=== PATIENT | female | born 1950 | race Caucasian/White ===

== ENCOUNTER 2020-06-07 13:37 | Outpatient (REF) | payer MEDICARE, MEDICAID, SELFPAY ==
--- NOTE | 2020-06-07 | MM_ITS ---
EXAMINATION: MM SCREENING DIGITAL BREAST TOMOSYNTHESIS, BILATERAL CLINICAL INFORMATION: Screening. Asymptomatic. The lifetime risk of breast cancer based on the Tyrer-Cuzick Model is 4.3%. COMPARISON: Mammography: January 28, 2019 and studies dating back to January 05, 2017 TECHNIQUE: Digital breast tomosynthesis is performed in both the craniocaudal and mediolateral oblique views along with computer-aided detection (CAD). Synthesized 2D images are generated from the tomosynthesis. FINDINGS: The breasts are almost entirely fatty (ACR BI-RADS breast composition Category a). There are no significant masses, abnormal calcifications, or other abnormalities. MM/MM tomosynthesis screening BI IMPRESSION: There are no significant changes from prior study. ASSESSMENT: BI-RADS 1: Negative RECOMMENDATION: Routine annual mammography screening. This patient's information was entered into a reminder system with a target due date for their next mammogram.
== END 2020-06-07 13:38 | disposition home or self-care (01) ==
LOC: HO.MAMMO 13:37
PROVIDERS: PCP Family Medicine; Visit Provider Family Medicine
DX: Z12.31 Encounter for screening mammogram for malignant neoplasm of breast (principal)
CPT/HCPCS: 77063; 77067

== ENCOUNTER 2020-06-28 17:42 | Outpatient (REF) | payer MEDICARE, MEDICAID, SELFPAY ==
[2020-06-28 18:28] LABS: Anion Gap 14 (12-20); Blood Urea Nitrogen 26 mg/dL (9-16); Carbon Dioxide 29 mmol/L (22-29); Chloride 104 mmol/L (96-108); Estimated Glomerular Filt Rate > 60; Glucose Random 95 mg/dL (60-115); Potassium 3.9 mmol/l (3.3-5.1); Sodium 143 mmol/L (135-145)
[2020-06-28 18:34] LABS: B Type Natriuretic Peptide 40 pg/mL (<100)
== END 2020-06-28 17:43 | disposition home or self-care (01) ==
LOC: HO.LAB 17:42
PROVIDERS: PCP Family Medicine; Visit Provider Family Medicine
DX: I50.9 Heart failure, unspecified (principal); R60.9 Edema, unspecified; Z00.00 Encounter for general adult medical examination without abnormal findings; E03.9 Hypothyroidism, unspecified
CPT/HCPCS: 80048; 83880; 84439; 84443

== ENCOUNTER 2020-07-17 15:34 | Outpatient (REF) | payer MEDICARE, MEDICAID, SELFPAY ==
[2020-07-17 15:57] LABS: MANUAL DIFF FLAG NO
[2020-07-17 15:59] LABS: Basophils Absolute Auto 0.1 X10*3/uL (0.0-0.2); Basophils Percent Auto 0.6 % (0-2); Eosinophils Absolute Auto 0.2 X10*3/uL (0.0-0.4); Eosinophils Percent Auto 2.1 % (0-4); Hematocrit 40.3 % (37-47); Hemoglobin 13.2 g/dl (12.0-16.0); Imm Gran Abs Auto 0.02 X10*3/uL (0.00-0.03); Imm Gran Pct Auto 0.2 % (0.0-0.4); Lymphocytes Absolute Auto 1.4 X10*3/uL (1.2-4.9); Lymphocytes Percent Auto 16.5 % (20-40); Mean Corpuscular HGB Conc 32.8 g/dl (31.0-35.0); Mean Corpuscular Hemoglobin 30.1 pg (27.0-33.0); Mean Platelet Volume 9.9 fL (9.4-12.3); Monocytes Absolute Auto 0.7 X10*3/uL (0.1-1.2); Monocytes Percent Auto 7.9 % (2-11); Neutrophils Absolute Auto 6.1 X10*3/uL (2.0-8.3); Neutrophils Percent Auto 72.7 % (45-73); Platelet Count 250 X10*3/uL (160-400); Red Blood Count 4.38 X10*6/uL (4.20-5.50); Red Cell Distribution Width 11.9 % (11.0-16.0); White Blood Count 8.5 X10*3/uL (4.8-10.8)
[2020-07-17 16:28] LABS: Iron 62 mcg/dL (30-160); Percent Iron Saturation 18 % (15-50); Total Iron Binding Capacity 339 mcg/dL (228-428); Unsaturated Iron Binding 277 ug/dL
== END 2020-07-17 15:35 | disposition home or self-care (01) ==
LOC: HO.LAB 15:34
PROVIDERS: PCP Family Medicine; Visit Provider Family Medicine
DX: R53.83 Other fatigue (principal)
CPT/HCPCS: 36415; 83540; 85025

== ENCOUNTER 2020-10-19 14:06 | Outpatient (REF) | payer MEDICARE, MEDICAID, SELFPAY ==
[2020-10-19 14:22] LABS: Glucose Urine UA NEG (NEG); Leukocyte Esterase Urine NEG (NEG); Nitrite Urine NEG (NEG); Specific Gravity - Urine 1.015 (1.005-1.025); Urine Blood TRACE (NEG); Urine Ketones NEG (NEG); Urine Protein NEG (NEG-TRACE)
[2020-10-19 14:23] LABS: Appearance Urine CLEAR; Color Urine YELLOW
[2020-10-19 14:36] LABS: Mucus Urine 1+ /LPF; Squamous Epithelial Cell Urine TRACE /LPF; WBC Urine 0-2 /HPF (0-4)
== END 2020-10-19 14:07 | disposition home or self-care (01) ==
LOC: HO.LNP 14:06
PROVIDERS: Visit Provider Family Medicine
DX: R82.998 Other abnormal findings in urine (principal)
CPT/HCPCS: 81001

== ENCOUNTER 2020-12-26 12:48 | Outpatient (REF) | payer MEDICARE, MEDICAID, SELFPAY ==
[2020-12-26 14:37] LABS: B Type Natriuretic Peptide 23 pg/mL (<100)
[2020-12-26 14:44] LABS: Anion Gap 12 (12-20); Blood Urea Nitrogen 34 mg/dL (9-16); Calcium 9.1 mg/dL (8.4-10.2); Carbon Dioxide 25 mmol/L (22-29); Chloride 105 mmol/L (96-108); Estimated Glomerular Filt Rate > 60; Glucose Random 119 mg/dL (60-115); Potassium 4.3 mmol/L (3.3-5.1); Sodium 138 mmol/L (135-145)
== END 2020-12-26 12:49 | disposition home or self-care (01) ==
LOC: HO.WFDLDS 12:48
PROVIDERS: Visit Provider Family Medicine
DX: Z00.00 Encounter for general adult medical examination without abnormal findings (principal); I50.9 Heart failure, unspecified
CPT/HCPCS: 36415; 80048; 83880

== ENCOUNTER 2021-01-01 13:44 | Outpatient (REF) | payer MEDICARE, MEDICAID, SELFPAY ==
--- NOTE | ~2021-01-01 | CT_ITS ---
EXAMINATION: CT CHEST WITHOUT CONTRAST CLINICAL INFORMATION: Pulmonary nodule COMPARISON: Previous chest x-ray December 2018 TECHNIQUE: Multidetector volumetric CT imaging of the chest was done. Axial MIP volume rendering provided. Sagittal and coronal reformatted images were obtained. This CT examination was performed using dose optimization techniques as appropriate, variously including the following: *Automated exposure control *Adjustment of mA and/or kV according to patient size (this includes techniques or standardized protocols for targeted exams where dose is matched to indication/reason for exam; i.e. extremities or head) *Use of iterative reconstruction technique DLP: 114 mGy-cm FINDINGS: LUNGS: There is right apical pleural thickening. There is a 6 mm right apical nodule axial image 86 series 7. This may be related to right apical pleural thickening. There is subsegmental atelectasis or scarring seen in the lingula. The lungs are otherwise clear. MEDIASTINUM: The mediastinum is normal. PLEURA: There is no pleural effusion. No pleural mass or thickening. AXILLA: No lymphadenopathy. UPPER ABDOMEN: There is a 5 mm low-attenuation lesion high in the right lobe of the liver axial image 50 series 3 probably representing a cyst. Images through the upper abdomen are otherwise unremarkable. OSSEOUS STRUCTURES: There is mild thoracolumbar scoliosis and degenerative change of the spine. CT/CT chest wo con IMPRESSION: Right apical pleural thickening. 6 mm peripheral or subpleural right apical pulmonary nodule. This may be related to pleural thickening.
== END 2021-01-01 13:45 | disposition home or self-care (01) ==
LOC: HO.CT 13:44
PROVIDERS: Visit Provider Family Medicine
DX: R91.1 Solitary pulmonary nodule (principal)
CPT/HCPCS: 71250

== ENCOUNTER 2021-01-25 12:35 | Outpatient (REF) | payer MEDICARE, MEDICAID, SELFPAY ==
--- NOTE | ~2021-01-25 | XR_ITS ---
EXAMINATION: XR BILATERAL HAND SERIES XR BILATERAL FOOT SERIES CLINICAL INFORMATION: Pain in hands and feet. COMPARISON: None. TECHNIQUE: 3 views of each hand. 3 views of each foot. FINDINGS: Right Hand: The bones, joints and soft tissues are normal. Left Hand: The bones, joints and soft tissues are normal. Right Foot: There is mild hallux valgus. Mild joint space narrowing of the 1st metatarsophalangeal joint. The bones, joints and soft tissues are otherwise normal. Left Foot: There is moderate hallux valgus. There is mild joint space narrowing of the 1st metatarsophalangeal joint. Remaining bones, joints and soft tissues are normal. XR/XR hand RT min 3V IMPRESSION: RIGHT AND LEFT HANDS: Normal. RIGHT FOOT: Hallux valgus with mild arthrosis of the 1st metatarsophalangeal joint. LEFT FOOT: Hallux valgus with mild arthrosis of the 1st metatarsophalangeal joint.
--- NOTE | ~2021-01-25 | XR_ITS ---
EXAMINATION: XR BILATERAL HAND SERIES XR BILATERAL FOOT SERIES CLINICAL INFORMATION: Pain in hands and feet. COMPARISON: None. TECHNIQUE: 3 views of each hand. 3 views of each foot. FINDINGS: Right Hand: The bones, joints and soft tissues are normal. Left Hand: The bones, joints and soft tissues are normal. Right Foot: There is mild hallux valgus. Mild joint space narrowing of the 1st metatarsophalangeal joint. The bones, joints and soft tissues are otherwise normal. Left Foot: There is moderate hallux valgus. There is mild joint space narrowing of the 1st metatarsophalangeal joint. Remaining bones, joints and soft tissues are normal. XR/XR foot LT 2V IMPRESSION: RIGHT AND LEFT HANDS: Normal. RIGHT FOOT: Hallux valgus with mild arthrosis of the 1st metatarsophalangeal joint. LEFT FOOT: Hallux valgus with mild arthrosis of the 1st metatarsophalangeal joint.
--- NOTE | ~2021-01-25 | XR_ITS ---
EXAMINATION: XR BILATERAL HAND SERIES XR BILATERAL FOOT SERIES CLINICAL INFORMATION: Pain in hands and feet. COMPARISON: None. TECHNIQUE: 3 views of each hand. 3 views of each foot. FINDINGS: Right Hand: The bones, joints and soft tissues are normal. Left Hand: The bones, joints and soft tissues are normal. Right Foot: There is mild hallux valgus. Mild joint space narrowing of the 1st metatarsophalangeal joint. The bones, joints and soft tissues are otherwise normal. Left Foot: There is moderate hallux valgus. There is mild joint space narrowing of the 1st metatarsophalangeal joint. Remaining bones, joints and soft tissues are normal. XR/XR hand LT min 3V IMPRESSION: RIGHT AND LEFT HANDS: Normal. RIGHT FOOT: Hallux valgus with mild arthrosis of the 1st metatarsophalangeal joint. LEFT FOOT: Hallux valgus with mild arthrosis of the 1st metatarsophalangeal joint.
--- NOTE | ~2021-01-25 | XR_ITS ---
EXAMINATION: XR BILATERAL HAND SERIES XR BILATERAL FOOT SERIES CLINICAL INFORMATION: Pain in hands and feet. COMPARISON: None. TECHNIQUE: 3 views of each hand. 3 views of each foot. FINDINGS: Right Hand: The bones, joints and soft tissues are normal. Left Hand: The bones, joints and soft tissues are normal. Right Foot: There is mild hallux valgus. Mild joint space narrowing of the 1st metatarsophalangeal joint. The bones, joints and soft tissues are otherwise normal. Left Foot: There is moderate hallux valgus. There is mild joint space narrowing of the 1st metatarsophalangeal joint. Remaining bones, joints and soft tissues are normal. XR/XR foot RT 2V IMPRESSION: RIGHT AND LEFT HANDS: Normal. RIGHT FOOT: Hallux valgus with mild arthrosis of the 1st metatarsophalangeal joint. LEFT FOOT: Hallux valgus with mild arthrosis of the 1st metatarsophalangeal joint.
[2021-01-25 14:02] LABS: MANUAL DIFF FLAG NO
[2021-01-25 14:09] LABS: Basophils Percent Auto 0.8 % (0-2); Eosinophils Absolute Auto 0.2 X10*3/uL (0.0-0.4); Eosinophils Percent Auto 4.4 % (0-4); Hematocrit 41.1 % (37-47); Hemoglobin 13.3 g/dl (12.0-16.0); Imm Gran Abs Auto 0.01 X10*3/uL (0.00-0.03); Imm Gran Pct Auto 0.2 % (0.0-0.4); Lymphocytes Absolute Auto 1.1 X10*3/uL (1.2-4.9); Lymphocytes Percent Auto 22.2 % (20-40); Mean Corpuscular HGB Conc 32.4 g/dl (31.0-35.0); Mean Corpuscular Hemoglobin 29.7 pg (27.0-33.0); Mean Corpuscular Volume 91.7 fL (80-98); Monocytes Absolute Auto 0.4 X10*3/uL (0.1-1.2); Monocytes Percent Auto 7.9 % (2-11); Neutrophils Absolute Auto 3.2 X10*3/uL (2.0-8.3); Neutrophils Percent Auto 64.5 % (45-73); Platelet Count 273 X10*3/uL (160-400); Red Blood Count 4.48 X10*6/uL (4.20-5.50); Red Cell Distribution Width 12.1 % (11.0-16.0)
[2021-01-25 14:41] LABS: Alanine Aminotransferase 16 U/L (0-31); Albumin Level 4.1 g/dL (3.5-5.0); Alkaline Phosphatase 89 U/L (39-117); Anion Gap 14 (12-20); Aspartate Amino Transferase 19 U/L (5-31); Bilirubin Total 0.4 mg/dL (0.0-1.0); Blood Urea Nitrogen 24 mg/dL (9-16); C Reactive Protein 0.12 mg/dL (< or = 0.50); Calcium 9.8 mg/dL (8.4-10.2); Carbon Dioxide 27 mmol/L (22-29); Chloride 104 mmol/L (96-108); Estimated Glomerular Filt Rate > 60; Glucose Random 78 mg/dL (60-115); Potassium 4.6 mmol/L (3.3-5.1); Sodium 140 mmol/L (135-145); Total Protein 7.3 g/dL (6.5-8.0)
[2021-01-25 14:51] LABS: Rheumatoid Factor < 15.0 IU/mL (<15.0)
[2021-01-25 14:52] LABS: Thyroid Stimulating Hormone 2.71 uIU/mL (0.32-4.0)
[2021-01-25 15:08] LABS: Erythrocyte Sedimentation Rate 12 MM/HR (0-20)
[2021-01-30 09:42] LABS: Cyclic Citrullinated Peptide <16 UNITS
[2021-01-31 20:12] LABS: Vitamin D 25-OH, D2 <4 ng/mL; Vitamin D 25-OH, D3 22 ng/mL; Vitamin D 25-OH, Total 22 ng/mL (30-100)
== END 2021-01-25 12:36 | disposition home or self-care (01) ==
LOC: HO.LAB 12:35
PROVIDERS: PCP Family Medicine; Visit Provider Student in an Organized Health Care Education/Training Program
DX: M25.50 Pain in unspecified joint (principal); M79.641 Pain in right hand; M79.642 Pain in left hand; M25.551 Pain in right hip; M79.672 Pain in left foot; M79.671 Pain in right foot; Z79.899 Other long term (current) drug therapy; Z87.891 Personal history of nicotine dependence
CPT/HCPCS: 36415; 73130; 73620; 80053; 82306; 84443; 85025; 85652; 86140; 86200; 86431; 99202

== ENCOUNTER 2021-06-27 11:34 | Outpatient (REF) | payer MEDICARE, MEDICAID, SELFPAY ==
[2021-06-27 13:53] LABS: MANUAL DIFF FLAG NO
[2021-06-27 14:01] LABS: Basophils Percent Auto 0.6 % (0-2); Eosinophils Absolute Auto 0.1 X10*3/uL (0.0-0.4); Eosinophils Percent Auto 1.5 % (0-4); Hematocrit 39.1 % (37.0-47.0); Hemoglobin 12.8 g/dl (12.0-16.0); Imm Gran Abs Auto 0.02 X10*3/uL (0.00-0.03); Imm Gran Pct Auto 0.3 % (0.0-0.4); Lymphocytes Absolute Auto 1.1 X10*3/uL (1.2-4.9); Mean Corpuscular HGB Conc 32.7 g/dl (31.0-35.0); Mean Corpuscular Volume 91.6 fL (80.0-98.0); Monocytes Absolute Auto 0.6 X10*3/uL (0.1-1.2); Neutrophils Absolute Auto 4.7 x10*3/uL (2.0-8.3); Neutrophils Percent Auto 71.6 % (45-73); Platelet Count 267 X10*3/uL (160-400); Red Blood Count 4.27 X10*6/uL (4.20-5.50); Red Cell Distribution Width 12.4 % (11.0-16.0); White Blood Count 6.6 X10*3/uL (4.8-10.8)
[2021-06-27 14:11] LABS: Appearance Urine HAZY; Color Urine YELLOW; Glucose Urine UA NEG (NEG); Leukocyte Esterase Urine TRACE (NEG); Nitrite Urine NEG (NEG); Specific Gravity - Urine >= 1.030 (1.005-1.025); Urine Blood NEG (NEG); Urine Ketones 5 MG/DL (NEG); Urine Protein TRACE MG/DL (NEG-TRACE)
[2021-06-27 14:28] LABS: Alanine Aminotransferase 15 U/L (0-31); Albumin Level 4.2 g/dL (3.5-5.0); Alkaline Phosphatase 89 U/L (39-117); Anion Gap 12 (12-20); Aspartate Amino Transferase 18 U/L (5-31); Bilirubin Total 0.4 mg/dL (0.0-1.0); Blood Urea Nitrogen 20 mg/dL (9-16); Calcium 9.4 mg/dL (8.4-10.2); Carbon Dioxide 28 mmol/L (22-29); Chloride 105 mmol/L (96-108); Estimated Glomerular Filt Rate > 60; Glucose Random 115 mg/dL (60-115); Potassium 3.9 mmol/L (3.3-5.1); Sodium 141 mmol/L (135-145); Total Protein 7.2 g/dL (6.5-8.0)
[2021-06-27 14:37] LABS: Amorphous Sediment Urine 3+ /LPF; RBC Urine 0 /HPF (0); WBC Urine 0-2 /HPF (0-4)
== END 2021-06-27 11:35 | disposition home or self-care (01) ==
LOC: HO.WFDLDS 11:34
PROVIDERS: Visit Provider Family Medicine
DX: Z00.00 Encounter for general adult medical examination without abnormal findings (principal)
CPT/HCPCS: 36415; 80053; 81001; 81003; 85025

== ENCOUNTER 2021-06-28 09:36 | Emergency (ER) | payer MEDICARE, MEDICAID, SELFPAY ==
--- NOTE | ~2021-06-28 | XR_ITS ---
EXAMINATION: XR CHEST CLINICAL INFORMATION: SOB. COMPARISON: CT chest 01/01/2021. Chest x-ray 01/13/2019 TECHNIQUE: 2 views of the chest were obtained. FINDINGS: The lungs are expanded and clear of acute process. Heart size is enlarged. Pulmonary vascularity is normal. No gross bony abnormality seen. XR/XR chest 2V IMPRESSION: Mild cardiomegaly. No acute process seen.
[2021-06-28 09:46] VITALS: BP 125/74; PULSE 80; RESP 20; TEMP 36.9; O2SAT 95; BMI 20.3
--- NOTE | 2021-06-28 09:54 | ED.SOB ---
HPI - SOB/Dyspnea General Chief Complaint: Dyspnea Stated Complaint: shortness of breath Time Seen by Provider: 06/28/21 09:53 Source: patient Mode of arrival: EMS Limitations: no limitations History of Present Illness HPI Narrative: 70-year-old female presents via EMS for shortness of breath today. Patient states that her house is being foreclosed on. The person who bought her house gave her extra time for her to move her stuff out. However, today when she went to the house, most of her stuff was in the dumpster, and she could not catch her breath trying to get the stuff out of the dumpster. States she was not supposed to be at the house, and when the police were called, and she could not catch her breath. Patient is tangential in her speech, however, states that she has been more short of breath for the last 6 months especially when climbing stairs. States she has no chest pain, and is mildly short of breath now. Patient is in no respiratory distress, and satting 95% on room air. States she has had a mild cough for the last few days. No vomiting, diarrhea, fevers, or foot swelling. Patient former smoker. RN tells me that EMS states that the house had appearance hoarding. Related Data Home Medications Medication Instructions Recorded Confirmed cyproheptadine 4 mg tablet mg PO 06/19/20 06/27/21 dextroamphetamine-amphetamine 20 PO 06/19/20 06/27/21 mg tablet lorazepam 1 mg tablet mg PO 06/19/20 06/27/21 Previous Rx's Medication Instructions Recorded verapamil 360 mg 24 hr 360 mg PO DAILY #90 cap 06/26/20 capsule,extended release clonidine HCl 0.3 mg tablet 0.3 mg PO TID 90 Days #270 tab 09/28/20 hydrocortisone 1 % lotion 1 appl TOPICAL BID PRN 30 Days 10/19/20 #120 ml clotrimazole-betamethasone 1 1 appl TOPICAL BID 14 Days #60 g 01/24/21 %-0.05 % topical cream Allergies Allergy/AdvReac Type Severity Reaction Status Date / Time acetaminophen [ACETAMINOPHEN] Allergy Unknown BAD EFFECTS Verified 06/27/21 11:01 Penicillins [PENICILLINS] Allergy Unknown UNKNOWN-SICK Verified 06/27/21 11:01 DAYS LATER Sulfa (Sulfonamide Allergy Unknown UNKNOWN- Verified 06/27/21 11:01 Antibiotics) SICK DAYS [SULFA (SULFONAMIDE LATER, ANTIBIOTICS)] hives Review of Systems Constitutional: Constitutional: Denies body ache(s), Denies chills, Denies fatigue, Denies fever(s), Denies headache(s), Denies malaise and Denies weakness Eyes: Eyes: Denies diplopia ENT: Denies vertigo, Denies dizziness, Denies otalgia, Denies headache(s), Denies mouth pain, Denies post nasal drip, Denies sinus pain, Denies sinus pressure, Denies sore throat and Denies throat swelling Cardiovascular: Cardiovascular: Denies chest pain, Denies syncope, Denies leg edema, Denies lightheadedness, Denies Loss of Consciousness, Denies palpitations and Reports dyspnea Respiratory: Respiratory: Denies chest congestion, Denies cough and Reports dyspnea Gastrointestinal: Gastrointestinal: Denies abdominal pain, Denies hematochezia, Denies constipation, Denies diarrhea and Denies vomiting Musculoskeletal: Musculoskeletal: Reports no additional musculoskeletal complaints Neurologic: Denies confusion, Denies vertigo, Denies dizziness, Denies syncope, Denies headache(s) and Denies weakness Psychiatric: Psychiatric: Denies anxiety, Denies confusion and Denies depression Endocrine: Endocrine: Denies fatigue and Denies palpitations Allergic/Immunologic: Allergic/Immunologic: Denies throat swelling PMFSH Past Medical History Medical History Hypothyroid PFO (patent foramen ovale) Pulmonary nodule 1 cm or greater in diameter Surgical History History of wisdom tooth extraction Social History Social History Housing: House Alcohol intake: current Alcohol intake frequency: holidays/special occasions only Patient Tobacco Use Status: Former Tobacco user Quit Date: 33 years ago Tobacco use type: Cigarette Cigarettes Per Day: 20 Years Smoked: 13 Use of substances other than those prescribed or required for medical reasons: No Advance Directives: No Advance Directives Information Provided: No service: No Current occupational status: retired Physical Exam Vital Signs: Vital Signs: Last Vital Signs Temp 98.5 F 06/28/21 09:46 Pulse 96 06/28/21 12:24 Resp 18 06/28/21 12:24 BP 131/67 06/28/21 12:24 Pulse Ox 95 06/28/21 12:24 BMI result Body Mass Index 20.3 Const: General: no acute distress and ill appearing chronically; No confusion or well groomed Nutritional Appearance: cachectic Orientation/consciousness: patient oriented x3 and No confusion Limitations: no limitations HENMT: Head: Yes normal to inspection, Yes normocephalic and Yes atraumatic Ears: hearing grossly normal bilaterally, external ears normal, TM's normal bilaterally and EAC's normal General nose exam: Normal external nose present Face and sinus: Yes normal facial exam and Yes sinuses nontender Mouth: Normal oral and palatal mucosa present Throat: Yes posterior oropharynx normal Eyes: Conjunctivae: conjunctivae normal Pupils: Equal, round and reactive pupils present EOM: EOMs intact bilaterally Neck: Neck: Yes full ROM, Yes no lymphadenopathy and Yes supple Resp: Effort & Inspection: normal respiratory effort and able to speak in complete sentences Auscultation: clear to auscultation bilaterally, no crackles, no rales, no rhonchi and no wheezes Cardio: Rate: regular rate Rhythm: regular rhythm Heart sounds: S1 normal heart sound present and S2 normal heart sound present GI: Inspection: Yes normal to inspection Palpation (GI): Soft to palpation, nontender, no guarding and not rigid Percussion: Yes normal to percussion Auscultation: normal bowel sounds Skin: General skin exam: no rashes or lesions noted Neuro: General: patient oriented x3 and No confusion Cranial nerves: Yes Equal, round and reactive pupils present Extrem: General: Yes normal to inspection and Yes full ROM Psych: Appearance: grossly normal Affect: normal affect Attitude: cooperative Thought process: Normal thought process present Course Course Course Narrative: 70-year-old female who became short of breath wall trying to clean her stuff out of a dumpster in the yard of her house which is being foreclosed on today. On exam, patient is satting 95% on room air, is in no respiratory distress. Lungs clear to auscultation bilaterally. Patient is mildly cachectic, with tangential speech. Patient lives with her son and does not live in foreclosed house. Plan is to get EKG, troponin, chest x-ray, urine, labs, BNP. FINDINGS: The lungs are expanded and clear of acute process. Heart size is enlarged. Pulmonary vascularity is normal. No gross bony abnormality seen. XR/XR chest 2V IMPRESSION: Mild cardiomegaly. No acute process seen. Reevaluation(s) Reevaluation #1: Patient's vitals have remained stable, she is not hypoxic, she is satting 95% on room air, not tachypneic. EKG head no ischemic changes, troponin was negative, chest x-ray showed mild cardiomegaly, however BNP was within normal limits. CBC and CMP were unremarkable. Discussed with patient that she must call her PCP today, make a follow-up appointment and see her within the next 3-5 days. Discussed with patient that she must return to the emergency room for any chest pain or shortness of breath. Patient verbalized agreement and understanding of the plan. All patient's questions were answered to her satisfaction. MDM - SOB/Dyspnea Lab Data Result diagrams: 06/28/21 11:22 06/28/21 11:22 Labs: Lab Results 06/28/21 06/28/21 06/28/21 Range/Units 11:22 11:22 11:22 WBC 7.2 (4.8-10.8) X10*3/uL RBC 4.33 (4.20-5.50) X10*6/uL Hgb 13.1 (12.0-16.0) g/dl Hct 39.4 (37.0-47.0) % MCV 91.0 (80.0-98.0) fL MCH 30.3 (27.0-33.0) pg MCHC 33.2 (31.0-35.0) g/dl RDW 12.2 (11.0-16.0) % Plt Count 250 (160-400) X10*3/uL MPV 10.1 (9.4-12.3) fL Immature Gran % (Auto) 0.1 (0.0-0.4) % Neut % (Auto) 80.3 H (45-73) % Lymph % (Auto) 11.1 L (20-40) % [place] % (Auto) 6.6 (2-11) % Eos % (Auto) 1.5 (0-4) % Baso % (Auto) 0.4 (0-2) % Lymph # (Auto) 0.8 L (1.2-4.9) X10*3/uL [place] # (Auto) 0.5 (0.1-1.2) X10*3/uL Eos # (Auto) 0.1 (0.0-0.4) X10*3/uL Baso # (Auto) 0.0 (0.0-0.2) X10*3/uL Abs Immat Gran (auto) 0.01 (0.00-0.03) X10*3/uL Absolute Neuts (auto) 5.8 (2.0-8.3) x10*3/uL Absolute Nucleated RBC 0.000 (0.0-0.012) X10*3/uL Nucleated RBC % (auto) 0.0 (0.0-0.2) /100WBC Sodium 141 (135-145) mmol/L Potassium 3.9 (3.3-5.1) mmol/L Chloride 106 (96-108) mmol/L Carbon Dioxide 24 (22-29) mmol/L Anion Gap 15 (12-20) BUN 21 H (9-16) mg/dL Creatinine 0.83 (0.5-1.4) mg/dL Estim Creat Clear Calc 52.6 Estimated GFR > 60 Random Glucose 91 (60-115) mg/dL Calcium 9.4 (8.4-10.2) mg/dL Total Bilirubin 0.7 (0.0-1.0) mg/dL AST 20 (5-31) U/L ALT 16 (0-31) U/L Alkaline Phosphatase 91 (39-117) U/L Troponin I High Sens 3.7 (<3.5-17.0) ng/L B-Natriuretic Peptide 66 (<100) pg/mL Total Protein 6.9 (6.5-8.0) g/dL Albumin 4.0 (3.5-5.0) g/dL ECG Data Interpretation: EKG shows normal sinus at a rate of 68, W[place] 198, QRS 70, QTC 457, left-sided axis. No ST depressions or elevations. Discharge Plan Discharge Clinical Impression: Exertional shortness of breath Patient Disposition: Home, Self-Care Instructions: Shortness of Breath (ED) Additional Instructions: Please return to the emergency room if you have chest pain or shortness of breath. Please call your primary care provider today for follow-up appointment early next week. Prescriptions: No Action verapamil 360 mg capsule,ext rel. pellets 24 hr 360 mg PO DAILY Qty: 90 RF: 2 clonidine HCl 0.3 mg tablet 0.3 mg PO TID 90 Days Qty: 270 RF: 2 clotrimazole-betamethasone 1-0.05 % cream 1 appl topical BID 14 Days Qty: 60 RF: 1 lorazepam 1 mg tablet PO RF: 0 dextroamphetamine-amphetamine 20 mg tablet PO RF: 0 cyproheptadine 4 mg tablet PO RF: 0 hydrocortisone 1 % lotion 1 appl topical BID PRN (Reason: skin irritation) 30 Days Qty: 120 RF: 3
--- NOTE | 2021-06-28 10:07 | ECG_ITS ---
Test Reason : DYSPNEA Blood Pressure : / mmHG Vent. Rate : 068 BPM Atrial Rate : 068 BPM P-R Int : 198 ms QRS Dur : 078 ms QT Int : 430 ms P-R-T Axes : 043 -26 025 degrees QTc Int : 457 ms Artifact in tracing Normal sinus rhythm Minimal voltage criteria for LVH, may be normal variant ( R in aVL ) Inferior infarct (cited on or before 13-JAN-2019) Anterior infarct , age undetermined Abnormal ECG When compared with ECG of 13-JAN-2019 13:42, No significant change was found Referred By: Yoselin Nicole Electronically Signed By:CAIN SAVAGE
[2021-06-28 11:27] LABS: MANUAL DIFF FLAG NO
[2021-06-28 11:29] LABS: Basophils Percent Auto 0.4 % (0-2); Eosinophils Absolute Auto 0.1 X10*3/uL (0.0-0.4); Eosinophils Percent Auto 1.5 % (0-4); Hematocrit 39.4 % (37.0-47.0); Hemoglobin 13.1 g/dl (12.0-16.0); Imm Gran Abs Auto 0.01 X10*3/uL (0.00-0.03); Imm Gran Pct Auto 0.1 % (0.0-0.4); Lymphocytes Absolute Auto 0.8 X10*3/uL (1.2-4.9); Lymphocytes Percent Auto 11.1 % (20-40); Mean Corpuscular HGB Conc 33.2 g/dl (31.0-35.0); Mean Corpuscular Hemoglobin 30.3 pg (27.0-33.0); Mean Platelet Volume 10.1 fL (9.4-12.3); Monocytes Absolute Auto 0.5 X10*3/uL (0.1-1.2); Monocytes Percent Auto 6.6 % (2-11); Neutrophils Absolute Auto 5.8 x10*3/uL (2.0-8.3); Neutrophils Percent Auto 80.3 % (45-73); Platelet Count 250 X10*3/uL (160-400); Red Blood Count 4.33 X10*6/uL (4.20-5.50); Red Cell Distribution Width 12.2 % (11.0-16.0); White Blood Count 7.2 X10*3/uL (4.8-10.8)
[2021-06-28 11:47] LABS: Alanine Aminotransferase 16 U/L (0-31); Alkaline Phosphatase 91 U/L (39-117); Anion Gap 15 (12-20); Aspartate Amino Transferase 20 U/L (5-31); Bilirubin Total 0.7 mg/dL (0.0-1.0); Blood Urea Nitrogen 21 mg/dL (9-16); Calcium 9.4 mg/dL (8.4-10.2); Carbon Dioxide 24 mmol/L (22-29); Chloride 106 mmol/L (96-108); Creatinine Clr Calc Pharmacy 52.6; Estimated Glomerular Filt Rate > 60; Glucose Random 91 mg/dL (60-115); Potassium 3.9 mmol/L (3.3-5.1); Sodium 141 mmol/L (135-145); Total Protein 6.9 g/dL (6.5-8.0)
[2021-06-28 11:51] LABS: B Type Natriuretic Peptide 66 pg/mL (<100); Troponin-I High Sensitivity 3.7 ng/L (<3.5-17.0)
[2021-06-28 12:24] VITALS: BP 131/67; PULSE 96; RESP 18; O2SAT 95
== END 2021-06-28 13:46 | disposition home or self-care (01) ==
PROVIDERS: Physician Assistant; Emergency Provider Emergency Medicine; PCP Family Medicine
DX: R06.02 Shortness of breath (principal); I51.7 Cardiomegaly
CPT/HCPCS: 36415; 71046; 80053; 83880; 84484; 85025; 93005; 99284

== ENCOUNTER → 2021-10-29 14:06 | Outpatient (BNVA) | payer MEDICARE, MEDICAID, SELFPAY | PROVIDERS: PCP Family Medicine; Referring Provider Hospitalist; Visit Provider Internal Medicine | DX: Q21.1 Atrial septal defect (principal); I10 Essential (primary) hypertension; R06.02 Shortness of breath | CPT/HCPCS: 99202 ==

== ENCOUNTER 2022-05-16 15:29 | Outpatient (REF) | payer MEDICARE, MEDICAID, SELFPAY ==
[2022-05-16 15:45] LABS: MANUAL DIFF FLAG NO
[2022-05-16 16:01] LABS: Basophils Percent Auto 0.9 % (0-2); Eosinophils Absolute Auto 0.3 X10*3/uL (0.0-0.4); Eosinophils Percent Auto 5.6 % (0-4); Hematocrit 37.6 % (37.0-47.0); Hemoglobin 12.6 g/dl (12.0-16.0); Lymphocytes Absolute Auto 1.7 X10*3/uL (1.2-4.9); Lymphocytes Percent Auto 37.2 % (20-40); Mean Corpuscular HGB Conc 33.5 g/dl (31.0-35.0); Mean Corpuscular Hemoglobin 30.6 pg (27.0-33.0); Mean Corpuscular Volume 91.3 fL (80.0-98.0); Mean Platelet Volume 10.3 fL (9.4-12.3); Monocytes Absolute Auto 0.4 X10*3/uL (0.1-1.2); Monocytes Percent Auto 8.9 % (2-11); Neutrophils Absolute Auto 2.1 x10*3/uL (2.0-8.3); Neutrophils Percent Auto 47.4 % (45-73); Platelet Count 240 X10*3/uL (160-400); Red Blood Count 4.12 X10*6/uL (4.20-5.50); Red Cell Distribution Width 12.3 % (11.0-16.0); White Blood Count 4.5 X10*3/uL (4.8-10.8)
[2022-05-16 16:26] LABS: Alanine Aminotransferase 14 U/L (0-31); Albumin Level 4.1 g/dL (3.5-5.0); Alkaline Phosphatase 62 U/L (39-117); Anion Gap 15 (12-20); Aspartate Amino Transferase 23 U/L (5-31); Bilirubin Total 0.4 mg/dL (0.0-1.0); Blood Urea Nitrogen 27 mg/dL (9-16); Calcium 9.9 mg/dL (8.4-10.2); Carbon Dioxide 26 mmol/L (22-29); Chloride 102 mmol/L (96-108); Estimated Glomerular Filt Rate 59; Glucose Fasting 90 mg/dL (60-99); Magnesium 2.1 mg/dL (1.6-2.6); Phosphorus 4.1 mg/dL (2.7-4.5); Potassium 4.2 mmol/L (3.3-5.1); Sodium 139 mmol/L (135-145)
[2022-05-16 16:47] LABS: Free T4 (Free Thyroxine) 1.05 ng/dL (0.71-1.85); Thyroid Stimulating Hormone 4.33 uIU/mL (0.32-4.0)
[2022-05-16 17:29] LABS: Appearance Urine Clear; Color Urine Dark Yellow; Glucose Urine UA Negative (Negative); Leukocyte Esterase Urine Small (1+) (Negative); Nitrite Urine Negative (Negative); Specific Gravity - Urine >= 1.030 (1.005-1.025); UMIC TRIGGER UA YES; Urine Blood Negative (Negative); Urine Ketones Trace mg/dL (Negative); Urine Protein Trace mg/dL (Neg-Trace)
[2022-05-16 17:34] LABS: Bacteria Urine Trace (None Seen); RBC Urine 0-2 /HPF (0-2)
[2022-05-16 18:03] LABS: Erythrocyte Sedimentation Rate 7 MM/HR (0-20)
[2022-05-18 15:37] LABS: Triiodothyronine T3 Total 125 ng/dL (76-181)
[2022-05-19 12:27] LABS: CRP High Sensitivity 0.9 mg/L
== END 2022-05-16 15:30 | disposition home or self-care (01) ==
LOC: HO.LAB 15:29
PROVIDERS: PCP Family Medicine; Visit Provider Family Medicine
DX: Z00.00 Encounter for general adult medical examination without abnormal findings (principal); E03.9 Hypothyroidism, unspecified; R06.02 Shortness of breath; R21 Rash and other nonspecific skin eruption
CPT/HCPCS: 36415; 80053; 81001; 83735; 84100; 84439; 84443; 84480; 85025; 85652; 86141

== ENCOUNTER 2022-07-04 10:52 | Outpatient (REF) | payer MEDICARE, MEDICAID, SELFPAY ==
--- NOTE | ~2022-07-04 | US_ITS ---
EXAMINATION: US ABDOMEN LIMITED CLINICAL INFORMATION: Liver disease, unspecified. COMPARISON: CT chest 01/01/2021. TECHNIQUE: Real-time imaging of the right upper quadrant abdominal viscera. FINDINGS: PANCREAS: Pancreatic duct measures 3 mm which is within upper limits of normal. Pancreas is otherwise unremarkable. LIVER: The liver is normal in size. The liver contour is normal. Coarse hepatic echotexture which can be seen in the setting of underlying liver disease. No focal hepatic lesion. There is no intrahepatic biliary duct dilatation seen. GALLBLADDER: Normal. The gallbladder is physiologically distended without evidence of stones, sludge, polyps, wall thickening or pericholecystic fluid. COMMON BILE DUCT: Normal in caliber measuring 0.5 cm in diameter. RIGHT KIDNEY: Right renal pelviectasis and mild hydroureter without aleksander hydronephrosis. Bilateral ureteral jets were seen in the bladder. No renal calculi or focal parenchymal lesions.The kidney measures 10.4 cm in maximum dimension. FREE FLUID: None. US/US abdomen limited IMPRESSION: Coarse hepatic echotexture which can be seen in the setting of underlying liver disease. No focal hepatic lesion. Right renal pelviectasis and mild hydroureter without aleksander hydronephrosis. Bilateral ureteral jets were seen in the bladder. Pancreatic duct measures 3 mm which is within upper limits of normal.
== END 2022-07-04 10:53 | disposition home or self-care (01) ==
LOC: HO.US 10:52
PROVIDERS: Visit Provider Family Medicine
DX: K76.9 Liver disease, unspecified (principal)
CPT/HCPCS: 76705

== ENCOUNTER 2022-08-12 10:11 | Outpatient (REF) | payer MEDICARE, MEDICAID, SELFPAY ==
[2022-08-12 14:01] LABS: MANUAL DIFF FLAG NO
[2022-08-12 14:14] LABS: Basophils Percent Auto 0.9 % (0-2); Eosinophils Absolute Auto 0.1 X10*3/uL (0.0-0.4); Hematocrit 39.2 % (37.0-47.0); Hemoglobin 12.9 g/dl (12.0-16.0); Imm Gran Abs Auto 0.02 X10*3/uL (0.00-0.03); Imm Gran Pct Auto 0.4 % (0.0-0.4); Lymphocytes Absolute Auto 1.2 X10*3/uL (1.2-4.9); Lymphocytes Percent Auto 26.2 % (20-40); Mean Corpuscular HGB Conc 32.9 g/dl (31.0-35.0); Mean Corpuscular Volume 91.2 fL (80.0-98.0); Mean Platelet Volume 10.4 fL (9.4-12.3); Monocytes Absolute Auto 0.4 X10*3/uL (0.1-1.2); Monocytes Percent Auto 9.5 % (2-11); Neutrophils Absolute Auto 2.8 x10*3/uL (2.0-8.3); Platelet Count 260 X10*3/uL (160-400); Red Cell Distribution Width 11.7 % (11.0-16.0); White Blood Count 4.6 X10*3/uL (4.8-10.8)
[2022-08-12 15:02] LABS: Erythrocyte Sedimentation Rate 8 MM/HR (0-20)
[2022-08-12 15:16] LABS: Alanine Aminotransferase 13 U/L (0-31); Albumin Level 4.2 g/dL (3.5-5.0); Alkaline Phosphatase 65 U/L (39-117); Anion Gap 12 (12-20); Aspartate Amino Transferase 17 U/L (5-31); Bilirubin Total 0.4 mg/dL (0.0-1.0); Blood Urea Nitrogen 23 mg/dL (9-16); Calcium 9.6 mg/dL (8.4-10.2); Carbon Dioxide 27 mmol/L (22-29); Chloride 103 mmol/L (96-108); Estimated Glomerular Filt Rate > 60; Glucose Random 92 mg/dL (60-115); Potassium 4.4 mmol/L (3.3-5.1); Sodium 138 mmol/L (135-145); Total Protein 7.2 g/dL (6.5-8.0)
[2022-08-12 15:32] LABS: Free T4 (Free Thyroxine) 0.98 ng/dL (0.71-1.85)
[2022-08-13 08:48] LABS: Triiodothyronine T3 Total 133 ng/dL (76-181)
[2022-08-13 13:14] LABS: CRP High Sensitivity 0.8 mg/L
== END 2022-08-12 10:12 | disposition home or self-care (01) ==
LOC: HO.WFDLDS 10:11
PROVIDERS: Visit Provider Family Medicine
DX: Z00.00 Encounter for general adult medical examination without abnormal findings (principal); R22.0 Localized swelling, mass and lump, head; E03.9 Hypothyroidism, unspecified
CPT/HCPCS: 36415; 80053; 84439; 84443; 84480; 85025; 85652; 86141

== ENCOUNTER 2023-02-03 16:04 | Outpatient (AMB) | payer MEDICARE, MEDICAID, SELFPAY ==
[2023-02-03 16:10] VITALS: BP 120/76; PULSE 73; O2SAT 99; BMI 21.1
--- NOTE | 2023-02-03 16:10 | MHC.PC.OV ---
Vital Signs 02/03/23 16:10 Height 5 ft 3 in Weight 119 lb BMI 21.1 BP 120/76 Blood Pressure Location Lt brachial Position Sitting Pulse 73 Pulse Source Pulse Oximeter Pulse Oximetry (%) 99 Oxygen Delivery Method Room Air Intake Visit Reasons: Follow up chronic conditions Intake Note: Patient is here to follow up on chronic conditions Allergies Penicillins [PENICILLINS] Allergy (Unknown, Verified 02/03/23 16:11) UNKNOWN-SICK DAYS LATER Sulfa (Sulfonamide Antibiotics) [SULFA (SULFONAMIDE ANTIBIOTICS)] Allergy (Unknown, Verified 02/03/23 16:11) UNKNOWN- SICK DAYS LATER, hives acetaminophen [ACETAMINOPHEN] Adverse Reaction (Severe, Verified 02/03/23 16:11) BAD EFFECTS Tobacco use date assessed: 08/12/22 Fall risk assessment: No Falls in past year Last assessed Fall Risk: 02/03/23 Dental Screening Dental Screen Date: 02/03/23 Did you have a dental visit in the last 12 months?: Yes Did you have a dental problem in the last 6 months where you did not have access to dental care?: No Was dental information given to patient?: No HPI HPI Comments History of Present Illness Details 72 y/o female presents to f/u chronic conditions. Pt has had MRSA which she had followed up with infectious disease for and finished antibiotic course. This appears resolved Patient has other numerous complaints such as dermatitis on face which has been longstanding and also on her feet. She has a history of hypothyroidism and does not take her thyroid medication. [facility] Medical History PFO (patent foramen ovale) Pulmonary nodule 1 cm or greater in diameter Surgical History History of wisdom tooth extraction Family History Father No problems noted. Mother No problems noted. Social History Housing: House (With Son) Alcohol intake: current Alcohol intake frequency: holidays/special occasions only Patient Tobacco Use Status: Former Tobacco user Quit Date: 33 years ago Tobacco use type: Cigarette Cigarettes Per Day: 20 Years Smoked: 13 e-Cigarette/Vaping Use: Never Used service: No Current occupational status: retired Cognitive needs: No Hearing needs: No Vision needs: No Questionnaire PHQ-9 Over the last 2 weeks, how often have you been bothered by any of the following problems? 1. Little interest or pleasure in doing things: not at all 2. Feeling down, depressed, or hopeless: not at all 3. Trouble falling or staying asleep, or sleeping too much: not at all 4. Feeling tired or having little energy: not at all 5. Poor appetite or overeating: several days 6. Feeling bad about yourself - or that you are a failure or have let yourself or your family down: several days 7. Trouble concentrating on things, such as reading the newspaper or watching television: several days 8. Moving or speaking so slowly that other people could have noticed. Or the opposite - being so fidgety or restless that you have been moving around a lot more than usual: not at all 9. Thoughts that you would be better off or of hurting yourself in some way: not at all Total score: 3 Source: Developed by Drs. Castro Healy, Crys Luna, Salas Pressley and colleagues, with an educational cleo from [employer]. Thrive Questionnaire Date Thrive assessed: 04/19/21 JASMINE-7 AMB Questionnaire JASMINE-7 Date JASMINE - 7 assessed: 08/12/22 Source: Developed by Drs. Castro Healy, Crys Luna, Salas Pressley and colleagues, with an educational cleo from [employer]. Review of Systems Const Denies chills, Denies fatigue, Denies fever(s), Denies headache(s) and Denies weakness ENT Denies dizziness and Denies headache(s) Card Denies chest pain, Denies lightheadedness, Denies dyspnea and Denies other (Palpitations) Resp Denies cough, Denies dyspnea, Denies wheezing and Denies other ( shortness of breath) Musc Denies numbness and Denies tingling Neuro Denies dizziness, Denies headache(s), Denies numbness, Denies tingling, Denies paresthesias and Denies weakness Psych Denies anxiety and Denies depression Endo Denies fatigue Aller/Immun Denies wheezing Physical exam (Primary Care) Vital Signs: Last Vital Signs Pulse 73 02/03/23 16:10 BP 120/76 02/03/23 16:10 Pulse Ox 99 02/03/23 16:10 Oxygen Delivery Method Room Air 02/03/23 16:10 BMI result Body Mass Index 21.1 Tobacco/Smoking Status: Tobacco use Status Tobacco use date assessed 08/12/22 02/03/23 16:18 Patient Tobacco Use Status Former Tobacco user 02/03/23 16:18 Tobacco use type Cigarette 02/03/23 16:18 e-Cigarette/Vaping Use Never Used 02/03/23 16:18 PHQ-9: PHQ-9 Score PHQ-9: Total score 3 02/03/23 16:47 Thrive Assessment: Date of Thrive Assessment Date Thrive assessed 04/19/21 02/03/23 16:18 Const Other: General Appearance: no apparent distress, pleasant. Heart: RRR, no murmurs, clicks or rubs, no gallops. Lungs: clear to auscultation. Extremities: no edema. Skin: dermatitis on face and feet Neurologic Exam: alert and oriented x3, gait normal, Psych: Normal affect, mildly disorganized thoughts Assessment and Plan Assessment & Plan (1) Skin infection: Code(s): L08.9 - Local infection of the skin and subcutaneous tissue, unspecified Plan: Resolved (2) Rash of both feet: Code(s): R21 - Rash and other nonspecific skin eruption Plan: Dermatitis Will give her a combo cream (3) Constipation: Code(s): K59.00 - Constipation, unspecified Plan: Trial MiraLax Hydrate well (4) Anxiety: Code(s): F41.9 - Anxiety disorder, unspecified Plan: Ongoing anxiety She has lorazepam and clonidine May be exacerbated by hypothyroidism - checking labs (5) Hypothyroidism: Code(s): E03.9 - Hypothyroidism, unspecified Plan: Checking labs Orders: Orders Comprehensive [place]. Panel Fast Today Z00.00 - Encounter for general adult medical examination without abnormal findings Lipid Panel Today Z00.00 - Encounter for general adult medical examination without abnormal findings Triiodothyronine T3 Total Today E03.9 - Hypothyroidism, unspecified Thyroid Stimulating Hormone Today E03.9 - Hypothyroidism, unspecified Free T4 (Free Thyroxine) Today E03.9 - Hypothyroidism, unspecified Vitamin B12 and Folate Today E53.8 - Deficiency of other specified B group vitamins Erythrocyte Sedimentation Rate Today R21 - Rash and other nonspecific skin eruption CRP High Sensitivity Today R21 - Rash and other nonspecific skin eruption Medications: New clotrimazole-betamethasone 1-0.05 % 1 appl topical BID 2 weeks 60 mL 1RF polyethylene glycol 3350 (Miralax) 17 grams PO DAILY 14 days 14 ea 1RF Coding Level of Care Code Est Pt Level 4 (30342) Diagnoses Skin infection L08.9 Rash of both feet R21 Constipation K59.00 Anxiety F41.9 Hypothyroidism E03.9
== END 2023-02-03 17:12 | disposition home or self-care (01) ==
PROVIDERS: PCP Family Medicine; Visit Provider Family Medicine
DX: E03.9 Hypothyroidism, unspecified (principal); F41.9 Anxiety disorder, unspecified; L08.9 Local infection of the skin and subcutaneous tissue, unspecified; R21 Rash and other nonspecific skin eruption; K59.00 Constipation, unspecified
CPT/HCPCS: 99214

== ENCOUNTER 2023-03-16 11:37 | Outpatient (AMB) | payer MEDICARE, MEDICAID, SELFPAY ==
[2023-03-16 11:49] VITALS: BP 128/74; PULSE 94; O2SAT 98; BMI 20.7
--- NOTE | 2023-03-16 11:49 | MHC.PC.OV ---
Vital Signs 03/16/23 11:49 Height 5 ft 3 in Weight 117 lb 2 oz BMI 20.7 BP 128/74 Blood Pressure Location Lt brachial Position Sitting Pulse 94 Pulse Source Pulse Oximeter Pulse Oximetry (%) 98 Oxygen Delivery Method Room Air Intake Visit Reasons: f/u labs and constipation Intake Note: Patient is here to follow up on labs and constipation. Allergies Penicillins [PENICILLINS] Allergy (Unknown, Verified 03/16/23 11:55) UNKNOWN-SICK DAYS LATER Sulfa (Sulfonamide Antibiotics) [SULFA (SULFONAMIDE ANTIBIOTICS)] Allergy (Unknown, Verified 03/16/23 11:55) UNKNOWN- SICK DAYS LATER, hives acetaminophen [ACETAMINOPHEN] Adverse Reaction (Severe, Verified 03/16/23 11:55) BAD EFFECTS Medication List - Last Reconciled 03/16/23 by Manjit Louise MD clonidine HCl 0.3 mg PO TID clotrimazole-betamethasone 1-0.05 % 1 appl topical BID 2 weeks dextroamphetamine-amphetamine 20 mg PO hydrocortisone 1% 1 appl topical BID PRN 30 days lorazepam mg PO polyethylene glycol 3350 (Miralax) 17 grams PO DAILY 14 days verapamil ER 360 mg PO DAILY Tobacco use date assessed: 03/16/23 Fall risk assessment: No Falls in past year Last assessed Fall Risk: 03/16/23 Dental Screening Dental Screen Date: 03/16/23 Did you have a dental visit in the last 12 months?: No Did you have a dental problem in the last 6 months where you did not have access to dental care?: No Was dental information given to patient?: Patient declined HPI f/u labs and constipation HPI Details 72 y/o female presents to f/u labs and constipation. No recent labs to review. Pt reports significant anxiety. She is not able to sleep well. She reports she has been on Adderall for a number of years. Pt reports ever since her COVID infection she had lost her sense of smell. She notes she had been unable to smell mold which may be contributing to her allergies. [facility] Medical History PFO (patent foramen ovale) Pulmonary nodule 1 cm or greater in diameter Surgical History History of wisdom tooth extraction Family History Father No problems noted. Mother No problems noted. Social History Housing: House (With Son) Alcohol intake: current Alcohol intake frequency: holidays/special occasions only Patient Tobacco Use Status: Former Tobacco user Quit Date: 33 years ago Tobacco use type: Cigarette Cigarettes Per Day: 20 Years Smoked: 13 Packs per year/per ci.00 e-Cigarette/Vaping Use: Never Used service: No Current occupational status: retired Cognitive needs: No Hearing needs: No Vision needs: No Questionnaire Thrive Questionnaire Date Thrive assessed: 04/19/21 JASMINE-7 AMB Questionnaire JASMINE-7 Date JASMINE - 7 assessed: 08/12/22 Source: Developed by Drs. Castro Healy, Crys Luna, Salas Pressley and colleagues, with an educational cleo from [employer]. Review of Systems Const Denies chills, Denies fatigue, Denies fever(s), Denies headache(s) and Denies weakness ENT Denies dizziness and Denies headache(s) Card Denies chest pain, Denies lightheadedness, Denies dyspnea and Denies other (Palpitations) Resp Denies cough, Denies dyspnea, Denies wheezing and Denies other ( shortness of breath) Musc Denies numbness and Denies tingling Neuro Denies dizziness, Denies headache(s), Denies numbness, Denies tingling, Denies paresthesias and Denies weakness Psych Reports anxiety and Denies depression Endo Denies fatigue Aller/Immun Denies wheezing Physical exam (Primary Care) Vital Signs: Last Vital Signs Pulse 94 03/16/23 11:49 BP 128/74 03/16/23 11:49 Pulse Ox 98 03/16/23 11:49 Oxygen Delivery Method Room Air 03/16/23 11:49 BMI result Body Mass Index 20.7 Tobacco/Smoking Status: Tobacco use Status Tobacco use date assessed 03/16/23 03/16/23 12:00 Patient Tobacco Use Status Former Tobacco user 03/16/23 12:00 Tobacco use type Cigarette 03/16/23 12:00 e-Cigarette/Vaping Use Never Used 03/16/23 12:00 Thrive Assessment: Date of Thrive Assessment Date Thrive assessed 04/19/21 03/16/23 12:00 Const General: no acute distress and well developed Nutritional Appearance: well nourished Orientation/consciousness: patient oriented x3 HENMT Head: Yes normocephalic and Yes atraumatic Eyes General: appearance normal, both eyes and all related structures Pupils: Equal, round and reactive pupils present EOM: EOMs intact bilaterally Resp Effort & Inspection: normal respiratory effort Auscultation: clear to auscultation bilaterally Cardio Rate: regular rate Rhythm: regular rhythm Heart sounds: S1 normal heart sound present, S2 normal heart sound present, no gallops, no murmurs and no rubs Neuro General: patient oriented x3 and gait normal Cranial nerves: Yes Equal, round and reactive pupils present Psych Affect: Anxious affect present Assessment and Plan Assessment & Plan (1) Anxiety: Code(s): F41.9 - Anxiety disorder, unspecified Plan: Ongoing significant anxiety and is followed by her therapist and psychiatric medication provider Encouraged her to follow-up with them again (2) Allergies: Code(s): T78.40XA - Allergy, unspecified, initial encounter Plan: Possible allergic dermatitis Patient is concerned regarding allergies and immune disorders Check labs (3) Constipation: Code(s): K59.00 - Constipation, unspecified Plan: Recent antibiotic use This should resolve spontaneously (4) Loss 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 Panel Today T78.40XA - Allergy, unspecified, initial encounter Triiodothyronine T3 Total Today E03.9 - Hypothyroidism, unspecified Free T4 (Free Thyroxine) Today E03.9 - Hypothyroidism, unspecified Complete Blood Count Auto Diff Today T78.40XA - Allergy, unspecified, initial encounter, Z00.00 - Encounter for general adult medical examination without abnormal findings Coding Level of Care Code Est Pt Level 4 (18948) Diagnoses Anxiety F41.9 Allergies T78.40XA Constipation K59.00 Loss of smell R43.0 Hypothyroidism E03.9
== END 2023-03-16 12:47 | disposition home or self-care (01) ==
PROVIDERS: PCP Family Medicine; Visit Provider Family Medicine
DX: E03.9 Hypothyroidism, unspecified (principal); F41.9 Anxiety disorder, unspecified; T78.40XA Allergy, unspecified, initial encounter; K59.00 Constipation, unspecified; R43.0 Anosmia
CPT/HCPCS: 99214

== ENCOUNTER 2023-08-27 13:39 | Outpatient (AMB) | payer MEDICARE, SELFPAY ==
[2023-08-27 13:44] VITALS: BP 140/100; PULSE 84; TEMP 36.9; O2SAT 97
--- NOTE | 2023-08-27 13:44 | AM.OFFWIN_ITS ---
Intake Vital Signs 08/27/23 13:44 Height 5 ft 3 in BP 140/100 H Blood Pressure Location Lt brachial Position Sitting Pulse 84 Pulse Source Pulse Oximeter Temp 98.4 F Temp Source Temporal Artery Scan Pulse Oximetry (%) 97 Oxygen Delivery Method Room Air Intake Visit Reasons: EP RT black eye Intake Note: pt is here today for black eye started 3 days ago Patient Tobacco Use Status: Former Tobacco user Quit Date: 33 years ago Allergies Penicillins [PENICILLINS] Allergy (Unknown, Verified 08/27/23 13:44) UNKNOWN-SICK DAYS LATER Sulfa (Sulfonamide Antibiotics) [SULFA (SULFONAMIDE ANTIBIOTICS)] Allergy (Unknown, Verified 08/27/23 13:44) UNKNOWN- SICK DAYS LATER, hives acetaminophen [ACETAMINOPHEN] Adverse Reaction (Severe, Verified 08/27/23 13:44) BAD EFFECTS Do you need a note to return to daycare/school/sports/work: No HPI HPI Comments History of Present Illness Details 73 y/o female patient who presents to [facility] in clinic with c/o right eye black bruising. Reports noticing 3 days ago. Denies injury or trauma to the head/face. Denies taking any blood thinners. Denies vision changes. [facility] Medical History PFO (patent foramen ovale) Pulmonary nodule 1 cm or greater in diameter Surgical History History of wisdom tooth extraction Family History Father No problems noted. Mother No problems noted. Social History Housing: House (With Son) Alcohol intake: current Alcohol intake frequency: holidays/special occasions only Patient Tobacco Use Status: Former Tobacco user Quit Date: 33 years ago Tobacco use type: Cigarette Cigarettes Per Day: 20 Years Smoked: 13 e-Cigarette/Vaping Use: Never Used service: No Current occupational status: retired Cognitive needs: No Hearing needs: No Vision needs: No Physical Exam Vital Signs: Last Vital Signs Temp 98.4 F 08/27/23 13:44 Pulse 84 08/27/23 13:44 BP 140/100 H 08/27/23 13:44 Pulse Ox 97 08/27/23 13:44 Oxygen Delivery Method Room Air 08/27/23 13:44 Const Orientation/consciousness: patient oriented x3 HEENT Head: Yes No palpable skull fracture present, Yes hematoma (Right orbital sinus cavity/right eye socket), Yes raccoon eyes (right eye socket ), No Temporal artery tenderness present and Yes periorbital ecchymosis Ears: external ears normal and TM's normal bilaterally General nose exam: Normal external nose present, Normal nares present and Abnormal mucous membranes and turbinates present erythematous Face and sinus: Yes abrasion (right orbital socket), Yes ecchymosis and Yes sinus tenderness (Orbital sinus tenderness) Mouth: moist mucous membranes Throat: Yes posterior oropharynx normal Skin General skin exam: ecchymosis (right orbital socket) and jaundice (mild jaundice right orbital socket) Neuro General: patient oriented x3, gait normal, moves all extremities and CN's II-XI intact bilaterally Cranial nerves: Yes Facial sensation intact/muscles of mastication intact and Yes Bilaterally intact EOM present Assessment & Plan Assessment & Plan (1) Periorbital ecchymosis: Code(s): S00.10XA - Contusion of unspecified eyelid and periocular area, initial encounter Qualifiers: Encounter type: initial encounter Laterality: right Qualified Code(s): S00.11XA - Contusion of right eyelid and periocular area, initial encounter Plan: - ?? Orbital fx vs hematoma. - Advised to go to Emergency room for further Tx and testing. - Etiology unclear to me. I suspect Trauma/injury Coding Level of Care Code Est Pt Level 3 (23798) Diagnoses Periorbital ecchymosis of right eye, initial encounter S00.11XA Encounter type: initial encounter Laterality: right Time Spent (min) 15
== END 2023-08-27 15:55 | disposition home or self-care (01) ==
PROVIDERS: PCP Family Medicine; Visit Provider Nurse Practitioner Family
DX: S00.11XA Contusion of right eyelid and periocular area, initial encounter (principal)
CPT/HCPCS: 99213

== ENCOUNTER 2023-08-27 14:26 | Outpatient (REF) | payer MEDICARE, SELFPAY ==
[2023-08-27 16:34] LABS: MANUAL DIFF FLAG NO
[2023-08-27 16:39] LABS: Basophils Percent Auto 0.5 % (0-2); Eosinophils Absolute Auto 0.1 X10*3/uL (0.0-0.4); Eosinophils Percent Auto 1.9 % (0-4); Hematocrit 37.5 % (37.0-47.0); Hemoglobin 12.8 g/dl (12.0-16.0); Imm Gran Abs Auto 0.01 X10*3/uL (0.00-0.03); Imm Gran Pct Auto 0.2 % (0.0-0.4); Lymphocytes Absolute Auto 1.6 X10*3/uL (1.2-4.9); Lymphocytes Percent Auto 27.6 % (20-40); Mean Corpuscular HGB Conc 34.1 g/dl (31.0-35.0); Mean Corpuscular Hemoglobin 30.5 pg (27.0-33.0); Mean Corpuscular Volume 89.5 fL (80.0-98.0); Mean Platelet Volume 10.8 fL (9.4-12.3); Monocytes Absolute Auto 0.5 X10*3/uL (0.1-1.2); Neutrophils Absolute Auto 3.6 x10*3/uL (2.0-8.3); Neutrophils Percent Auto 61.8 % (45-73); Platelet Count 233 X10*3/uL (160-400); Red Blood Count 4.19 X10*6/uL (4.20-5.50); Red Cell Distribution Width 12.2 % (11.0-16.0); White Blood Count 5.9 X10*3/uL (4.8-10.8)
[2023-08-27 17:07] LABS: Alanine Aminotransferase 10 U/L (0-31); Albumin Level 4.2 g/dL (3.5-5.0); Alkaline Phosphatase 90 U/L (39-117); Anion Gap 12 (12-20); Aspartate Amino Transferase 18 U/L (5-31); Bilirubin Total 0.3 mg/dL (0.0-1.0); Blood Urea Nitrogen 23 mg/dL (9-16); Calcium 9.4 mg/dL (8.4-10.2); Carbon Dioxide 26 mmol/L (22-29); Chloride 104 mmol/L (96-108); Cholesterol 175 mg/dL (<200); Estimated Glomerular Filt Rate > 60; Glucose Fasting 91 mg/dL (60-99); HDL Cholesterol 62 mg/dL (>40); LDL Cholesterol Calculated 98 mg/dL (<100); Potassium 3.1 mmol/L (3.3-5.1); Sodium 139 mmol/L (135-145); Total Protein 7.7 g/dL (6.5-8.0); Triglycerides 77 mg/dL (<150)
[2023-08-27 17:13] LABS: Erythrocyte Sedimentation Rate 8 MM/HR (0-20)
[2023-08-27 17:22] LABS: Free T4 (Free Thyroxine) 0.84 ng/dL (0.71-1.85); Thyroid Stimulating Hormone 4.59 uIU/mL (0.32-4.0)
[2023-08-27 17:31] LABS: Folate 6.3 ng/mL (> or = 4.0); Vitamin B12 297 pg/mL (200-900)
[2023-08-28 15:34] LABS: CRP High Sensitivity 1.3 mg/L
[2023-08-28 15:59] LABS: Triiodothyronine T3 Total 149 ng/dL (76-181)
== END 2023-08-27 14:27 | disposition home or self-care (01) ==
LOC: HO.HMGCLDS 14:26
PROVIDERS: PCP Family Medicine; Visit Provider Family Medicine
DX: Z00.00 Encounter for general adult medical examination without abnormal findings (principal); E03.9 Hypothyroidism, unspecified; E53.8 Deficiency of other specified B group vitamins; T78.40XA Allergy, unspecified, initial encounter; R21 Rash and other nonspecific skin eruption
CPT/HCPCS: 36415; 80053; 80061; 82607; 82746; 84439; 84443; 84480; 85025; 85652; 86141

== ENCOUNTER 2023-10-12 14:25 | Outpatient (AMB) | payer MEDICARE, SELFPAY ==
[2023-10-12 14:32] VITALS: BP 140/80; PULSE 96; RESP 12; O2SAT 99; BMI 20.6
--- NOTE | 2023-10-12 14:32 | A.OFFPC_ITS ---
Vital Signs 10/12/23 14:32 Height 5 ft 3 in Weight 116 lb 4 oz BMI 20.6 BP 140/80 H Blood Pressure Location Rt brachial Position Sitting Respiration 12 Pulse 96 Pulse Source Pulse Oximeter Pulse Oximetry (%) 99 Oxygen Delivery Method Room Air Intake Visit Reasons: ? MRSA/ Medication follow up Intake Note: Patient is here for a medication concern and a rash/boil concern. Patient reports she has been taking Adderall 20mg 3 times per day. Patient reports she is also taking lorazepam 1mg 3 times per day. Patient reports she missed an appointment with prescribing provider and she is now on a waiting list. Biological Chemist Required: No Accompanied by: Daughter Allergies Penicillins [PENICILLINS] Allergy (Unknown, Verified 10/12/23 14:39) UNKNOWN-SICK DAYS LATER Sulfa (Sulfonamide Antibiotics) [SULFA (SULFONAMIDE ANTIBIOTICS)] Allergy (Unknown, Verified 10/12/23 14:39) UNKNOWN- SICK DAYS LATER, hives acetaminophen [ACETAMINOPHEN] Adverse Reaction (Severe, Verified 10/12/23 14:39) BAD EFFECTS Medication List - Last Reconciled 10/12/23 by Manjit Louise MD clonidine HCl 0.3 mg PO TID dextroamphetamine-amphetamine 20 mg 20 mg PO TID doxycycline hyclate 100 mg PO BID 10 days hydrocortisone 1% 1 appl topical BID PRN 30 days lorazepam 1 mg PO TID verapamil ER 360 mg PO DAILY Tobacco use date assessed: 10/12/23 HPI ? MRSA/ Medication follow up HPI Details 73 y/o female presents today to f/u meds . Also has concerns about a rash/? boils. Pt has concerns about constipation. [facility] Medical History PFO (patent foramen ovale) Pulmonary nodule 1 cm or greater in diameter Surgical History History of wisdom tooth extraction Family History Father No problems noted. Mother No problems noted. Social History Housing: House (With Son) Alcohol intake: current Alcohol intake frequency: holidays/special occasions only Patient Tobacco Use Status: Former Tobacco user Quit Date: 33 years ago Tobacco use type: Cigarette Cigarettes Per Day: 20 Years Smoked: 13 e-Cigarette/Vaping Use: Never Used service: No Current occupational status: retired Cognitive needs: No Hearing needs: No Vision needs: No Questionnaire Thrive Questionnaire Date Thrive assessed: 04/19/21 JASMINE-7 AMB Questionnaire JASMINE-7 Date JASMINE - 7 assessed: 08/12/22 Source: Developed by Drs. Castro Healy, Crys Luna, Salas Pressley and colleagues, with an educational cleo from [employer]. Review of Systems Const Denies chills, Denies fatigue, Denies fever(s), Denies headache(s) and Denies weakness ENT Denies dizziness and Denies headache(s) Card Denies dyspnea Resp Denies cough, Denies dyspnea, Denies wheezing and Denies other (shortness of breath) GI Reports constipation Musc Denies numbness and Denies tingling Skin/Breast Reports furuncle and Reports rash Neuro Denies dizziness, Denies headache(s), Denies numbness, Denies tingling and Denies weakness Psych Denies anxiety and Denies depression Endo Denies fatigue Aller/Immun Denies wheezing Physical exam (Primary Care) Vital Signs: Last Vital Signs Pulse 96 10/12/23 14:32 Resp 12 10/12/23 14:32 BP 140/80 H 10/12/23 14:32 Pulse Ox 99 10/12/23 14:32 Oxygen Delivery Method Room Air 10/12/23 14:32 BMI result Body Mass Index 20.6 Tobacco/Smoking Status: Tobacco use Status Tobacco use date assessed 10/12/23 10/12/23 14:45 Patient Tobacco Use Status Former Tobacco user 10/12/23 14:40 Tobacco use type Cigarette 10/12/23 14:40 e-Cigarette/Vaping Use Never Used 10/12/23 14:40 Thrive Assessment: Date of Thrive Assessment Date Thrive assessed 04/19/21 10/12/23 14:40 Const General: well developed; No acute distress Nutritional Appearance: well nourished Orientation/consciousness: patient oriented x3 HENMT Head: Yes normocephalic and Yes atraumatic Eyes General: appearance normal, both eyes and all related structures Pupils: Equal, round and reactive pupils present EOM: EOMs intact bilaterally Resp Effort & Inspection: normal respiratory effort Neuro General: patient oriented x3 and gait normal Cranial nerves: Yes Equal, round and reactive pupils present Psych Affect: normal affect Assessment and Plan Assessment & Plan (1) Boils: Code(s): L02.92 - Furuncle, unspecified Plan: Boil?at?right?cheek?and?folliculitis. Possible?MRSA.??Patient?is?allergic?to?sulfa Will?use?doxycycline Warm?compresses Call?or?return?to?office?if?not?improving?or?worsening?at?any?time.??Or?call?fo r?any?new,?concerning?symptoms. (2) Hypothyroidism: Code(s): E03.9 - Hypothyroidism, unspecified Plan: Long?history?of?hypothyroidism,?untreated Check?labs (3) ADHD (attention deficit hyperactivity disorder), inattentive type: Code(s): F90.0 - Attention-deficit hyperactivity disorder, predominantly inattentive type Plan: Patient?had?provider?and?has?lost?access?to?provider?and?is?on?a?waiting?list. Will?provide?Adderall?20?mg?daily Patient?requests?more?but?I?declined?that. (4) Anxiety: Code(s): F41.9 - Anxiety disorder, unspecified Plan: Patient?is?on?lorazepam?1?mg?t.i.d.?which?I?continued. Advised?caution Will?continue?to?follow Orders: Orders Thyroid Stimulating Hormone Today E03.9 - Hypothyroidism, unspecified Triiodothyronine T3 Total Today E03.9 - Hypothyroidism, unspecified CRP High Sensitivity Today E03.9 - Hypothyroidism, unspecified Thyroid Peroxidase Antibodies Today E03.9 - Hypothyroidism, unspecified Comprehensive [place]. Panel Fast Today Z00.00 - Encounter for general adult medical examination without abnormal findings Complete Blood Count Auto Diff Today Z00.00 - Encounter for general adult medical examination without abnormal findings Lipid Panel Today Z00.00 - Encounter for general adult medical examination without abnormal findings Free T4 (Free Thyroxine) Today E03.9 - Hypothyroidism, unspecified Erythrocyte Sedimentation Rate Today E03.9 - Hypothyroidism, unspecified Medications: New doxycycline hyclate 100 mg PO BID 20 tabs 0RF 10 days dextroamphetamine-amphetamine 20 mg (Adderall) Partial Fill upon patient request. 20 mg PO DAILY 30 tabs 0RF 30 days doxycycline hyclate 100 mg PO BID 20 tabs 0RF 10 days Changed From lorazepam 1 mg PO TID To lorazepam [employer] Verified 1 mg PO TID 90 tabs 0RF 30 days Discontinued dextroamphetamine-amphetamine 20 mg [employer] verified Discontinued Reason: Doctor's Order 20 mg PO TID Coding Level of Care Code Est Pt Level 4 (12313) Diagnoses Boils L02.92 Hypothyroidism E03.9 ADHD (attention deficit hyperactivity disorder), inattentive type F90.0 Anxiety F41.9
== END 2023-10-12 15:54 | disposition home or self-care (01) ==
PROVIDERS: PCP Family Medicine; Visit Provider Family Medicine
DX: E03.9 Hypothyroidism, unspecified (principal); L02.92 Furuncle, unspecified; F90.0 Attention-deficit hyperactivity disorder, predominantly inattentive type; F41.9 Anxiety disorder, unspecified
CPT/HCPCS: 99214

== ENCOUNTER 2023-11-02 14:55 | Outpatient (AMB) | payer MEDICARE, SELFPAY ==
[2023-11-02 14:57] VITALS: BP 140/76; PULSE 85; O2SAT 97; BMI 20.4
--- NOTE | 2023-11-02 14:57 | A.OFFPC_ITS ---
Vital Signs 11/02/23 14:57 Height 5 ft 3 in Weight 115 lb 4 oz BMI 20.4 BP 140/76 H Blood Pressure Location Lt brachial Position Sitting Pulse 85 Pulse Source Pulse Oximeter Pulse Oximetry (%) 97 Oxygen Delivery Method Room Air Intake Visit Reasons: f/u chronic conditions, labs Intake Note: Patient is here to follow up on chronic conditions. Allergies Penicillins [PENICILLINS] Allergy (Unknown, Verified 11/02/23 15:01) UNKNOWN-SICK DAYS LATER Sulfa (Sulfonamide Antibiotics) [SULFA (SULFONAMIDE ANTIBIOTICS)] Allergy (Unknown, Verified 11/02/23 15:01) UNKNOWN- SICK DAYS LATER, hives acetaminophen [ACETAMINOPHEN] Adverse Reaction (Severe, Verified 11/02/23 15:01) BAD EFFECTS Tobacco use date assessed: 11/02/23 Dental Screening Dental Screen Date: 11/02/23 Did you have a dental visit in the last 12 months?: No Did you have a dental problem in the last 6 months where you did not have access to dental care?: No Was dental information given to patient?: Patient declined HPI f/u chronic conditions, labs HPI Details 73 y/o female presents to f/u chronic co nditions. Had started her on doxycycline last office visit for a skin infection which may be MRSA. No recent labs to review. Infection improving. Pt has complaints of dry skin - particularly her scalp and inside her ears. COUNT INCLUDES THE [facility] Medical History Pulmonary nodule 1 cm or greater in diameter PFO (patent foramen ovale) Surgical History History of wisdom tooth extraction Family History Father No problems noted. Mother No problems noted. Social History Housing: House (With Son) Alcohol intake: current Alcohol intake frequency: holidays/special occasions only Patient Tobacco Use Status: Former Tobacco user Quit Date: 33 years ago Tobacco use type: Cigarette Cigarettes Per Day: 20 Years Smoked: 13 Packs per year/per ci.00 e-Cigarette/Vaping Use: Never Used service: No Current occupational status: retired Cognitive needs: No Hearing needs: No Vision needs: No Questionnaire Thrive Questionnaire Date Thrive assessed: 04/19/21 JASMINE-7 AMB Questionnaire JASMINE-7 Date JASMINE - 7 assessed: 08/12/22 Source: Developed by Drs. Castro Healy, Crys Luna, Salas Pressley and colleagues, with an educational cleo from [employer]. Review of Systems Const Denies chills, Denies fatigue, Denies fever(s), Denies headache(s) and Denies weakness ENT Denies dizziness and Denies headache(s) Card Denies dyspnea Resp Denies cough, Denies dyspnea, Denies wheezing and Denies other (shortness of breath) Musc Denies numbness and Denies tingling Neuro Denies dizziness, Denies headache(s), Denies numbness, Denies tingling and Denies weakness Psych Denies anxiety and Denies depression Endo Denies fatigue Aller/Immun Denies wheezing Physical exam (Primary Care) Vital Signs: Last Vital Signs Pulse 85 11/02/23 14:57 BP 140/76 H 11/02/23 14:57 Pulse Ox 97 11/02/23 14:57 Oxygen Delivery Method Room Air 11/02/23 14:57 BMI result Body Mass Index 20.4 Tobacco/Smoking Status: Tobacco use Status Tobacco use date assessed 11/02/23 11/02/23 15:02 Patient Tobacco Use Status Former Tobacco user 11/02/23 14:59 Tobacco use type Cigarette 11/02/23 14:59 e-Cigarette/Vaping Use Never Used 11/02/23 14:59 Thrive Assessment: Date of Thrive Assessment Date Thrive assessed 04/19/21 11/02/23 14:59 Const General: well developed; No acute distress Nutritional Appearance: well nourished Orientation/consciousness: patient oriented x3 HENMT Head: Yes normocephalic and Yes atraumatic Eyes General: appearance normal, both eyes and all related structures Pupils: Equal, round and reactive pupils present EOM: EOMs intact bilaterally Resp Effort & Inspection: normal respiratory effort Neuro General: patient oriented x3 and gait normal Cranial nerves: Yes Equal, round and reactive pupils present Psych Affect: normal affect Assessment and Plan Assessment & Plan (1) Boils: Code(s): L02.92 - Furuncle, unspecified Plan: Much?improved?and?nearly?resolved Still?has?a?few?lesions?in?preauricular?region?bilaterally Swelling?is?nearly?resolved?as?well Will?continue?doxycycline?for?another?course?to?ensure?infection?is?resolved. (2) Dry skin: Code(s): L85.3 - Xerosis cutis Plan: Significant?dry?skin?and?I?still?suspect?that?this?is?la rgely?due?to?untreated?hypothyroidism She?subsequently?developed?boils?and?skin?infections?secondary?to?breaks?in?her? skin. Advised?she?follow-up?with?her?prospecting observer Plan Had?asked?patient?to?get?her?labs?drawn?but?she?has?not?done?this?yet.??She?will ?do?this?prior?to?her?next?visit Medications: Refilled doxycycline hyclate 100 mg PO BID 20 tabs 0RF 10 days Coding Level of Care Code Est Pt Level 3 (05416) Diagnoses Boils L02.92 Dry skin L85.3
== END 2023-11-02 15:24 | disposition home or self-care (01) ==
PROVIDERS: PCP Family Medicine; Visit Provider Family Medicine
DX: L02.92 Furuncle, unspecified (principal); L85.3 Xerosis cutis
CPT/HCPCS: 99213

== ENCOUNTER 2023-11-17 12:23 | Emergency (ER) | payer MEDICARE, SELFPAY ==
--- NOTE | ~2023-11-17 | XR_ITS ---
EXAMINATION: XR SHOULDER, LEFT XR HUMERUS LEFT CLINICAL INFORMATION: Pain status post fall COMPARISON: None available. TECHNIQUE: 4 views of the left shoulder 3 views of the left humerus FINDINGS: There is a comminuted mildly displaced fracture involving the neck of the left humerus with mild lateral displacement of the proximal fracture fragment. Rest of the left humerus appears intact. The imaged portions of the left elbow appear unremarkable. The acromioclavicular alignment is anatomic with mild degenerative changes. No acute soft tissue abnormality. No abnormal soft tissue calcifications. XR/XR shoulder LT min 2V IMPRESSION: Comminuted mildly displaced fracture involving the neck of the left humerus with mild lateral displacement of the proximal fracture fragment.
--- NOTE | ~2023-11-17 | XR_ITS ---
EXAMINATION: XR SHOULDER, LEFT XR HUMERUS LEFT CLINICAL INFORMATION: Pain status post fall COMPARISON: None available. TECHNIQUE: 4 views of the left shoulder 3 views of the left humerus FINDINGS: There is a comminuted mildly displaced fracture involving the neck of the left humerus with mild lateral displacement of the proximal fracture fragment. Rest of the left humerus appears intact. The imaged portions of the left elbow appear unremarkable. The acromioclavicular alignment is anatomic with mild degenerative changes. No acute soft tissue abnormality. No abnormal soft tissue calcifications. XR/XR humerus LT IMPRESSION: Comminuted mildly displaced fracture involving the neck of the left humerus with mild lateral displacement of the proximal fracture fragment.
--- NOTE | ~2023-11-17 | CT_ITS ---
STUDY: Unenhanced CT of the head and cervical INDICATION: Fall COMPARISON: None TECHNIQUE: Continuous helical imaging obtained through the head and cervical spine without IV contrast. Reconstructed images coronal and sagittal planes. This CT examination was performed using dose optimization techniques as appropriate, variously including the following: *Automated exposure control *Adjustment of mA and/or kV according to patient size (this includes techniques or standardized protocols for targeted exams where dose is matched to indication/reason for exam; i.e. extremities or head) *Use of iterative reconstruction technique TOTAL EXAM DLP: 656.8, 209.85 mGy-cm head and cervical spine respectively FINDINGS: HEAD: Mild atrophy, periventricular white matter changes, vascular and basal ganglia calcifications. No intracranial hemorrhage, extra-axial fluid collections, or cranial fractures seen. Small left posterior parietal hematoma. No evolving infarct, mass lesion, mass effect or midline shift seen. Intraorbital structures are unremarkable. Bilateral maxillary mucosal thickening identified, underlying polyps or retention cyst not excluded. Remaining sinuses and mastoids are clear. CERVICAL SPINE: Cervical lordotic straightening. Vertebral body height losses of C4, C5 and C6 likely degenerative. Degenerative spurring and disc space narrowing C4-C7. Hypertrophic facet changes. Bilateral neuroforaminal narrowings. No spinal canal narrowings. Minimal anterolisthesis C3 on C4 and C6-C7 on T1. Sclerotically bordered lucency at the base of the odontoid with posterior bony discontinuity, likely subchondral cyst. Posterior longitudinal ligament at this level is slightly thickened in appearance. Nonspecific cervical lymph nodes. Vascular calcifications. Soft tissues are unremarkable. Thyroid within normal limits. Bilateral pleural-parenchymal thickening, right greater than left. CT/CT cervical spine wo IV con IMPRESSION: No acute posttraumatic bony pathology cervical spine. C2/odontoid base lucency with cortical destruction posteriorly, question subchondral cyst. This may place the patient at increased risk for cervical injury after relatively minor trauma, and there is question of associated mild posterior longitudinal ligament thickening. MRI recommended for more definitive characterization. No acute intracranial pathology. Chronic small vessel ischemia and volume loss.
[2023-11-17 12:38] VITALS: BP 186/89; PULSE 86; RESP 16; TEMP 36.5; O2SAT 100; BMI 20.9
--- NOTE | 2023-11-17 12:39 | ED_ITS ---
HPI - Fall General Chief Complaint: Fall Stated Complaint: Fall in shower/Head inj L shoulder pain Time Seen by Provider: 11/17/23 13:21 Source: patient Mode of arrival: EMS History of Present Illness HPI Narrative: 73-year-old female with history of hypothyroidism, ADHD and anxiety presents after a fall at home. Patient was in the shower, she slipped and fell, landing on her left side. Patient primarily complains of left shoulder pain. She is unable to range the shoulder completely. Patient also sustained laceration of the left brow, her tetanus is not up-to-date. Patient does not use blood thinners, no LOC. Related Data Previous Rx's ?Medication ?Instructions ?Recorded hydrocortisone 1 % lotion 1 appl topical BID PRN skin 10/19/20 irritation 30 days #120 mL verapamil 360 mg 24 hr 360 mg PO DAILY #90 caps 08/24/23 capsule,extended release dextroamphetamine-amphetamine 20 20 mg PO DAILY 30 days #30 tabs 10/12/23 mg tablet (Adderall) lorazepam 1 mg tablet 1 mg PO TID 30 days #90 tabs 10/12/23 clonidine HCl 0.3 mg tablet 0.3 mg PO TID #270 tabs 10/19/23 doxycycline hyclate 100 mg tablet 100 mg PO BID 10 days #20 tabs 11/02/23 Allergies Allergy/AdvReac Type Severity Reaction Status Date / Time Penicillins [PENICILLINS] Allergy Unknown UNKNOWN-SICK Verified 11/17/23 12:41 DAYS LATER Sulfa (Sulfonamide Allergy Unknown UNKNOWN- Verified 11/17/23 12:41 Antibiotics) SICK DAYS [SULFA (SULFONAMIDE LATER, ANTIBIOTICS)] hives acetaminophen [ACETAMINOPHEN] AdvReac Severe BAD EFFECTS Verified 11/17/23 12:41 Review of Systems Review of Systems: Yes all other systems are reviewed and are negative [facility] Past Medical History Medical History Pulmonary nodule 1 cm or greater in diameter PFO (patent foramen ovale) Surgical History History of wisdom tooth extraction Family History Family History Father No problems noted. Mother No problems noted. Social History Social History Housing: House (With Son) Alcohol intake: current Alcohol intake frequency: holidays/special occasions only Patient Tobacco Use Status: Former Tobacco user Quit Date: 33 years ago Tobacco use type: Cigarette Cigarettes Per Day: 20 Years Smoked: 13 e-Cigarette/Vaping Use: Never Used Advance Directives: No Advance Directives Information Provided: Yes service: No Current occupational status: retired Cognitive needs: No Hearing needs: No Vision needs: No Physical Exam Vital Signs: Vital Signs: Last Vital Signs Temp 97.7 F 11/17/23 12:38 Pulse 86 11/17/23 12:38 Resp 16 11/17/23 12:38 BP 186/89 H 11/17/23 12:38 Pulse Ox 100 11/17/23 12:38 O2 Del Method Room Air 11/17/23 12:38 BMI result Body Mass Index 20.9 Const: Other: Alert, appears older than stated age, cachectic 3-1/2 cm superficial laceration inferior to the left brow, not actively bleeding, developing left periorbital ecchymosis Orientation/consciousness: patient oriented x3 Eyes: Pupils: Equal, round and reactive pupils present and Other pupil findings (No pain with extraocular eye movement) Neuro: General: patient oriented x3, no focal motor deficits and CN's II-XI intact bilaterally Cranial nerves: Yes Equal, round and reactive pupils present Extrem: Other: Strength 5/5 bilateral upper and lower extremities, with the exception of the left shoulder which she is unable to range, the shoulder is swollen, faint ecchymosis developing, patient is able to flex and extend from the left elbow. Course Course Course Narrative: This is an RME: Additional HPI, ROS, PE not included below will be deferred to primary provider. This is a 79-eeie-mhg-female, with a hx of HTN, who presents to the ER with complaints of fall. Pt states that she slipped while going into the shower. Pt states that she struck the left side of her head and left side of her body. Unsure if she lost consciousness, however daughter lives with her and immediately came into the bathroom to help her up. Laceration noted to the left side of her face. She is reporting left shoulder pain. Plan: CT head, neck, xr shoulder and humerus Consultations Consultation #1: Cordelia Pacheco PA-C from ortho service she is in agreement that the patient could follow up in the office place him in a sling. Time: 13:44 Medications Administered Discontinued Medications Generic Name Dose Route Start Last Admin Trade Name Jose A PRN Reason Stop Dose Admin Diphtheria/Tetanus/Acell Pertussis 0.5 ml 11/17/23 13:53 11/17/23 14:25 Diphth,Pertus(Acell),Tet Adult 0.5 Ml Syringe IM 11/17/23 13:54 0.5 ml .ONCE ONE Administration Procedures Laceration 3.5 cm laceration, superficial, no longer bleeding inferior to left brow: Site: face Side (If applicable): left Size (cm): 3.5 Description: linear Depth: simple, single layer Local Anesthetic: lidocaine 1% and with epi Amount of anesthesia used (mL): 2 Skin layer closed with: vicryl Size (cm): 5-0 Number of sutures: 8 Medical Decision Making Medical Decision Making [facility] Narrative: 73-year-old female with history of hypothyroidism, ADHD and anxiety presents after a fall at home. Patient was in the shower, she slipped and fell, landing on her left side. Patient primarily complains of left shoulder pain. She is unable to range the shoulder completely. Patient also sustained laceration of the left brow, her tetanus is not up-to-date. Patient does not use blood thinners, no LOC. Problem: Age, anxiety History: Per patient I have considered the following differential diagnoses: Acute intracranial hemorrhage, orbital fracture, laceration, shoulder fracture, dislocation Plan: The patient is assessment was initiated and [employer], scan of her head and x- ray of the shoulder were ordered. Looks as if she has an obvious proximal humeral fracture. We will place her in a sling she can follow up with ortho. To know I did reach out with [facility]. I am deferring labs at this time unless the patient has an injury that will require emergent surgical intervention. To know it is reassuring that the patient is not altered, she has no neuro deficits, does not complain of a headache, is not actually vomiting to suggest an intracranial hemorrhage. Patient says she has numerous adverse reactions from medications, she has an extensive allergy profile, she is declining pain medication at this time. I have independently reviewed the following tests: X-ray left shoulder:[facility] [address] [place] [address] XRay Report Signed Patient: Anahi Apodaca MR#: [id number] : 1950 Acct:[id number] Age/Sex: 73 / F ADM Date: 11/17/23 Loc: HO.ED Attending Dr: Ordering Physician: Ashley Rogers Date of Service: 11/17/23 Procedure(s): XR shoulder LT min 2V Accession Number(s): [id number] cc: Manjit Louise MD; Ashley Rogers~ EXAMINATION: XR SHOULDER, LEFT XR HUMERUS LEFT CLINICAL INFORMATION: Pain status post fall COMPARISON: None available. TECHNIQUE: 4 views of the left shoulder 3 views of the left humerus FINDINGS: There is a comminuted mildly displaced fracture involving the neck of the left humerus with mild lateral displacement of the proximal fracture fragment. Rest of the left humerus appears intact. The imaged portions of the left elbow appear unremarkable. The acromioclavicular alignment is anatomic with mild degenerative changes. No acute soft tissue abnormality. No abnormal soft tissue calcifications. XR/XR shoulder LT min 2V IMPRESSION: Comminuted mildly displaced fracture involving the neck of the left humerus with mild lateral displacement of the proximal fracture fragment. Discharge Plan Discharge Clinical Impression: Closed comminuted left humeral fracture Patient Disposition: Home, Self-Care Additional Instructions: You fractured her left humerus, at the juncture where creates the shoulder joint. You should wear the sling, this will help support the joint and help alleviate your pain. You should allow the arm out of the sling to flex and extend the elbow several times a day. You have chosen not to use pain medication given your extensive list of allergies and reactions to various medications. I provided you with a contact for our orthopedic service, you need to call today to make a follow-up appointment. The laceration you sustained required 8 sutures to repair, they will dissolve on their own. Your tetanus vaccine was updated today it is valid for 10 years. Prescriptions: No Action verapamil 360 mg capsule,ext rel. pellets 24 hr 360 mg PO DAILY Qty: 90 0RF clonidine HCl 0.3 mg tablet 0.3 mg PO TID Qty: 270 6RF hydrocortisone 1 % lotion 1 appl topical BID PRN (Reason: skin irritation) 30 Days Qty: 120 3RF dextroamphetamine-amphetamine [Adderall] 20 mg tablet 20 mg PO DAILY 30 Days Qty: 30 0RF Rx Instructions: Partial Fill upon patient request. lorazepam 1 mg tablet 1 mg PO TID 30 Days Qty: 90 0RF Rx Instructions: MassPat Verified doxycycline hyclate 100 mg tablet 100 mg PO BID 10 Days Qty: 20 0RF Referrals: [facility] [Provider Group] Print Language: [place] Islander
[2023-11-17] MEDS: Diphth,Pertus(ACell),Tet Adult 0.5 ML SYRINGE IM (14:25)
--- NOTE | 2023-11-17 15:20 | PC.NURSE ---
Pt brought in due to a fall out of the shower, pt has a small laceration on left eyebrow, pt has been splinted for left arm. Meds given per MAR, VSS, Pt resting quietly, no new orders
[2023-11-17] MEDS: Lidocaine HCl 1%/Epi 1:100,000 10 ML VIAL INFILTRATI (15:36)
[2023-11-17 16:29] VITALS: BP 186/89; PULSE 86; RESP 14; TEMP 36.5; O2SAT 100
== END 2023-11-17 16:00 | disposition home or self-care (01) ==
PROVIDERS: Emergency Provider Emergency Medicine; PCP Family Medicine
DX: S42.212A Unspecified displaced fracture of surgical neck of left humerus, initial encounter for closed fracture (principal); S01.112A Laceration without foreign body of left eyelid and periocular area, initial encounter; W18.2XXA Fall in (into) shower or empty bathtub, initial encounter; I10 Essential (primary) hypertension; Y93.E1 Activity, personal bathing and showering; Y92.002 Bathroom of unspecified non-institutional (private) residence as the place of occurrence of the external cause; Y99.9 Unspecified external cause status; Z20.3 Contact with and (suspected) exposure to rabies
CPT/HCPCS: 12013; 70450; 72125; 73030; 73060; 90471; 90715; 99284

== ENCOUNTER 2023-12-17 09:11 | Outpatient (REF) | payer MEDICARE, SELFPAY ==
--- NOTE | ~2023-12-17 | XR_ITS ---
EXAMINATION: XR SHOULDER, LEFT CLINICAL INFORMATION: Pain in the left shoulder COMPARISON: Prior radiographs October 2023 TECHNIQUE: 3 views of the left shoulder. FINDINGS: Proximal humerus fracture redemonstrated with unchanged alignment. There is calcification/ossification surrounding the proximal humerus in the area the fracture compatible with callus formation and/or heterotopic ossification. There is mild arthrosis of the acromioclavicular joint. XR/XR shoulder LT min 2V IMPRESSION: Proximal humerus fracture unchanged in alignment with some callus formation and/or heterotopic ossification suggesting some interval fracture healing.
== END 2023-12-17 09:12 | disposition home or self-care (01) ==
LOC: HO.HOSX 09:11
PROVIDERS: Visit Provider Physician Assistant
DX: Z13.89 Encounter for screening for other disorder (principal)
CPT/HCPCS: 73030

== ENCOUNTER 2023-12-17 10:45 | Outpatient (AMB) | payer MEDICARE, SELFPAY ==
--- OUTSIDE RECORDS SUMMARY | 2023-12-17 10:46 | XMS_ITS | Continuity of Care Document ---
Author Organization [facility] Address [address] [place] [id number]- Care Team Providers Care Aircraft Maintenance Supervisor Name Role Phone Manjit Louise MD Primary Care Physician Encounter [facility] Date(s): 11/17/20 - 01/17/21 [facility] [address] [place] [id number]- Attending Physician: Michelle Perrin MD Admitting Physician: Michelle Perrin MD Referring Physician: Manjit Louise MD Allergies, Adverse Reactions, Alerts Substance Reaction Severity Status doxycycline Active lidocaine Active sulfADIAZINE Moderate Active cephalosporins Moderate Active quinolone antibiotics Active Medications Adderall = 40 mg, By Mouth, 2 times a day, 0 Refills, Maintenance, 12/07/17 13:32:24 EDT Start Date: 12/07/17 Status: Ordered amphetamine-dextroamphetamine 20 mg oral tablet 1 tablet = 20 mg, By Mouth, 3 times a day, per pt on 01/14/2021., 0 Refills, Maintenance, 05/29/20 11:17:00 EST, Tablet Start Date: 05/29/20 Status: Ordered aspirin 325 mg oral enteric coated tablet 1 tablet = 325 mg, By Mouth, Daily, # 30 tablet, 0 Refills, Maintenance, EC Tablet Start Date: 12/15/11 Status: Ordered cloNIDine 0.1 mg oral tablet 0.1 mg, 1, tablet, By Mouth, 3 times a day, Refills 0, Maintenance, 07/22/19 10:24:00 EST Start Date: 07/22/19 Status: Ordered cyproheptadine 4 mg oral tablet 4 mg, 1, tablet, By Mouth, 3 times a day, prn, Refills 0, Maintenance, 04/06/19 9:43:58 EDT Start Date: 04/06/19 Status: Ordered ferrous sulfate 325 mg oral tablet 1 tablet = 325 mg, By Mouth, 3 times a day, Take one daily to start, if tolerated to increase to TID, # 90 tablet, 3 Refills, Maintenance, 12/10/17 15:28:00 EDT, Tablet Start Date: 12/10/17 Status: Ordered levothyroxine 0.025 mg oral tablet 1 tablet = 25 mcg, By Mouth, Daily, # 30 tablet, 0 Refills, Maintenance, 12/04/17 11:06:48 EDT, Tablet Start Date: 12/04/17 Status: Ordered levothyroxine 75 mcg (0.075 mg) oral tablet 1 tablet = 75 mcg, By Mouth, Daily, # 30 tablet, 0 Refills, Maintenance, 04/06/19 9:42:18 EDT, Tablet Start Date: 04/06/19 Status: Ordered lorazepam 1 mg oral tablet 1 tablet = 1 mg, By Mouth, 3 times a day, PRN for anxiety, 0 Refills, Maintenance, Tablet Start Date: 12/15/11 Status: Ordered Verapamil 240 mg ER tablet = 300 mg, By Mouth, Daily in AM, 0 Refills, Maintenance, 12/15/11 10:07:17 EDT Start Date: 12/15/11 Status: Ordered verapamil 360 mg oral capsule, extended release 1 capsule = 360 mg, By Mouth, Daily, # 30 capsule, 0 Refills, Maintenance, 05/29/20 11:16:00 EST, CR Capsule Start Date: 05/29/20 Status: Ordered Problem List Condition Effective Dates Status Health Status Inform ant ADHD(Confirmed) Active Dyspnea(Confirmed) Active Hypertension(Confirmed) Active Hypothyroidism(Confirmed) Active Hypoxemia(Confirmed) Active Lyme disease(Confirmed) Active Patent foramen ovale(Confirmed) Active Sleep apnea(Confirmed) Active Social History Social History Type Response Smoking Status Former smoker, quit more than 30 days ago entered on: 07/09/18 Sex Female
--- OUTSIDE RECORDS SUMMARY | 2023-12-17 10:47 | XMS_ITS | Continuity of Care Document ---
Author Organization [facility] Address [address] [place] [id number]- Care Team Providers Care Addiction Therapist Name Role Phone Manjit Louise MD Primary Care Physician [phone] Encounter [facility] Date(s): 03/19/21 - 04/18/21 [facility] [address] [place] [address]- [place] Allergies, Adverse Reactions, Alerts Substance Reaction Severity [...]
--- OUTSIDE RECORDS SUMMARY | 2023-12-17 10:47 | XMS_ITS | Continuity of Care Document ---
Author Organization [facility] Address [address] [phone]- Care Team Providers Care Pre Assembly Wirer Name Role Phone Manjit Louise MD Primary Care Physician [phone] Encounter [facility] Date(s): 08/15/22 - 12/13/22 [facility] [address] [place] [id number] Attending Physician: Suzan Trevizo MD Admitting Physician: Suzan Trevizo MD Referring Physician: Manjit Louise MD Allergies, [...] Date: 05/29/20 Status: Ordered Problem List Condition Confirmation Course Effective Dates Status H ealth Status Informant ADHD Confirmed Active Dyspnea Confirmed Active Hypertension Confirmed Active Hypothyroidism Confirmed Active Hypoxemia Confirmed Active Lyme disease Confirmed Active Patent foramen ovale Confirmed Active Sleep apnea Confirmed Active Social History Social History Type Response Smoking Status Former smoker, quit more than 30 days ago entered on: 07/09/18 Sex Female Patient Care team information Care Team Personnel Name: Manjit Louise MD Position: S Outreach Member Role: PCP Address: Address: [address] [place] [id number]- Care Team Related Persons Name: ADAN HAZEL Address: home [address] [place] [id number]
--- OUTSIDE RECORDS SUMMARY | 2023-12-17 10:47 | XMS_ITS | Continuity of Care Document ---
Author Organization [facility] M ed[facility] Address [address] [place] [address]- Care Team Providers Care Electronics Hardware Design Engineer Name Role Phone Aspen FIELD, Manjit Aguilar Primary Care Physician [phone] Encounter [facility] Date(s): 03/02/20 - 04/01/20 [facility] [address] [place] [address]- [facility] Allergies, Adverse Reactions, Alerts Substance Reaction Severity Status doxycycline Active lidocaine Active sulfADIAZINE Moderate Active cephalosporins Moderate Active quinolone antibiotics Active Medications Adderall = 40 mg, By Mouth, 2 times a day, 0 Refills, Maintenance, 12/07/17 13:32:24 EDT Start Date: 12/07/17 Status: Ordered aspirin 325 mg oral enteric coated tablet 1 tablet = 325 mg, By Mouth, Daily, # 30 tablet, 0 Refills, Maintenance, EC Tablet Start Date: 12/15/11 Status: Ordered cloNIDine 0.1 mg oral tablet 0.1 mg, 1, tablet, By Mouth, 2 times a day, Refills 0, Maintenance, 07/22/19 [...] 10:07:17 EDT Start Date: 12/15/11 Status: Ordered Problem List Condition Effective Dates Status Health Status Inform ant ADHD(Confirmed) Active Dyspnea(Confirmed) Active Hypertension(Confirmed) Active Hypothyroidism(Confirmed) Active Hypoxemia(Confirmed) Active Lyme disease(Confirmed) Active Patent foramen ovale(Confirmed) Active Sleep apnea(Confirmed) Active Social History Social History Type Response Smoking Status Former smoker, quit more than 30 days ago entered on: 07/09/18 Sex Female
--- OUTSIDE RECORDS SUMMARY | 2023-12-17 10:47 | XMS_ITS | Continuity of Care Document ---
Author Organization [facility] Address [address] [place] [address]- Care Team Providers Care Paper Bag Inspector Name Role Phone Manjit Louise MD Primary Care Physician [phone] Encounter [facility] [facility] Date(s): 04/23/21 - 05/23/21 [facility] [address] [place] [address]- Attending Physician: Sindhu Serra Admitting Physician: AdmtrSindhu Referring Physician: Admtr ArYamilet Allergies, Adverse Reactions, Alerts Substance Reaction Severity [...]
--- OUTSIDE RECORDS SUMMARY | 2023-12-17 10:47 | XMS_ITS | Continuity of Care Document ---
Author Organization [facility] Address [address] [place] [address]- Care Team Providers Care Mat Inspector Name Role Phone Aspen FIELD, Manjit Aguilar Primary Care Physician [phone] [place] [facility] Date(s): 01/06/20 - 02/05/20 [facility] [address] [place] [address]- [facility] Attending Physician: Sindhu Serra Admitting Physician: Sindhu Serra Referring Physician: AdmtrSindhu Allergies, Adverse Reactions, Alerts Substance Reaction Severity [...]
--- OUTSIDE RECORDS SUMMARY | 2023-12-17 10:47 | XMS_ITS | Continuity of Care Document ---
Author Organization [facility] y Address [address] [place] [address]- Care Team Providers Care Pop Singer Name Role Phone Manjit Louise MD Primary Care Physician [phone] Encounter [facility] Date(s): 01/24/21 - 05/09/21 [facility] Rhe[facility] [address] [place] [address]- Attending Physician: Gregory Hernandez MD Referring Physician: Manjit Louise MD Allergies, [...]
--- OUTSIDE RECORDS SUMMARY | 2023-12-17 10:47 | XMS_ITS | Continuity of Care Document ---
Author Organization [facility] ter Address [address] [place] [address]- Care Team Providers Care Mattress And Boxsprings Supervisor Name Role Phone Aspen FIELD, Manjit Aguilar Primary Care Physician Encounter [facility] Date(s): 12/16/20 - 12/17/[address] [address]- Discharge Disposition: A-D/C Walkout Attending Physician: Not on Staff, Attending MD Admitting Physician: Not on Staff, Admitting MD Referring Physician: Not on Staff, Referring MD Allergies, Adverse Reactions, Alerts Substance Reaction Severity Status doxycycline Active lidocaine Active sulfADIAZINE Moderate Active cephalosporins Moderate Active quinolone antibiotics Active Medications Adderall = 40 mg, By Mouth, 2 times a day, 0 Refills, Maintenance, 12/07/17 13:32:24 EDT Start Date: 12/07/17 Status: Ordered amphetamine-dextroamphetamine 20 mg oral tablet 1 tablet = 20 mg, By Mouth, 2 times a day, 0 Refills, Maintenance, 05/29/20 11:17:00 EST, Tablet [...] Patent foramen ovale(Confirmed) Active Sleep apnea(Confirmed) Active Results Radiology Reports * Exam Date Time Procedure Performing Provider Status 12/16/20 6:56 PM Chest 2 Views Frontal and Lat Norma Gamez; Keanu (Verified) Notes: (Chest 2 Views Frontal and Lat) Reason For Exam: Chest Pain;Other: RESULT: Chest 2 Views Frontal and Lat Chest 2 Views Frontal and Lat Hx of Present Illness: pt states BLE since 2019 but today worse than ever with BLE redness, no opens areas. +2 edema. dyspnea on exertion. denies chest pain. states no diuretics at home and has had a problem with her htn ; Reason: Other:; Chest Pain; Clinical Question(s): Other: COMPARISON: Web Assistant radiograph chest CT 10/16/2005 FINDINGS: No acute cardiopulmonary process. 1 cm nodular density projecting over the right ninth posterior rib. IMPRESSION: No acute abnormality. Nonemergent chest CT is recommended for 1 cm nodular density projecting over the right ninth posterior rib A Yellow message has been communicated via the [employer] system on 12/16/2020 7:04 PM, Message ID [id number]. WSN: [id number] Ordering Physician: Chante Mcknight MD Dictated By: Lamine Gandara MD Dictated Date/Time: 12/16/20 7:04 pm Reviewed By: Lamine Gandara MD Signed By: Lamine Gandara MD Signed Date/Time: 12/16/20 7:04 pm Transcribed By: THERESA Transcribed Date/Time: 12/16/20 7:02 pm Vital Signs Most recent to oldest [Reference Range]: 1 2 3 Oxygen Saturation [94-100 %] 99 % (12/17/20 12:46 AM) 98 % (12/16/20 4:48 PM) 97 % (12/16/20 4:30 PM) Pulse Rate [55-90 bpm] 88 bpm (12/16/20 4:48 PM) 64 bpm (12/16/20 4:30 PM) Blood Pressure [90-138/55-84 mm Hg] 185/84mm Hg *H* (12/17/20 12:46 AM) 176/83mm Hg *H* (12/16/20 4:48 PM) Respiratory Rate [16-30 br/min] 20 br/min (12/17/20 12:46 AM) 16 br/min (12/16/20 4:48 PM) Temperature [96.8-100.4 DegF] 97.6 DegF (12/17/20 12:46 AM) 98.1 DegF (12/16/20 4:48 PM) Mode of Delivery (Oxygen) Room air (12/17/20 12:46 AM) Room air (12/16/20 4:48 PM) Room air (12/16/20 4:30 PM) Blood pressure sites Arm, right (12/17/20 12:46 AM) Arm, right (12/16/20 4:48 PM) Temperature Route Oral (12/17/20 12:46 AM) Oral (12/16/20 4:48 PM) Social History Social History Type Response Smoking Status Former smoker, quit more than 30 days ago entered on: 07/09/18 Sex Female
--- OUTSIDE RECORDS SUMMARY | 2023-12-17 10:47 | XMS_ITS | Continuity of Care Document ---
Author Organization [facility] Card[facility] Address [address] [place] [address]- Care Team Providers Care Handbag Finisher Name Role Phone Aspen FIELD, Manjit Aguilar Primary Care Physician Encounter [facility] Date(s): 03/19/21 - 05/23/21 [facility] [address] [place] [address]- Attending Physician: Zahira Heard MD Referring Physician: Rafael Santacruz MD Allergies, Adverse Reactions, Alerts Substance Reaction Severity Status doxycycline Active lidocaine Active sulfADIAZINE Moderate Active quinolone antibiotics Active cephalosporins Moderate Active Medications Adderall = 40 mg, By [...]
--- OUTSIDE RECORDS SUMMARY | 2023-12-17 10:47 | XMS_ITS | Continuity of Care Document ---
Author Organization [facility] ed[facility] Address [address] [place] [address]- Care Team Providers Care Advanced Quality Engineer Name Role Phone Aspen FIELD, Manjit Aguilar Primary Care Physician Encounter [id number] Date(s): 11/13/22 - 12/13/22 [facility] [address] [place] [address]- Attending Physician: Sindhu Serra Admitting Physician: Sindhu Serra Referring Physician: Sindhu Serra Referring Physician: Louise Mcrae Referring Physician: Louise Mcrae Allergies, Adverse Reactions, Alerts Substance Reaction Severity [...] days ago entered on: 07/09/18 Sex Female Laboratory * Event Display: Non Lab Results Authored Date: Radiology * Event Display: CT Scan Chest, Non- BH Authored Date: * Event Display: CT Scan Chest, Non- BH Authored Date: * Event Display: X-Ray Chest, Non- BH Authored Date: Patient Care team information Care Team Personnel Name: Aspen FIELD , Manjit Aguilar Position: S Outreach Member Role: PCP Address: Address: [address] [place] [address]- Care Team Related Persons Name: ADAN HAZEL Address: home [address] [place] [address]
--- OUTSIDE RECORDS SUMMARY | 2023-12-17 10:47 | XMS_ITS | Continuity of Care Document ---
Author Organization [facility] ed[facility] Address [address] [place] [address]- Care Team Providers Care Ad Compositor Name Role Phone Aspen FIELD, Manjit Aguilar Primary Care Physician Encounter [facility] [place] Date(s): 04/25/21 - 05/25/21 [facility] [address] [place] [address]- Attending Physician: Sindhu Serra Admitting Physician: Sindhu [...]
--- OUTSIDE RECORDS SUMMARY | 2023-12-17 10:47 | XMS_ITS | Continuity of Care Document ---
Author Organization [facility] ed[facility] Address [address] [place] [address]- Care Team Providers Care Electronics System Mechanic Name Role Phone Manjit Louise MD Primary Care Physician [place] [facility]s): 01/25/21 - 05/25/21 [facility] [address] [place] [address]- Attending Physician: Louise Alfonso MD Admitting Physician: Louise Alfonso MD Referring Physician: Manjit Louise MD Allergies, Adverse Reactions, Alerts Substance Reaction Severity Status doxycycline Active lidocaine Active quinolone antibiotics Active sulfADIAZINE Moderate Active cephalosporins Moderate Active Medications Adderall = [...]
--- OUTSIDE RECORDS SUMMARY | 2023-12-17 10:47 | XMS_ITS | Continuity of Care Document ---
Author Organization [facility] Address [address] [place] [address]- Care Team Providers Care Legal Counsel Name Role Phone Aspen FIELD, Manjit Aguilar Primary Care Physician Encounter [facility] Date(s): 04/09/21 - 05/09/21 [facility] [address] [place] [address]- Attending Physician: Sindhu Serra Admitting Physician: AdmtrSindhu Referring Physician: AdmtrSindhu Allergies, Adverse Reactions, Alerts [...]
--- OUTSIDE RECORDS SUMMARY | 2023-12-17 10:47 | XMS_ITS | Continuity of Care Document ---
Author Organization [facility] Card[facility] Address [address] [place] [address]- Care Team Providers Care Programmer Or Analyst Name Role Phone Aspen FIELD, Manjit Aguilar Primary Care Physician [phone] Encounter [facility] Date(s): 10/13/19 - 02/10/20 [facility] [address] [place] [address]- [facility] Attending Physician: Gideon Banda MD Admitting Physician: Gideon Banda MD Referring Physician: Rafael Santacruz MD Allergies, [...]
--- OUTSIDE RECORDS SUMMARY | 2023-12-17 10:47 | XMS_ITS | Continuity of Care Document ---
Author Organization [facility] ter Address [address] [place] [address]- Care Team Providers Care Quality Control Engineer Name Role Phone Manjit Louise MD Primary Care Physician [phone] Encounter [facility] Date(s): 09/11/23 - 09/11/[address] [address]- Attending Physician: Nathaniel Kim DO Allergies, Adverse Reactions, Alerts Substance Reaction Severity [...] S Outreach Member Role: PCP Address: Address: [address] [place] [address]- Care Team Related Persons Name: ADAN HAZEL Address: home [address] [place] [address]
--- NOTE | 2023-12-17 11:08 | A.OFFVIS_ITS ---
Vital Signs 12/17/23 11:14 Height 5 ft 3 in Weight 118 lb BMI 20.9 Intake Visit Reasons: comminuted left humeral fracture Intake Note: Anahi a 73 year old female who presents today for an evaluation of left humeral fracture, DOI 11/17/23. Patient reports having a fall landing on her on her left side while getting in the shower. States she hit her head and had instant pain to her arm. She presented to [facility] [place] [facility] where xrays were taken and referred to orhtopedics. Currently she has improvement in her pain, stating little pain here and there with movement. She mentions having sensitivity to all medication. Allergies Penicillins [PENICILLINS] Allergy (Unknown, Verified 12/17/23 11:09) UNKNOWN-SICK DAYS LATER Sulfa (Sulfonamide Antibiotics) [SULFA (SULFONAMIDE ANTIBIOTICS)] Allergy (Unknown, Verified 12/17/23 11:09) UNKNOWN- SICK DAYS LATER, hives acetaminophen [ACETAMINOPHEN] Adverse Reaction (Severe, Verified 12/17/23 11:09) BAD EFFECTS HPI HPI comminuted left humeral fracture: Details: 73-year-old female who presents to the office today for evaluation of left humerus injury after a fall and landing on her left side while getting in the shower, 11/17/23. She was seen at ER where x-rays were performed and she was ref erred to our office. She currently states she has improvement in her pain however does have mild pain in her arm with movement. She reports sensitivity to all kinds of medications. [facility] Medical History Pulmonary nodule 1 cm or greater in diameter PFO (patent foramen ovale) Surgical History History of wisdom tooth extraction Family History Father No problems noted. Mother No problems noted. Social History (Updated 12/17/23 @ 11:12 by PATRICIA Stauffer) Housing: House Alcohol intake: current Alcohol intake frequency: holidays/special occasions only Patient Tobacco Use Status: Former Tobacco user Quit Date: 33 years ago Tobacco use type: Cigarette Cigarettes Per Day: 20 Years Smoked: 13 e-Cigarette/Vaping Use: Never Used service: No Current occupational status: retired Current occupation: right hand dominant Cognitive needs: No Hearing needs: No Vision needs: No Review of Systems Const All systems reviewed & are unremarkable except as noted in HPI and below Physical Exam Vital Signs: BMI result Body Mass Index 20.9 Extrem Other: Left shoulder: Normal to inspection. Diffuse Swelling and tenderness over the proximal humerus which extends down the arm. Anterior deltoid sensation intact. Elbow and wrist ROM intact. NVI. Office Procedures Fracture Care Fracture Billing Code: Fracture Billing Code Results Reviewed Results Reviewed: Xrays were obtained in the office today and personally reviewed by me of the left shoulder show interval healing with stable fracture pattern Assessment & Plan Assessment & Plan (1) Closed comminuted left humeral fracture: Code(s): S42.352A - Displaced comminuted fracture of shaft of humerus, left arm, initial encounter for closed fracture Category: Medical Qualifiers: Encounter type: initial encounter Fracture alignment: displaced Humerus Location: shaft Qualified Code(s): S42.352A - Displaced comminuted fracture of shaft of humerus, left arm, initial encounter for closed fracture Plan She will continue with activities as tolerated. She will use caution with any type of lifting, pushing, pulling or carrying till I see her back in 6 weeks with new x-rays, sooner if needed. I also offered her formal physical therapy which she declined at this time. Orders: Orders XR shoulder LT min 2V Today M25.512 - Pain in left shoulder Patient Instructions: Scribed for Lawrence Snider PA-C, by Curry Meneses medical center manager, on 12/17/2023 at 10:15 AM EST.? I, Lawrence Snider PA-C, have personally reviewed and agree with the information entered by the scribe. Coding Level of Care Code New Pt Level 3 (76546) Diagnoses Closed comminuted left humeral fracture S42.352A Encounter type: initial encounter Fracture alignment: displaced Humerus Location: shaft CPT Codes Fracture Care - Fracture Billing Code: Fracture Billing Code ([id number])
[2023-12-17 11:14] VITALS: BMI 20.9
== END 2023-12-17 11:52 | disposition home or self-care (01) ==
LOC: HO.HOS 10:45
PROVIDERS: PCP Family Medicine; Visit Provider Physician Assistant
DX: S42.352A Displaced comminuted fracture of shaft of humerus, left arm, initial encounter for closed fracture (principal)
CPT/HCPCS: 99203

== ENCOUNTER 2023-12-17 11:36 | Outpatient (REF) | payer MEDICARE, SELFPAY ==
[2023-12-17 13:18] LABS: MANUAL DIFF FLAG NO
[2023-12-17 13:33] LABS: Basophils Absolute Auto 0.1 X10*3/uL (0.0-0.2); Basophils Percent Auto 0.6 % (0-2); Eosinophils Absolute Auto 0.3 X10*3/uL (0.0-0.4); Eosinophils Percent Auto 3.3 % (0-4); Hematocrit 35.2 % (37.0-47.0); Hemoglobin 11.6 g/dl (12.0-16.0); Imm Gran Abs Auto 0.02 X10*3/uL (0.00-0.03); Imm Gran Pct Auto 0.3 % (0.0-0.4); Lymphocytes Absolute Auto 1.1 X10*3/uL (1.2-4.9); Mean Corpuscular Hemoglobin 30.4 pg (27.0-33.0); Mean Corpuscular Volume 92.1 fL (80.0-98.0); Monocytes Absolute Auto 0.8 X10*3/uL (0.1-1.2); Monocytes Percent Auto 9.9 % (2-11); Neutrophils Absolute Auto 5.6 x10*3/uL (2.0-8.3); Neutrophils Percent Auto 71.9 % (45-73); Platelet Count 249 X10*3/uL (160-400); Red Blood Count 3.82 X10*6/uL (4.20-5.50); Red Cell Distribution Width 12.6 % (11.0-16.0); White Blood Count 7.8 X10*3/uL (4.8-10.8)
[2023-12-17 14:02] LABS: Alanine Aminotransferase 12 U/L (0-31); Albumin Level 3.8 g/dL (3.5-5.0); Alkaline Phosphatase 102 U/L (39-117); Anion Gap 14 (12-20); Aspartate Amino Transferase 16 U/L (5-31); Bilirubin Total 0.2 mg/dL (0.0-1.0); Blood Urea Nitrogen 20 mg/dL (9-16); Calcium 9.2 mg/dL (8.4-10.2); Carbon Dioxide 33 mmol/L (22-29); Chloride 99 mmol/L (96-108); Cholesterol 142 mg/dL (<200); Estimated Glomerular Filt Rate > 60; Free T4 (Free Thyroxine) 1.07 ng/dL (0.71-1.85); Glucose Fasting 93 mg/dL (60-99); HDL Cholesterol 54 mg/dL (>40); LDL Cholesterol Calculated 77 mg/dL (<100); Potassium 3.1 mmol/L (3.3-5.1); Sodium 143 mmol/L (135-145); Thyroid Stimulating Hormone 4.72 uIU/mL (0.32-4.0); Total Protein 7.4 g/dL (6.5-8.0); Triglycerides 56 mg/dL (<150)
[2023-12-17 14:17] LABS: Erythrocyte Sedimentation Rate 28 MM/HR (0-20)
[2023-12-18 08:04] LABS: Triiodothyronine T3 Total 147 ng/dL (76-181)
[2023-12-18 10:53] LABS: Thyroid Peroxidase Antibodies <1 IU/mL (<9)
[2023-12-18 14:18] LABS: CRP High Sensitivity 12.7 mg/L
== END 2023-12-17 11:37 | disposition home or self-care (01) ==
LOC: HO.10HDL 11:36
PROVIDERS: Visit Provider Family Medicine
DX: S42.352A Displaced comminuted fracture of shaft of humerus, left arm, initial encounter for closed fracture (principal); Z00.00 Encounter for general adult medical examination without abnormal findings; E03.9 Hypothyroidism, unspecified
CPT/HCPCS: 36415; 73030; 80053; 80061; 84439; 84443; 84480; 85025; 85652; 86141; 86376; 99202

== ENCOUNTER 2024-01-29 07:52 | Outpatient (REF) | payer MEDICARE, SELFPAY ==
--- NOTE | ~2024-01-29 | XR_ITS ---
EXAMINATION: XR SHOULDER, LEFT CLINICAL INFORMATION: Left shoulder pain COMPARISON: Radiographs 12/17/2023 TECHNIQUE: Three views of the left shoulder. FINDINGS: Continued healing of the proximal humerus fracture with stable positioning and alignment. Increased callus formation and osseous bridging. Mild acromioclavicular osteoarthritis. XR/XR shoulder LT min 2V IMPRESSION: Continued healing of the proximal humerus fracture with stable positioning and alignment.
== END 2024-01-29 07:53 | disposition home or self-care (01) ==
LOC: HO.HOSX 07:52
PROVIDERS: Visit Provider Physician Assistant
DX: M25.512 Pain in left shoulder (principal); S42.352D Displaced comminuted fracture of shaft of humerus, left arm, subsequent encounter for fracture with routine healing; X58.XXXD Exposure to other specified factors, subsequent encounter
CPT/HCPCS: 73030; 99212

== ENCOUNTER 2024-01-29 09:40 | Outpatient (AMB) | payer MEDICARE, SELFPAY ==
--- NOTE | 2024-01-29 09:54 | A.OFFVIS_ITS ---
Vital Signs 01/29/24 10:01 Height 5 ft 3 in Weight 130 lb BMI 23.0 Handedness Right Intake Visit Reasons: F/U, comminuted left humeral fracture Intake Note: Anahi is a 73 year old right hand dominant female who presents today for a follow up s/p left humeral fracture, DOI 11/17/23. Patient reports she is doing well and has used caution with activities such as lifting, pushing, and carrying. She has no trouble with her ROM now, occasional soreness if she over- uses her left arm but no concerns otherwise. She expresses she has not wore her sling since her last visit due to her improvements. She would like to discuss her reports of her x-ray of her humeral fracture, she said she read something about may needing an MRI in her Patient Portal and would like to know if that is for her current problem. Allergies Penicillins [PENICILLINS] Allergy (Unknown, Verified 01/29/24 10:00) UNKNOWN-SICK DAYS LATER Sulfa (Sulfonamide Antibiotics) [SULFA (SULFONAMIDE ANTIBIOTICS)] Allergy (Unknown, Verified 01/29/24 10:00) UNKNOWN- SICK DAYS LATER, hives acetaminophen [ACETAMINOPHEN] Adverse Reaction (Severe, Verified 01/29/24 10:00) BAD EFFECTS Medication List - Last Reconciled 01/29/24 by Lawrence Snider PA-C clonidine HCl 0.3 mg PO TID dextroamphetamine-amphetamine 20 mg (Adderall) 20 mg PO DAILY 30 days doxycycline hyclate 100 mg PO BID 10 days hydrocortisone 1% 1 appl topical BID PRN 30 days lorazepam 1 mg PO TID 30 days verapamil ER 180 mg PO Q12H 90 days HPI HPI F/U, comminuted left humeral fracture: Details: 73-year-old right hand dominant female who returns to the office today for a follow-up of left humeral fracture, 11/16/22. She reports she has occasional soreness and twinging sensation in her arm with overuse however she is doing well otherwise. She has discontinued her sling as she had improvement in her symptoms. She has no other concerns today. [facility] Medical History Pulmonary nodule 1 cm or greater in diameter PFO (patent foramen ovale) Surgical History History of wisdom tooth extraction Family History Father No problems noted. Mother No problems noted. Social History Housing: House (With Son) Alcohol intake: current Alcohol intake frequency: holidays/special occasions only Patient Tobacco Use Status: Former Tobacco user Tobacco use type: Cigarette Cigarettes Per Day: 20 Years Smoked: 13 e-Cigarette/Vaping Use: Never Used service: No Current occupational status: retired Current occupation: right hand dominant Cognitive needs: No Hearing needs: No Vision needs: No Review of Systems Const All systems reviewed & are unremarkable except as noted in HPI and below Physical Exam Vital Signs: BMI result Body Mass Index 23.0 Extrem Other: Left shoulder: Normal to inspection. No Swelling or tenderness over the proximal humerus . Anterior deltoid sensation intact. Elbow and wrist ROM intact. Full ROM in all planes. NVI. Results Reviewed Results Reviewed: Xrays were obtained in the office today and personally reviewed by me of the left shoulder show interval healing with stable fracture pattern Assessment & Plan Assessment & Plan (1) Closed comminuted left humeral fracture: Code(s): S42.352A - Displaced comminuted fracture of shaft of humerus, left arm, initial encounter for closed fracture Category: Medical Qualifiers: Encounter type: initial encounter Fracture alignment: displaced Humerus Location: shaft Qualified Code(s): S42.352A - Displaced comminuted fracture of shaft of humerus, left arm, initial encounter for closed fracture Plan She will continue increasing activities as tolerated as long as she has no pain. If symptoms persist or worsen, patient will contact the office, otherwise follow-up as needed. Orders: Orders XR shoulder LT min 2V Today M25.512 - Pain in left shoulder Patient Instructions: Scribed for Lawrence Snider PA-C, by Curry Meneses medical doctor nuclear medicine, on 01/29/2024 at 9:30 AM EST.? I, Lawrence Snider PA-C, have personally reviewed and agree with the information entered by the scribe. Coding Level of Care Code Global (89706) Diagnoses Closed comminuted left humeral fracture S42.352A Encounter type: initial encounter Fracture alignment: displaced Humerus Location: shaft
[2024-01-29 10:01] VITALS: BMI 23.0
== END 2024-01-29 10:48 | disposition home or self-care (01) ==
PROVIDERS: PCP Family Medicine; Referring Provider Family Medicine; Visit Provider Physician Assistant
DX: S42.352A Displaced comminuted fracture of shaft of humerus, left arm, initial encounter for closed fracture (principal)
CPT/HCPCS: 99213

== ENCOUNTER 2024-02-15 18:53 | Inpatient (IN) | payer MEDICARE, SELFPAY ==
[2024-02-15 19:01] VITALS: BP 155/92; BP 158/96; PULSE 78; PULSE 87; RESP 18; TEMP 36.6; O2SAT 97; O2SAT 98; BMI 19.6
[2024-02-15 19:14] VITALS: BP 155/92; PULSE 72; RESP 16; TEMP 36.6; O2SAT 99
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
--- OUTSIDE RECORDS SUMMARY | 2024-02-15 20:16 | XMS_ITS | Continuity of Care Document ---
Author Organization [facility] Address [address] [place] [id number]- Care Team Providers Care Life Scientist Name Role Phone Asp[place] FIELD, Manjit Aguilar Primary Care Physician [phone] Encounter [facility] Date(s): 04/26/21 - 05/26/21 [facility] [address] [place] [id number]- Allergies, Adverse Reactions, Alerts Substance Reaction Severity [...]
[2024-02-15] MEDS: LORazepam 1 MG TABLET 2 MG PO (21:13)
[2024-02-15 21:18] LABS: MANUAL DIFF FLAG NO
[2024-02-15 21:19] LABS: Basophils Percent Auto 0.6 % (0-2); Eosinophils Absolute Auto 0.1 X10*3/uL (0.0-0.4); Hematocrit 40.7 % (37.0-47.0); Hemoglobin 13.6 g/dl (12.0-16.0); Imm Gran Abs Auto 0.01 X10*3/uL (0.00-0.03); Imm Gran Pct Auto 0.1 % (0.0-0.4); Lymphocytes Absolute Auto 0.9 X10*3/uL (1.2-4.9); Lymphocytes Percent Auto 13.4 % (20-40); Mean Corpuscular HGB Conc 33.4 g/dl (31.0-35.0); Mean Corpuscular Hemoglobin 29.9 pg (27.0-33.0); Mean Corpuscular Volume 89.5 fL (80.0-98.0); Mean Platelet Volume 9.4 fL (9.4-12.3); Monocytes Absolute Auto 0.4 X10*3/uL (0.1-1.2); Monocytes Percent Auto 5.6 % (2-11); Neutrophils Absolute Auto 5.5 x10*3/uL (2.0-8.3); Neutrophils Percent Auto 79.3 % (45-73); Platelet Count 305 X10*3/uL (160-400); Red Blood Count 4.55 X10*6/uL (4.20-5.50); Red Cell Distribution Width 12.3 % (11.0-16.0); White Blood Count 6.9 X10*3/uL (4.8-10.8)
[2024-02-15 21:26] LABS: Appearance Urine Cloudy; Bacteria Urine None Seen (None Seen); Color Urine Yellow; Glucose Urine UA Negative (Negative); Hyaline Casts Urine 0-2 /LPF (0-2); Leukocyte Esterase Urine Moderate (2+) (Negative); Nitrite Urine Negative (Negative); RBC Urine 0-2 /HPF (0-2); Specific Gravity - Urine 1.015 (1.005-1.025); Squamous Epithelial Cell Urine 0-2 /HPF (0-2); UACC Culture Trigger YES; UMIC TRIGGER UACC YES; Urine Blood Negative (Negative); Urine Ketones Negative (Negative); Urine Protein Negative (Neg-Trace)
[2024-02-15 21:35] LABS: Alanine Aminotransferase 13 U/L (0-31); Albumin Level 4.2 g/dL (3.5-5.0); Alkaline Phosphatase 96 U/L (39-117); Anion Gap 13 (12-20); Aspartate Amino Transferase 19 U/L (5-31); Bilirubin Total 0.2 mg/dL (0.0-1.0); Blood Urea Nitrogen 15 mg/dL (9-16); Calcium 9.5 mg/dL (8.4-10.2); Carbon Dioxide 27 mmol/L (22-29); Chloride 104 mmol/L (96-108); Estimated Glomerular Filt Rate > 60; Glucose Random 102 mg/dL (60-115); Potassium 4.1 mmol/L (3.3-5.1); Sodium 140 mmol/L (135-145); Total Protein 8.1 g/dL (6.5-8.0)
[2024-02-15 21:36] LABS: Acetaminophen LAB < 3 mcg/mL (<30); Ethanol < 10 mg/dL; Salicylate < 5.0 mg/dL (15-30)
[2024-02-15 21:37] LABS: Amphetamine Screen Urine Not Detected (Not Detect); Barbiturates, Urine Not Detected (Not Detect); Benzodiazepines Screen Urine POSITIVE (Not Detect); Buprenorphine Scr Not Detected (Not Detect); Cannabinoid Screen Urine Not Detected (Not Detect); Cocaine Screen Urine Not Detected (Not Detect); Fentanyl, urine Not Detected (Not Detect); Methadone Screen, Urine Not Detected (Not Detect); Opiate Screen Urine Not Detected (Not Detect); Oxycodone Screen Urine Not Detected (Not Detect); Phencyclidine Screen Urine Not Detected (Not Detect)
[2024-02-16 01:15] VITALS: BP 150/107; PULSE 81; TEMP 36.6; O2SAT 98
[2024-02-16] MEDS: cloNIDine HCL 0.1 MG TABLET 0.3 MG PO ×4 (03:34→19:55)
--- NOTE | 2024-02-16 07:52 | PC.NURSE ---
Assumed care of patient at 0645, patient appears to be sleeping respirations even and unlabored, no apparent distress noted. Continue plan of care for case managment follow up
[2024-02-16 08:33] VITALS: BP 124/64
[2024-02-16] MEDS: LORazepam 1 MG TABLET PO ×3 (08:33→19:55)
[2024-02-16] MEDS: Amphetamine Mixed Salts 20 MG TABLET PO (08:33)
[2024-02-16 08:39] VITALS: BP 124/64; PULSE 64; RESP 16; TEMP 36.6; O2SAT 99
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
--- NOTE | 2024-02-16 14:40 | PC.NURSE ---
pending Verapamil from pharmacy
[2024-02-16 16:54] VITALS: BP 143/96; PULSE 86
[2024-02-16] MEDS: VerapamiL HCL SR 180 MG TABLET.ER PO (16:54)
--- NOTE | 2024-02-16 19:12 | PC.NURSE ---
patient appears to remain at rest at present respirations are even and unlabored patient appears in no distress.
[2024-02-17 06:19] VITALS: RESP 16
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
[2024-02-17] MEDS: LORazepam 1 MG TABLET PO ×3 (10:05→20:53)
[2024-02-17] MEDS: Amphetamine Mixed Salts 20 MG TABLET PO (10:05)
[2024-02-17] MEDS: cloNIDine HCL 0.1 MG TABLET 0.3 MG PO ×3 (10:05→20:52)
[2024-02-17 10:12] VITALS: BP 141/97; PULSE 76; RESP 18; TEMP 36.6; O2SAT 100
[2024-02-17 10:15] VITALS: BP 141/97; PULSE 76
[2024-02-17] MEDS: VerapamiL HCL SR 180 MG TABLET.ER PO ×2 (10:15→20:52)
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
[2024-02-17 15:58] VITALS: BP 121/68; PULSE 65; RESP 15; TEMP 36.6; O2SAT 98
--- NOTE | 2024-02-17 19:28 | PC.NURSE ---
patient appears to remain at rest at present respirations are even and unlabored patient appears in no distress.
--- NOTE | 2024-02-18 | ECG_ITS ---
Test Reason : CHECK FOR PROLONGED QTC Blood Pressure : / mmHG Vent. Rate : 077 BPM Atrial Rate : 077 BPM P-R Int : 238 ms QRS Dur : 076 ms QT Int : 380 ms P-R-T Axes : 060 -19 016 degrees QTc Int : 430 ms Artifact in tracing Sinus rhythm with 1st degree A-V block Minimal voltage criteria for LVH, may be normal variant ( R in aVL ) Inferior infarct (cited on or before 13-JAN-2019) Anteroseptal infarct (cited on or before 13-JAN-2019) Abnormal ECG When compared with ECG of 28-JUN-2021 10:36, OR interval has increased Referred By: Generic ED Physician Electronically Signed By:CAIN SAVAGE
[2024-02-18 01:40] VITALS: BP 143/74; PULSE 61; RESP 16; TEMP 36.4; O2SAT 99
[2024-02-18 08:29] VITALS: BP 115/72; PULSE 65; RESP 14; TEMP 36.3; O2SAT 99
[2024-02-18] MEDS: Amphetamine Mixed Salts 20 MG TABLET PO (09:23)
[2024-02-18] MEDS: LORazepam 1 MG TABLET PO ×3 (09:23→21:09)
[2024-02-18] MEDS: cloNIDine HCL 0.1 MG TABLET 0.3 MG PO ×3 (09:24→21:10)
[2024-02-18] MEDS: VerapamiL HCL SR 180 MG TABLET.ER PO ×2 (09:24→21:10)
--- NOTE | 2024-02-18 09:32 | MHC.CM.ED ---
Patient remains in ER BH pod. Received notification from Ana farm instructor, that patient will be admitted to inpatient tera-psych. Camila of Elder Protective Services made aware via telephone at [phone] ext [phone]. Case Management consult deferred at this time.
[2024-02-18 10:37] LABS: Anion Gap 12 (12-20); Blood Urea Nitrogen 23 mg/dL (9-16); Calcium 9.5 mg/dL (8.4-10.2); Carbon Dioxide 28 mmol/L (22-29); Chloride 104 mmol/L (96-108); Creatinine Clr Calc Pharmacy 47.7; Estimated Glomerular Filt Rate > 60; Glucose Random 97 mg/dL (60-115); Sodium 139 mmol/L (135-145)
[2024-02-18 10:45] LABS: B Type Natriuretic Peptide 121 pg/mL (<100); B Type Natriuretic Peptide 132 pg/mL (<100)
[2024-02-18 10:46] LABS: Troponin-I High Sensitivity < 2.7 ng/L (<3.5-17.0)
--- NOTE | 2024-02-18 13:22 | MHC.CARE ---
The RAD Team conducted a [place] bed search today. [facility], [place], [facility], [facility], [facility], [facility], [place], [facility],[place] and [place] were all full. The bed search will resume in the morning if deemed necessary.
[2024-02-18 15:27] VITALS: BP 130/85; PULSE 70; RESP 16; TEMP 37; O2SAT 99
--- NOTE | 2024-02-18 21:14 | PC.NURSE ---
pt medicated per MAR, resting comfortably in bed at this time. no needs or complaints
--- NOTE | 2024-02-18 22:46 | PHA.MEDREC ---
Pharmacy Consult ? Medication Reconciliation Pharmacy has completed the medication reconciliation. Pharmacy reviewed Med Rec
[2024-02-19 02:48] VITALS: BP 159/87; PULSE 78; RESP 16; TEMP 36.4; O2SAT 97
--- NOTE | 2024-02-19 07:05 | PC.NURSE ---
Assumed care of patient at 0645. Patient is observed resting quietly in their room. No signs of distress observed, breathing is even and unlabored.
[2024-02-19] MEDS: cloNIDine HCL 0.1 MG TABLET 0.3 MG PO ×3 (09:24→21:39)
[2024-02-19] MEDS: Amphetamine Mixed Salts 20 MG TABLET PO (09:25)
[2024-02-19] MEDS: VerapamiL HCL SR 180 MG TABLET.ER PO ×2 (09:25→21:40)
[2024-02-19] MEDS: LORazepam 1 MG TABLET PO (09:25)
[2024-02-19 15:16] VITALS: BP 152/72; PULSE 67; RESP 15; TEMP 2; TEMP 35.6; O2SAT 100
[2024-02-19 15:58] VITALS: BMI 21.7
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
[2024-02-19] MEDS: LORazepam 0.5 MG TABLET PO ×2 (17:31→21:40)
--- NOTE | 2024-02-19 17:48 | PC.ADMIT ---
Pt arrived on the unit at 1500 via w/c. She is here on a CV. Pt arrived in [facility] ED d/t BL leg pain and swelling. While there, she made SI statements and therefore was admitted onto S1. Pt is currently seda for safety. On 5 minute checks. Pt is hyperverbal, has a flight of ideas, can become quite irritable at times. She is insistent that she arrived to the ED with a cell phone. This newswriter did not see a cell phone in belongings when she arrived. The ED pt belongings documentation states that she did not have a cell phone, and this newswriter called ED and spoke to staff who confirmed this information. Upon skin check, it was noted that pt has several patches of reddened skin that has been scratched (eczema?). Pt positive for benzo's on toxicology screening. Upon medication verification process, pt had lorazepam bottle with Xanax pills in it. Pt appears to jump to worst case scenerio during conversations. No bx issues while in ED.
[2024-02-19 20:00] VITALS: BP 163/76; PULSE 84; RESP 18; TEMP 36.9; O2SAT 99
[2024-02-19 21:39] VITALS: BP 163/76
[2024-02-20 08:04] VITALS: BP 145/65; PULSE 67; RESP 18; TEMP 36.8; O2SAT 98
[2024-02-20 08:10] VITALS: BP 145/65; PULSE 67
[2024-02-20] MEDS: cloNIDine HCL 0.1 MG TABLET 0.3 MG PO ×3 (08:10→20:46)
[2024-02-20] MEDS: VerapamiL HCL SR 180 MG TABLET.ER PO ×2 (08:10→20:47)
[2024-02-20] MEDS: LORazepam 0.5 MG TABLET PO (08:11)
[2024-02-20 09:06] LABS: Alanine Aminotransferase 14 U/L (0-31); Albumin Level 3.9 g/dL (3.5-5.0); Alkaline Phosphatase 87 U/L (39-117); Anion Gap 13 (12-20); Aspartate Amino Transferase 17 U/L (5-31); Bilirubin Total 0.4 mg/dL (0.0-1.0); Blood Urea Nitrogen 23 mg/dL (9-16); Calcium 9.7 mg/dL (8.4-10.2); Carbon Dioxide 27 mmol/L (22-29); Chloride 106 mmol/L (96-108); Cholesterol 176 mg/dL (<200); Creatinine Clr Calc Pharmacy 51.1; Estimated Glomerular Filt Rate > 60; Glucose Fasting 106 mg/dL (60-99); HDL Cholesterol 64 mg/dL (>40); LDL Cholesterol Calculated 93 mg/dL (<100); Potassium 4.6 mmol/L (3.3-5.1); Sodium 141 mmol/L (135-145); Total Protein 7.5 g/dL (6.5-8.0); Triglycerides 99 mg/dL (<150)
[2024-02-20 09:22] LABS: Thyroid Stimulating Hormone 5.02 uIU/mL (0.32-4.0)
[2024-02-20 09:27] LABS: Vitamin B12 335 pg/mL (200-900)
[2024-02-20 10:22] LABS: Estimated Average Glucose 117 mg/dL; Hemoglobin A1c % 5.7 % (<6.0)
[2024-02-20] MEDS: Amphetamine Mixed Salts 20 MG TABLET PO (11:47)
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
[2024-02-20 15:26] VITALS: BP 122/65
[2024-02-20] MEDS: LORazepam 1 MG TABLET PO ×2 (15:30→20:47)
[2024-02-20 20:00] VITALS: BP 146/63; PULSE 66; RESP 16; TEMP 36.3; O2SAT 97
[2024-02-21 07:34] VITALS: BP 108/64; PULSE 66; RESP 18; TEMP 36.3; O2SAT 96
[2024-02-21 08:17] VITALS: BP 108/64; PULSE 66
[2024-02-21] MEDS: LORazepam 1 MG TABLET PO ×3 (08:17→20:38)
[2024-02-21] MEDS: Amphetamine Mixed Salts 20 MG TABLET PO (08:17)
[2024-02-21] MEDS: VerapamiL HCL SR 180 MG TABLET.ER PO ×2 (08:17→20:38)
[2024-02-21] MEDS: cloNIDine HCL 0.1 MG TABLET 0.3 MG PO ×3 (08:17→20:38)
[2024-02-21] MEDS: Magnesium Hydrox/Alum Hydrox 30 ML ORAL.SUSP PO (08:43)
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
[2024-02-21 15:16] VITALS: BP 133/81
[2024-02-21 15:22] VITALS: BP 133/81
[2024-02-21 20:00] VITALS: BP 121/58; PULSE 66; RESP 18; TEMP 36.6; O2SAT 98
[2024-02-22 08:26] VITALS: BP 124/68; PULSE 77; RESP 18; TEMP 36.2; O2SAT 100
[2024-02-22] MEDS: Amphetamine Mixed Salts 20 MG TABLET PO (08:29)
[2024-02-22] MEDS: LORazepam 1 MG TABLET PO ×3 (08:29→20:37)
[2024-02-22] MEDS: cloNIDine HCL 0.1 MG TABLET 0.3 MG PO ×3 (08:30→20:37)
[2024-02-22 09:48] VITALS: BP 132/78; PULSE 77
[2024-02-22] MEDS: Magnesium Hydrox/Alum Hydrox 30 ML ORAL.SUSP PO (09:51)
[2024-02-22] MEDS: VerapamiL HCL SR 180 MG TABLET.ER PO ×2 (09:51→20:37)
[2024-02-22 14:20] VITALS: BP 139/68; PULSE 67
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
[2024-02-22 20:00] VITALS: BP 142/77; PULSE 77; RESP 18; TEMP 36.4; O2SAT 96
[2024-02-23 08:03] VITALS: BP 127/65; PULSE 68; RESP 15; TEMP 36.4; O2SAT 99
[2024-02-23] MEDS: cloNIDine HCL 0.1 MG TABLET 0.3 MG PO ×3 (08:05→20:45)
[2024-02-23] MEDS: Amphetamine Mixed Salts 20 MG TABLET PO (08:05)
[2024-02-23] MEDS: LORazepam 1 MG TABLET PO ×3 (08:06→20:45)
[2024-02-23 08:32] LABS: TSH reflex Free T4 4.03 uIU/mL (0.32-4.0)
[2024-02-23 09:09] LABS: Free T4 (Free Thyroxine) 0.82 ng/dL (0.71-1.85)
[2024-02-23 10:01] VITALS: BP 127/65; PULSE 74
[2024-02-23] MEDS: VerapamiL HCL SR 180 MG TABLET.ER PO ×2 (10:01→21:50)
[2024-02-23 15:56] VITALS: BP 162/77
[2024-02-23 19:45] VITALS: BP 165/78; PULSE 71; RESP 16; TEMP 36.2; O2SAT 98
[2024-02-23 21:50] VITALS: BP 165/78; PULSE 71
[2024-02-24 08:00] VITALS: BP 144/79; PULSE 92; RESP 16; TEMP 36.1; O2SAT 97
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
[2024-02-24 09:03] VITALS: BP 144/79
[2024-02-24] MEDS: cloNIDine HCL 0.1 MG TABLET 0.3 MG PO ×3 (09:03→21:43)
[2024-02-24] MEDS: VerapamiL HCL SR 180 MG TABLET.ER PO ×2 (09:03→21:44)
[2024-02-24] MEDS: Amphetamine Mixed Salts 20 MG TABLET PO (09:03)
[2024-02-24] MEDS: LORazepam 1 MG TABLET PO ×3 (09:04→21:42)
[2024-02-24] MEDS: Magnesium Hydrox/Alum Hydrox 30 ML ORAL.SUSP PO (09:19)
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
[2024-02-24 15:06] VITALS: BP 136/80
[2024-02-24] MEDS: Sennosides/Docusate Sodium TABLET 1 TAB PO ×2 (15:06→21:42)
[2024-02-24 20:00] VITALS: BP 124/60; PULSE 74; RESP 17; TEMP 36.3; O2SAT 97
[2024-02-24 21:43] VITALS: BP 124/60
[2024-02-24 21:44] VITALS: BP 124/60; PULSE 74
[2024-02-24] MEDS: Hydrocortisone 1 % Ointment 28.35 GM TUBE 1 APPL TOPICAL (21:44)
[2024-02-25 08:00] VITALS: BP 119/57; PULSE 74; RESP 18; TEMP 36.5; O2SAT 99
[2024-02-25] MEDS: VerapamiL HCL SR 180 MG TABLET.ER PO (08:55)
[2024-02-25] MEDS: Amphetamine Mixed Salts 20 MG TABLET PO (08:55)
[2024-02-25] MEDS: LORazepam 1 MG TABLET PO (08:55)
[2024-02-25] MEDS: Sennosides/Docusate Sodium TABLET 1 TAB PO (08:55)
[2024-02-25] MEDS: cloNIDine HCL 0.1 MG TABLET 0.3 MG PO (08:55)
[2024-02-25] MEDS: Hydrocortisone 1 % Ointment 28.35 GM TUBE 1 APPL TOPICAL (09:03)
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
--- NOTE | 2024-02-25 13:23 | PC.NURSE ---
A & O X 3. Poor insight into situation. Denies depression, SI, HI, or perceptual disturbances. Unable to rate anxiety, but is visibly anxious r/t discharge. All follow up instructions reviewed with pt. several times. She would napaimute back to the beginning and wish to have everything gone over again. Pt. signed for her meds that had been stored in pharmacy. Became angry when RN would not go through them repeatedly. Rx's had been sent to her preferred pharmacy, as confirmed by social media designer, but she is now wishing to change her mind, but was counseled this was not possible at this time. Pt. refusing to leave unless we find her a phone kiln charger but was counseled that she would have to buy her own. She became loud and belligerent but agreed to leave the unit when staff were about to call for security guards dispatcher. Pt. ambulated off of unit at 13:00 accompanied by 2 staff and was met at entrance by Ludwig day.
== END 2024-02-25 13:00 | disposition home or self-care (01) | DRG 885 ==
LOC: HO.ED 02-17 07:37 → HO.PGERI 02-19 14:17
PROVIDERS: Emergency Medicine; Internal Medicine; Admitting Provider Social Worker; Emergency Provider Emergency Medicine Emergency Medical Services; PCP Family Medicine; Visit Provider Social Worker
DX: F39 Unspecified mood [affective] disorder (principal); R45.851 Suicidal ideations; Z87.891 Personal history of nicotine dependence; Z79.899 Other long term (current) drug therapy
CPT/HCPCS: 36415; 80048; 80053; 80061; 80143; 80179; 80307; 81001; 82607; 83036; 83880; 84439; 84443; 84484; 85025; 87086; 93005; 99285; S9485

== ENCOUNTER → 2024-02-17 14:03 | Outpatient (BNV) | payer MEDICARE, SELFPAY | PROVIDERS: Admitting Provider Social Worker; Emergency Provider Emergency Medicine Emergency Medical Services; PCP Family Medicine; Visit Provider Psychiatry & Neurology Psychiatry | DX: F39 Unspecified mood [affective] disorder (principal) | CPT/HCPCS: 90792; 99231; 99232; 99239 ==

== ENCOUNTER → 2024-02-18 12:52 | Outpatient (BNV) | payer MEDICARE, SELFPAY | PROVIDERS: Emergency Provider Emergency Medicine Emergency Medical Services; PCP Family Medicine; Visit Provider Internal Medicine | DX: R94.31 Abnormal electrocardiogram [ECG] [EKG] (principal) | CPT/HCPCS: 93010 ==

== ENCOUNTER 2024-04-11 15:04 | Outpatient (REF) | payer MEDICARE, SELFPAY ==
[2024-04-12 11:26] LABS: Influenza A PCR NEGATIVE (Negative); Influenza B PCR NEGATIVE (Negative); Resp Syncy Virus RNA Qual PCR NEGATIVE (Negative); SARS COV2 PCR INHOUSE NEGATIVE (Negative)
== END 2024-04-11 15:05 | disposition home or self-care (01) ==
LOC: HO.LAB 15:04
PROVIDERS: Registered Nurse; PCP Family Medicine
DX: J06.9 Acute upper respiratory infection, unspecified (principal)
CPT/HCPCS: 0241U; 99212

== ENCOUNTER 2024-04-11 15:04 | Outpatient (AMB) | payer MEDICARE, SELFPAY ==
--- NOTE | 2024-04-11 15:23 | AM.OFFWIN_ITS ---
Intake Vital Signs 04/11/24 15:25 Height 5 ft 3 in Weight 112 lb BMI 19.8 BP 128/84 Blood Pressure Location Lt brachial Position Sitting Pulse 79 Pulse Source Pulse Oximeter Temp 98.3 F Temp Source Oral Pulse Oximetry (%) 97 Oxygen Delivery Method Room Air Intake Visit Reasons: EP fever, cough, runny nose Intake Note: pt c/o fever, cough and runny nose. Started Thursday Patient Tobacco Use Status: Former Tobacco user Allergies Penicillins [PENICILLINS] Allergy (Unknown, Verified 04/11/24 15:30) UNKNOWN-SICK DAYS LATER Sulfa (Sulfonamide Antibiotics) [SULFA (SULFONAMIDE ANTIBIOTICS)] Allergy (Unknown, Verified 04/11/24 15:30) UNKNOWN- SICK DAYS LATER, hives acetaminophen [ACETAMINOPHEN] Adverse Reaction (Severe, Verified 04/11/24 15:30) BAD EFFECTS Do you need a note to return to daycare/school/sports/work: No HPI HPI Comments History of Present Illness Details Patient is a 73-year-old female complaining of 3 days of a runny nose, productive cough with thick white mucus and some shortness of breath. She denies any sinus pain, ear pain, fevers or chills or nausea vomiting or diarrhea. She has been eating and drinking normally and has not taken any liqg-aye-fjzjcyp medication to make herself feel better. [facility] Medical History Pulmonary nodule 1 cm or greater in diameter PFO (patent foramen ovale) Surgical History History of wisdom tooth extraction Family History Father No problems noted. Mother No problems noted. Social History Household Members: Family Housing: Apartment Do you presently have visiting nurse or other home services: No Alcohol intake: current Alcohol intake frequency: holidays/special occasions only Patient Tobacco Use Status: Former Tobacco user Tobacco use type: Cigarette Cigarettes Per Day: 20 Years Smoked: 13 e-Cigarette/Vaping Use: Never Used Second Hand Smoke Exposure: No service: No Current occupational status: retired Current occupation: right hand dominant Sexual orientation: Straight/Heterosexual Cognitive needs: No Hearing needs: No Vision needs: No Review of Systems Const All systems reviewed & are unremarkable except as noted in HPI and below Physical Exam Vital Signs: Last Vital Signs Temp 98.3 F 04/11/24 15:25 Pulse 79 04/11/24 15:25 BP 128/84 04/11/24 15:25 Pulse Ox 97 04/11/24 15:25 Oxygen Delivery Method Room Air 04/11/24 15:25 BMI result Body Mass Index 19.8 Const General: cooperative, healthy appearing, comfortable and no acute distress Orientation/consciousness: patient oriented x3 Limitations: no limitations HEENT Head: Yes normal to inspection Ears: hearing grossly normal bilaterally, external ears normal and TM's normal bilaterally General nose exam: Normal external nose present, Normal nares present and No nasal discharge present Face and sinus: Yes normal facial exam and Yes sinuses nontender Mouth: Normal oral and palatal mucosa present and moist mucous membranes Throat: Yes tonsils normal, Yes uvula midline and Yes posterior oropharynx abnormal (Erythema) Eyes General: appearance normal, both eyes and all related structures Neck Neck: Yes normal visual inspection Resp Effort & Inspection: normal respiratory effort, able to speak in complete sentences, Actively coughing, no respiratory distress, not tachypneic, no tripod positioning and no use of accessory muscles Auscultation: clear to auscultation bilaterally Cardio Rate: regular rate Rhythm: regular rhythm Heart sounds: normal S1 and S2 Skin General skin exam: no rashes or lesions noted Neuro General: patient oriented x3 Extrem General: Yes normal to inspection and Yes no clubbing, cyanosis or edema Assessment & Plan Assessment & Plan (1) URI (upper respiratory infection): Code(s): J06.9 - Acute upper respiratory infection, unspecified Qualifiers: URI type: unspecified URI Qualified Code(s): J06.9 - Acute upper r espiratory infection, unspecified Plan: Vital signs are stable and patient is well-appearing, lung sounds are clear. Recommended she treat herself with [id number] medications. Tested for flu COVID and RSV, we did discuss the use of Paxlovid but decided it was not a good choice for her as she does not react well to strong medications. Plan See above Orders: Orders SARS-CoV2/FLU/RSV Today J06.9 - Acute upper respiratory infection, unspecified Coding Level of Care Code Est Pt Level 3 (36364) Diagnoses Upper respiratory tract infection, unspecified type J06.9 URI type: unspecified URI
[2024-04-11 15:25] VITALS: BP 128/84; PULSE 79; TEMP 36.8; O2SAT 97; BMI 19.8
== END 2024-04-11 16:32 | disposition home or self-care (01) ==
PROVIDERS: PCP Family Medicine; Visit Provider Physician Assistant
DX: J06.9 Acute upper respiratory infection, unspecified (principal)

== ENCOUNTER 2024-04-20 12:14 | Outpatient (AMB) | payer MEDICARE, SELFPAY ==
[2024-04-20 12:45] VITALS: BP 118/64; PULSE 63; RESP 12; TEMP 36.4; O2SAT 96; BMI 20.3
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
== END 2024-04-20 13:42 | disposition home or self-care (01) ==
LOC: HO.HMCFM 12:14
PROVIDERS: PCP Family Medicine; Visit Provider Family Medicine
DX: F41.9 Anxiety disorder, unspecified (principal); S42.352A Displaced comminuted fracture of shaft of humerus, left arm, initial encounter for closed fracture; R21 Rash and other nonspecific skin eruption

== ENCOUNTER → 2024-04-20 12:14 | Outpatient (BNVA) | payer MEDICARE, SELFPAY | PROVIDERS: PCP Family Medicine; Visit Provider Family Medicine | DX: F41.9 Anxiety disorder, unspecified (principal); R21 Rash and other nonspecific skin eruption; S42.352D Displaced comminuted fracture of shaft of humerus, left arm, subsequent encounter for fracture with routine healing | CPT/HCPCS: 36415; 80053; 84439; 84443; 84480; 85025; 85652; 86038; 86141; 99212 ==

== ENCOUNTER 2024-04-20 13:56 | Outpatient (REF) | payer MEDICARE, SELFPAY ==
[2024-04-20 17:41] LABS: MANUAL DIFF FLAG NO
[2024-04-20 17:43] LABS: Basophils Percent Auto 0.6 % (0-2); Eosinophils Absolute Auto 0.3 X10*3/uL (0.0-0.4); Eosinophils Percent Auto 4.5 % (0-4); Hemoglobin 12.7 g/dl (12.0-16.0); Imm Gran Abs Auto 0.01 X10*3/uL (0.00-0.03); Imm Gran Pct Auto 0.2 % (0.0-0.4); Lymphocytes Absolute Auto 1.1 X10*3/uL (1.2-4.9); Lymphocytes Percent Auto 18.4 % (20-40); Mean Corpuscular HGB Conc 33.4 g/dl (31.0-35.0); Mean Corpuscular Hemoglobin 30.2 pg (27.0-33.0); Mean Corpuscular Volume 90.3 fL (80.0-98.0); Mean Platelet Volume 10.7 fL (9.4-12.3); Monocytes Absolute Auto 0.4 X10*3/uL (0.1-1.2); Monocytes Percent Auto 6.3 % (2-11); Neutrophils Absolute Auto 4.4 x10*3/uL (2.0-8.3); Platelet Count 256 X10*3/uL (160-400); Red Blood Count 4.21 X10*6/uL (4.20-5.50); Red Cell Distribution Width 12.9 % (11.0-16.0); White Blood Count 6.2 X10*3/uL (4.8-10.8)
[2024-04-20 18:05] LABS: Alanine Aminotransferase 9 U/L (0-31); Albumin Level 3.9 g/dL (3.5-5.0); Alkaline Phosphatase 82 U/L (39-117); Anion Gap 14 (12-20); Aspartate Amino Transferase 16 U/L (5-31); Bilirubin Total 0.2 mg/dL (0.0-1.0); Blood Urea Nitrogen 15 mg/dL (9-16); Calcium 9.3 mg/dL (8.4-10.2); Carbon Dioxide 26 mmol/L (22-29); Chloride 102 mmol/L (96-108); Estimated Glomerular Filt Rate > 60; Glucose Random 98 mg/dL (60-115); Potassium 3.7 mmol/L (3.3-5.1); Sodium 138 mmol/L (135-145); Total Protein 7.6 g/dL (6.5-8.0)
[2024-04-20 18:20] LABS: Free T4 (Free Thyroxine) 0.92 ng/dL (0.71-1.85); Thyroid Stimulating Hormone 5.64 uIU/mL (0.32-4.0)
[2024-04-20 18:40] LABS: Erythrocyte Sedimentation Rate 13 MM/HR (0-20)
[2024-04-21 06:24] LABS: Triiodothyronine T3 Total 135 ng/dL (76-181)
[2024-04-21 08:14] LABS: CRP High Sensitivity 0.9 mg/L
[2024-04-22 11:14] LABS: Anti Nuclear Antibody Screen NEGATIVE (NEGATIVE)
== END 2024-04-20 13:57 | disposition home or self-care (01) ==
LOC: HO.WFDLDS 13:56
PROVIDERS: Visit Provider Family Medicine
DX: R21 Rash and other nonspecific skin eruption (principal)
CPT/HCPCS: 36415; 80053; 84439; 84443; 84480; 85025; 85652; 86038; 86141

== ENCOUNTER 2024-04-26 10:14 | Outpatient (AMB) | payer MEDICARE, SELFPAY ==
--- NOTE | 2024-04-26 10:15 | MHC.OFFVIS ---
Vital Signs 04/26/24 10:19 Height 5 ft 3 in Weight 112 lb 14.027 oz BMI 20.0 BP 112/62 Blood Pressure Location Rt brachial Position Sitting Pulse 79 Pulse Source Pulse Oximeter Pulse Oximetry (%) 98 Oxygen Delivery Method Room Air Intake Visit Reasons: Rash/CM Intake Note: Patient presents for rash. Allergies Penicillins [PENICILLINS] Allergy (Unknown, Verified 04/11/24 15:30) UNKNOWN-SICK DAYS LATER Sulfa (Sulfonamide Antibiotics) [SULFA (SULFONAMIDE ANTIBIOTICS)] Allergy (Unknown, Verified 04/11/24 15:30) UNKNOWN- SICK DAYS LATER, hives acetaminophen [ACETAMINOPHEN] Adverse Reaction (Severe, Verified 04/11/24 15:30) BAD EFFECTS Medication List - Last Reconciled 04/26/24 by Margarita Hernandez MD clonidine HCl 0.3 mg PO TID dextroamphetamine-amphetamine 20 mg (Adderall) 20 mg PO DAILY 30 days hydrocortisone 1% 1 appl topical BID lorazepam 1 mg PO TID 30 days sennosides-docusate sodium 8.6-50 mg (Senna Plus) 1 tab PO BID HPI Comments Details: This is a 73-year-old female with history of ADHD who presents for evaluation of multiple complaints. She states that she believes she has some underlying autoimmune issue. She states that she would get episodes of her fingers getting crooked, her skin does not move she has had rashes for many years. She itches them at night. The rashes are mostly on her feet. She has bilateral leg swelling. She states that she was told she has heart failure. She has history of PFO. She also states that she had an eye infection in the past, she was told that she has a corneal ulcer and she was treated with antibiotics and antifungal eyedrops. He is unaware of any family history of an autoimmune rheumatic disease. She is allergic to multiple antibiotics including fluoroquinolones [facility] Medical History Pulmonary nodule 1 cm or greater in diameter PFO (patent foramen ovale) Surgical History History of wisdom tooth extraction Family History Father No problems noted. Mother No problems noted. Social History Household Members: Family Housing: Apartment Do you presently have visiting nurse or other home services: No Alcohol intake: current Alcohol intake frequency: holidays/special occasions only Patient Tobacco Use Status: Former Tobacco user Tobacco use type: Cigarette Cigarettes Per Day: 20 Years Smoked: 13 e-Cigarette/Vaping Use: Never Used Second Hand Smoke Exposure: No service: No Current occupational status: retired Current occupation: right hand dominant Sexual orientation: Straight/Heterosexual Cognitive needs: No Hearing needs: No Vision needs: No Female Reproductive History Menstrual Date of last menstrual period: 07/27/92 Review of Systems ENT Reports dry mouth Musc Reports joint swelling Skin/Breast Reports pruritus, Reports lesions and Reports rash Physical Exam Vital Signs: Last Vital Signs Pulse 79 04/26/24 10:19 BP 112/62 04/26/24 10:19 Pulse Ox 98 04/26/24 10:19 Oxygen Delivery Method Room Air 04/26/24 10:19 BMI result Body Mass Index 20.0 Const General: cooperative, healthy appearing and comfortable Nutritional Appearance: average body habitus Orientation/consciousness: patient oriented x3 Limitations: no limitations HEENT Other: Mildly dry oral mucosa Head: Yes normocephalic and Yes atraumatic Resp Effort & Inspection: normal respiratory effort and able to speak in complete sentences Skin Other: Multiple excoriated rashes both upper extremities Bilateral lower extremity rashes in different stages of healing most of them are crusted over, some excoriations Neuro General: patient oriented x3 Extrem Other: Mild osteoarthritic changes of both hands with no active synovitis Normal nailfold capillaroscopy Normal range of motion of hands,, wrists, elbows and shoulders without pain Bilateral lower limb pitting edema Assessment & Plan Assessment & Plan (1) Rash: Code(s): R21 - Rash and other nonspecific skin eruption Category: Medical Plan: This is a 73-year-old female who presents for evaluation of an underlying autoimmune rheumatic condition. Patient has numerous complaints that are very nonspecific. I do not see any evidence of an autoimmune rheumatic disease upon my evaluation. Patient had comprehensive serologies in the past that were unremarkable with normal inflammatory markers. Follow-up with PCP Plan I spent 30 minutes reviewing patient's chart, evaluating patient, counseling patient and documenting in the chart Coding Level of Care Code New Pt Level 3 (38566) Diagnoses Rash R21
[2024-04-26 10:19] VITALS: BP 112/62; PULSE 79; O2SAT 98
== END 2024-04-26 10:47 | disposition home or self-care (01) ==
PROVIDERS: PCP Family Medicine; Visit Provider Student in an Organized Health Care Education/Training Program
DX: R21 Rash and other nonspecific skin eruption (principal)
CPT/HCPCS: 99203

== ENCOUNTER → 2024-04-26 10:14 | Outpatient (BNVA) | payer MEDICARE, SELFPAY | PROVIDERS: PCP Family Medicine; Visit Provider Student in an Organized Health Care Education/Training Program | DX: R21 Rash and other nonspecific skin eruption (principal) | CPT/HCPCS: 99202 ==

== ENCOUNTER 2024-05-20 10:41 | Outpatient (AMB) | payer MEDICARE, SELFPAY ==
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
[2024-05-20 10:53] VITALS: BP 133/78; PULSE 79; RESP 14; TEMP 36.7; O2SAT 98; BMI 20.7
== END 2024-05-20 12:02 | disposition home or self-care (01) ==
PROVIDERS: PCP Family Medicine; Visit Provider Family Medicine
DX: R21 Rash and other nonspecific skin eruption (principal); F41.9 Anxiety disorder, unspecified; R51.9 Headache, unspecified; I10 Essential (primary) hypertension; Z59.819 Housing instability, housed unspecified

== ENCOUNTER → 2024-05-20 10:41 | Outpatient (BNVA) | payer MEDICARE, SELFPAY | PROVIDERS: PCP Family Medicine; Visit Provider Family Medicine | DX: R21 Rash and other nonspecific skin eruption (principal); F41.9 Anxiety disorder, unspecified; R51.9 Headache, unspecified; I10 Essential (primary) hypertension; Z59.819 Housing instability, housed unspecified | CPT/HCPCS: 96127; 99212 ==

== ENCOUNTER 2024-10-17 13:08 | Outpatient (REF) | payer MEDICARE, SELFPAY ==
[2024-10-17 14:20] LABS: MANUAL DIFF FLAG NO
[2024-10-17 14:26] LABS: Appearance Urine Clear; Color Urine Dark Yellow; Glucose Urine UA Negative (Negative); Leukocyte Esterase Urine Small (1+) (Negative); Nitrite Urine Negative (Negative); PH 5.5 (5.0-9.0); Specific Gravity - Urine 1.025 (1.005-1.025); UMIC TRIGGER UA YES; Urine Blood Negative (Negative); Urine Ketones Trace mg/dL (Negative); Urine Protein 30 (1+) mg/dL (Neg-Trace)
[2024-10-17 14:26] LABS: Basophils Percent Auto 0.8 % (0-2); Eosinophils Absolute Auto 0.1 X10*3/uL (0.0-0.4); Eosinophils Percent Auto 3.7 % (0-4); Hematocrit 35.4 % (37.0-47.0); Hemoglobin 11.8 g/dl (12.0-16.0); Lymphocytes Percent Auto 27.7 % (20-40); Mean Corpuscular HGB Conc 33.3 g/dl (31.0-35.0); Mean Corpuscular Hemoglobin 30.5 pg (27.0-33.0); Mean Corpuscular Volume 91.5 fL (80.0-98.0); Mean Platelet Volume 10.1 fL (9.4-12.3); Monocytes Absolute Auto 0.5 X10*3/uL (0.1-1.2); Neutrophils Absolute Auto 2.1 x10*3/uL (2.0-8.3); Neutrophils Percent Auto 55.8 % (45-73); Platelet Count 209 X10*3/uL (160-400); Red Blood Count 3.87 X10*6/uL (4.20-5.50); Red Cell Distribution Width 12.7 % (11.0-16.0); White Blood Count 3.8 X10*3/uL (4.8-10.8)
[2024-10-17 14:32] LABS: Bacteria Urine None Seen (None Seen); Hyaline Casts Urine 0-2 /LPF (0-2); RBC Urine 0-2 /HPF (0-2); WBC Urine 21-50 /HPF (0-5)
[2024-10-17 14:48] LABS: Alanine Aminotransferase 27 U/L (0-31); Albumin Level 3.7 g/dL (3.5-5.0); Alkaline Phosphatase 80 U/L (39-117); Anion Gap 11 (12-20); Aspartate Amino Transferase 28 U/L (5-31); Bilirubin Total 0.2 mg/dL (0.0-1.0); Blood Urea Nitrogen 27 mg/dL (9-16); Carbon Dioxide 28 mmol/L (22-29); Chloride 108 mmol/L (96-108); Cholesterol 133 mg/dL (<200); Estimated Glomerular Filt Rate > 60; Glucose Fasting 107 mg/dL (60-99); HDL Cholesterol 58 mg/dL (>40); LDL Cholesterol Calculated 60 mg/dL (<100); Potassium 3.5 mmol/L (3.3-5.1); Sodium 143 mmol/L (135-145); Total Protein 6.9 g/dL (6.5-8.0); Triglycerides 79 mg/dL (<150)
[2024-10-17 15:03] LABS: Free T4 (Free Thyroxine) 1.09 ng/dL (0.71-1.85); Thyroid Stimulating Hormone 3.31 uIU/mL (0.32-4.0); Vitamin D 25-OH Total 7.4 ng/mL (>30)
[2024-10-17 15:05] LABS: Creatinine Urine 196.53 mg/dL; Microalbum/Creatinine Ratio Ur 27.4 ug/mg cr (<30)
[2024-10-17 15:42] LABS: Folate 6.9 ng/mL (> or = 4.0); Vitamin B12 445 pg/mL (200-900)
[2024-10-18 07:42] LABS: Triiodothyronine T3 Total 134 ng/dL (76-181)
== END 2024-10-17 13:09 | disposition home or self-care (01) ==
LOC: HO.WFDLDS 13:08
PROVIDERS: Visit Provider Family Medicine
DX: Z00.00 Encounter for general adult medical examination without abnormal findings (principal); E03.9 Hypothyroidism, unspecified; I10 Essential (primary) hypertension; E55.9 Vitamin D deficiency, unspecified; E53.8 Deficiency of other specified B group vitamins
CPT/HCPCS: 36415; 80053; 80061; 81001; 82043; 82306; 82570; 82607; 82746; 84439; 84443; 84480; 85025

== ENCOUNTER 2025-03-12 15:49 | Emergency (ER) | payer MEDICARE, SELFPAY ==
--- NOTE | ~2025-03-12 | CT_ITS ---
CLINICAL HISTORY: fall, trauma CT head without contrast Comparison: CT/SR - CT HEAD WITHOUT IV CONTRAST - 11/17/23 12:48 EDT Findings: No intra-axial mass, midline shift, hydrocephalus, or acute hemorrhage. Diffuse volume loss. Periventricular and subcortical white matter hypoattenuation likely chronic small-vessel ischemic changes. Intracranial atherosclerosis. The visualized paranasal sinuses and mastoid air cells are normal. The orbits are unremarkable. No skull fracture. IMPRESSION: 1. No acute intracranial findings. This document has been electronically signed by: Coral Alexander MD on 03/12/2025 18:04:48
[2025-03-12 15:57] VITALS: BP 215/119; PULSE 97; RESP 18; O2SAT 97; BMI 21.9
--- NOTE | 2025-03-12 15:57 | ED.GENADULT ---
HPI - General Adult General Chief complaint: Dizziness Stated complaint: headaches, dizziness Time Seen by Provider: 03/12/25 22:07 Source: patient Mode of arrival: ambulatory Limitations: no limitations History of Present Illness ED Provider: HPI narrative: 74-year-old woman reports dizziness and headaches for over the past 1 year worsening in the last past 4-5 days, stop the verapamil on her own about a week ago and she is concerned that she has not intermittent bruising of as she reports no origin along her temples, no chest pain no shortness of breath no fevers or chills no visual changes. Related Data Previous Rx's ?Medication ?Instructions ?Recorded hydrocortisone 1 % topical cream 1 appl topical BID #28.35 grams 02/25/24 sennosides 8.6 mg-docusate sodium 1 tab PO BID #60 tabs 02/25/24 50 mg tablet (Senna Plus) cholecalciferol (vitamin D3) 1,250 1,250 mcg PO QWEEK 28 days #4 caps 01/11/25 mcg (50,000 unit) capsule clonidine HCl 0.3 mg tablet 0.3 mg PO TID #90 tabs 02/15/25 dextroamphetamine-amphetamine 20 20 mg PO DAILY 30 days #30 tabs 02/15/25 mg tablet (Adderall) lorazepam 1 mg tablet 1 mg PO TID 30 days #90 tabs 02/15/25 Allergies Allergy/AdvReac Type Severity Reaction Status Date / Time Penicillins (PENICILLINS) Allergy Unknown UNKNOWN-SICK Verified 03/12/25 16:00 DAYS LATER Sulfa (Sulfonamide Allergy Unknown UNKNOWN- Verified 03/12/25 16:00 Antibiotics) (SULFA SICK DAYS (SULFONAMIDE ANTIBIOTICS)) LATER, hives acetaminophen (ACETAMINOPHEN) AdvReac Severe BAD EFFECTS Verified 03/12/25 16:00 Review of Systems Constitutional: Constitutional: Reports as per [facility] Past Medical History Medical History Pulmonary nodule 1 cm or greater in diameter PFO (patent foramen ovale) Surgical History History of wisdom tooth extraction Family History Family History Father No problems noted. Mother No problems noted. Social History Social History Household Members: Family Housing: Apartment Do you presently have visiting nurse or other home services: No Alcohol intake: current Alcohol intake frequency: holidays/special occasions only Patient Tobacco Use Status: Former Tobacco user Tobacco use type: Cigarette Cigarettes Per Day: 20 Years Smoked: 13 e-Cigarette/Vaping Use: Never Used Second Hand Smoke Exposure: No Advance Directives: No Advance Directives Information Provided: Yes service: No Current occupational status: retired Current occupation: right hand dominant Sexual orientation: Straight/Heterosexual Cognitive needs: No Hearing needs: No Vision needs: No Physical Exam ED Vital Signs: Vital Signs - 24 hr 03/12/25 15:57 03/12/25 16:02 03/12/25 21:31 Temperature 98.3 F 98.5 F Pulse Rate 97 81 Respiratory Rate 18 16 Blood Pressure 215/119 H 176/115 H Pulse Oximetry 97 98 Oxygen Delivery Method Room Air Room Air BMI result Body Mass Index 21.9 Const Other: Gen: ?Overall well-appearing patient HEENT: PERRLA, EOMI, MMM, Neck: Supple, no LAD CV: RRR, no obvious murmurs appreciated Resp: ?No wheezing rales rhonchi no stridor moving air well Abd: ?Bowel sounds are present, no tenderness no rebound no rigidity MSK: FROM, strength 5/5 all extremities Skin: Warm, dry, intact, Neuro: ?Alert and oriented x3, moving upper and lower extremities symmetrically, no obvious facial asymmetry noted, no dysmetria, no sensory motor deficits, no tenderness along her temples no palpable vascular cords Psych; patient talks fast but is not overwhelmed and she is not disorganized as noted in triage note Course Course Course Narrative: Medical screening exam performed. Please refer to detailed history, exam, evaluation, and management by primary provider. Headaches for over 1 year, dizziness which she has a history of but worsening. Generalized weakness. Check labs, EKG. Medical Decision Making Medical Decision Making [facility] Narrative: See my differential as below, reassuringly patient has CT without any evidence for stroke, brain masses, she has no visual changes no temporal tenderness to suspect giant cell arteritis and no physical exam findings to suspect acute angle closure glaucoma, the rest of the blood work EKG has been reassuring On presentation she was also hypotensive without ECG changes to suspect underlying end-organ ischemia, no cardiac enzyme elevation, we will discuss with the patient to follow up with PCP and take her medications regular basis Differential Diagnosis Differential Diagnoses: The differential diagnosis associated with the presentation includes (Subarachnoid hemorrhage, cavernous venous thrombosis, acute angle closure glaucoma, temporal arteritis, meningitis, migraine headache, tension headache) Admission/Observation Consideration of admission/observation: Escalation of care including admission/observation considered (Physical examination was reassuring, workup including CT unremarkable, can follow up with the PCP on outpatient basis for MRI) 2022 Emergency Medicine Coding Guide from [employer] on 03/12/2025 All calculations should be rechecked by clinician prior to use RESULT SUMMARY: 5 Estimated Level of Service Problems: High (5) Risk: Moderate (4) Data: Extensive (5) NARRATIVE MDM: This patient's problem complexity is High as patient: with chronic illness(es) with severe exacerbation/progression/side effects. This patient's risk is Moderate due to: overall presentation requiring evaluation for a potentially Moderate-risk process. This patient's data complexity is Extensive due to: -multiple tests ordered/reviewed -independent interpretation of imaging or EKG INPUTS: Number and Complexity ?> 1 = 5: chronic illness w/severe exacerbation (a) Risk level ?> 3 = Moderate Tests ordered ?> 3 = >= Tests results reviewed (excluding labs) ?> 2 = 2 Prior external notes reviewed ?> 0 = 0 Assessment requiring and independent historian ?> 0 = No Independent interpretation of tests ?> 1 = Yes Discussed management/test interpretation w/external professional ?> 0 = No Lab Data [facility] Lab Attestation statement: I reviewed the patient's lab results. 03/12/25 16:24 03/12/25 16:24 Labs: Lab Results 03/12/25 Range/Units 16:24 WBC 3.6 L (4.8-10.8) X10*3/uL RBC 3.93 L (4.20-5.50) X10*6/uL Hgb 12.1 (12.0-16.0) g/dl Hct 34.8 L (37.0-47.0) % MCV 88.5 (80.0-98.0) fL MCH 30.8 (27.0-33.0) pg MCHC 34.8 (31.0-35.0) g/dl RDW 12.7 (11.0-16.0) % Plt Count 192 (160-400) X10*3/uL MPV 10.2 (9.4-12.3) fL Immature Gran % (Auto) 0.3 (0.0-0.4) % Neut % (Auto) 55.3 (45-73) % Lymph % (Auto) 28.6 (20-40) % [place] % (Auto) 11.4 H (2-11) % Eos % (Auto) 3.6 (0-4) % Baso % (Auto) 0.8 (0-2) % Lymph # (Auto) 1.0 L (1.2-4.9) X10*3/uL [place] # (Auto) 0.4 (0.1-1.2) X10*3/uL Eos # (Auto) 0.1 (0.0-0.4) X10*3/uL Baso # (Auto) 0.0 (0.0-0.2) X10*3/uL Abs Immat Gran (auto) 0.01 (0.00-0.03) X10*3/uL Absolute Neuts (auto) 2.0 (2.0-8.3) x10*3/uL Absolute Nucleated RBC 0.000 (0.0-0.012) X10*3/uL Nucleated RBC % (auto) 0.0 (0.0-0.2) /100WBC Sodium 142 (135-145) mmol/L Potassium 3.7 (3.3-5.1) mmol/L Chloride 108 (96-108) mmol/L Carbon Dioxide 25 (22-29) mmol/L Anion Gap 13 (12-20) BUN 18 H (9-16) mg/dL Creatinine 0.75 (0.5-1.4) mg/dL Estim Creat Clear Calc 55.3 Estimated GFR > 60 Random Glucose 89 (60-115) mg/dL Calcium 8.9 (8.4-10.2) mg/dL Troponin I High Sens 3.1 (<3.5-17.0) ng/L Urine Color Yellow Urine Appearance Clear Urine pH 6.0 (5.0-9.0) Ur Specific [place] <= 1.005 (1.005-1.025) Urine Protein Negative (Neg-Trace) mg/dL Urine Glucose (UA) Negative (Negative) mg/dL Urine Ketones Negative (Negative) mg/dL Urine Blood Negative (Negative) Urine Nitrite Negative (Negative) Ur Leukocyte Esterase Trace H (Negative) Urine RBC 0-2 (0-2) /HPF Urine WBC 0-5 (0-5) /HPF Ur Squamous Epith Cells 0-2 (0-2) /HPF Urine Bacteria None Seen (None Seen) Hyaline Casts 0-2 (0-2) /LPF Independent Interpretation I performed an independent interpretation of an: EKG (85 beats per minute, otherwise normal ECG without dysrhythmia, AV ros blocks or ST-T changes to suspect underlying ACS, my independent interpretation) Radiology Impression Discussion of test interpretation with radiology: I have reviewed the radiologist's reading. (1. No acute intracranial findings.) Prescription Management I considered prescription management with: Pain Medication Discharge Plan Discharge Clinical Impression: Recurrent headache, Essential hypertension Patient Disposition: Home, Self-Care Additional Instructions: Please follow up with your PCP for brain MRI on outpatient basis, your workup today included blood work, EKG CT of the brain vital signs physical examination reassuring Please restart verapamil your blood pressure is high Prescriptions: No Action cholecalciferol (vitamin D3) 1,250 mcg (50,000 unit) capsule 1,250 mcg PO QWEEK 28 Days Qty: 4 2RF lorazepam 1 mg tablet 1 mg PO TID 30 Days Qty: 90 0RF Rx Instructions: MassPat Verified dextroamphetamine-amphetamine [Adderall] 20 mg tablet 20 mg PO DAILY 30 Days Qty: 30 0RF Rx Instructions: Partial Fill upon patient request. clonidine HCl 0.3 mg tablet 0.3 mg PO TID Qty: 90 0RF sennosides-docusate sodium [Senna Plus] 8.6-50 mg Tablet 1 tab PO BID Qty: 60 0RF hydrocortisone 1 % cream 1 appl topical BID Qty: 28.35 0RF Referrals: Manjit Louise MD [Primary Care Provider, Internal Medicine] - 2 weeks Clinical Impression: Recurrent headache Print Language: Slovak
--- NOTE | 2025-03-12 15:58 | ECG_ITS ---
Test Reason : dizziness Blood Pressure : */* mmHG Vent. Rate : 85 BPM Atrial Rate : 85 BPM P-R Int : 218 ms QRS Dur : 78 ms QT Int : 374 ms P-R-T Axes : 42 -23 20 degrees QTcB Int : 445 ms Sinus rhythm with 1st degree A-V block Possible Left atrial enlargement Left ventricular hypertrophy ( R in aVL , [place] product ) Inferior infarct (cited on or before 13-Jan-2019) Anterior infarct (cited on or before 28-Jun-2021) Abnormal ECG When compared with ECG of 18-Feb-2024 12:52, Questionable change in initial forces of Septal leads Referred By: Noel Avila Electronically Signed By: DANA PIEDRA MD
[2025-03-12 16:02] VITALS: TEMP 36.8
[2025-03-12 16:32] LABS: Hematocrit 34.8 % (37.0-47.0); Hemoglobin 12.1 g/dl (12.0-16.0); Imm Gran Abs Auto 0.01 X10*3/uL (0.00-0.03); Imm Gran Pct Auto 0.3 % (0.0-0.4); Lymphocytes Absolute Auto 1.0 X10*3/uL (1.2-4.9); MANUAL DIFF FLAG NO; Mean Corpuscular HGB Conc 34.8 g/dl (31.0-35.0); Mean Corpuscular Hemoglobin 30.8 pg (27.0-33.0); Mean Corpuscular Volume 88.5 fL (80.0-98.0); NRBC Abs Auto 0.000 X10*3/uL (0.0-0.012); NRBC Pct Auto 0.0 /100WBC (0.0-0.2); Platelet Count 192 X10*3/uL (160-400); Red Blood Count 3.93 X10*6/uL (4.20-5.50); White Blood Count 3.6 X10*3/uL (4.8-10.8)
[2025-03-12 16:33] LABS: Appearance Urine Clear; Glucose Urine UA Negative (Negative); PH 6.0 (5.0-9.0); Specific Gravity - Urine <= 1.005 (1.005-1.025); UMIC TRIGGER UA YES
[2025-03-12 16:46] LABS: Anion Gap 13 (12-20); Blood Urea Nitrogen 18 mg/dL (9-16); Calcium 8.9 mg/dL (8.4-10.2); Carbon Dioxide 25 mmol/L (22-29); Chloride 108 mmol/L (96-108); Creatinine Clr Calc Pharmacy 55.3; Estimated Glomerular Filt Rate > 60; Potassium 3.7 mmol/L (3.3-5.1); Sodium 142 mmol/L (135-145)
[2025-03-12 16:55] LABS: Troponin-I High Sensitivity 3.1 ng/L (<3.5-17.0)
[2025-03-12 21:31] VITALS: BP 176/115; PULSE 81; RESP 16; TEMP 36.9; O2SAT 98
--- OUTSIDE RECORDS SUMMARY | 2025-03-12 22:05 | XMS_ITS | Clinical Summary ---
Author Organization [facility] Address [facility] access hospital [facility] [address] [address] Phone Care Team Providers Care Marble Worker Name Role Phone Pcp, Not Required Primary Care Provider Unavaila ble Allergies No known active allergies Medications LORazepam (ATIVAN) 1 MG tablet 1 mg. 11/20/2023 Active ivermectin (STROMECTOL) 3 mg Tab 3 mg. 11/13/2023 Active CERAVE Crea APPLY DAILY AFTER BATH OTC 11/10/2023 Active cloNIDine HCL (CATAPRES) 0.3 MG tablet Take 0.3 mg by mouth 3 (three) times a day. 10/15/2023 Active dextroamphetami ne-amphetamine (ADDERALL) 20 mg Tab tablet Take 1 tablet by mouth every morning. 11/30/2023 Active verapamiL (VERELAN) 360 MG 24 hr capsule Take 1 capsule by mouth every morning. 11/27/2023 Active natamycin (NATACYN) 5 % ophthalmic solution Place 1 drop into the left eye every 1 (one) hour. 15 mL 3 01/12/2024 Active natamycin (NATACYN) 5 % ophthalmic solution Place 1 drop into the left eye every 1 (one) hour. 15 mL 3 01/18/2024 Active Active Problems No known active problems Social History Tobacco Use Types Packs/Day Years Used Date Smoking Tobacco: Never Assessed Education Answer Date Recorded Are you interested in more education? Not on alon e 12/18/2023 Are you concerned about learning? Not on file 12/18/2023 No 12/18/2023 No 12/18/2023 Digital Access Answer Date Recorded No 12/18/2023 No 12/18/2023 Reliable internet access at home? Not on file 12/18/2023 Device with a working camera? Not on file Intimate Partner Violence Answer Date R ecorded Are you denied basic needs s uch as food, clothing, or medical care? No 12/18/2023 In the past 12 months have y ou been in a relationship with a person who hurts, threatens, or tries to control you? No 12/18/2023 Are you denied basic needs s uch as food, clothing, or medical care? No 12/18/2023 In the past 12 months have y ou been in a relationship with a person who hurts, threatens, or tries to control you? No 12/18/2023 Comments Unknown Sex and Gender Information Value Date Recorded Sex Assigned at Not on file Legal Sex Female 6:27 PM EST Gender Identity Not on file Sexual Orientation Not on file Last Filed Vital Signs Vital Sign Reading Time Taken Comments Blood Pressure 142/82 12/18/2023 12:24 AM EDT Pulse 70 12/18/2023 12:24 AM EDT Temperature 36.6 C (97.8 F) 12/18/2023 12:24 AM EDT Respiratory Rate 18 12/18/2023 12:24 AM EDT Oxygen Saturation 97% 12/18/2023 12:24 AM EDT Inhaled Oxygen Concentration - - Weight - - Height - - Body Mass Index - - Plan of Treatment Health Maintenance Due Date Last Done Comments Adult Td,Tdap Booster 1951 LIPID PANEL 1951 DEPRESSION SCREENING 1963 SMOKING Hx and SMOKELESS TOB ACCO SCREENING 1964 HEPATITIS C SCREENING 1969 MAMMOGRAM 1991 COLOGUARD 1996 COLONOSCOPY 1996 COLORECTAL CANCER SCREENING 1996 FIT TEST 1996 FOBT 1996 SIGMOIDOSCOPY 1996 VIRTUAL COLONOSCOPY 1996 PNEUMOCOCCAL VACCINES (50+ y ears) (1 of 1 - PCV) 2001 ZOSTER VACCINES (1 of 2) 2001 OSTEOPOROSIS SCREENING INITI AL (ONE-TIME) 2016 COVID-19 VACCINE (2023-2 5 season) 2024 RSV VACCINE (1 - 1-dose 75+ series) 2026 HEPATITIS A VACCINES Aged Out No long er eligible based on patient's age to complete this topic HIB VACCINES Aged Out No longer eligi ble based on patient's age to complete this topic MENINGOCOCCAL VACCINES (ACWY) Aged Out No longer eligible based on patient's age to complete this topic MENINGOCOCCAL VACCINES (B) Aged Out N o longer eligible based on patient's age to complete this topic Medical Devices Not on file Insurance MEDICARE PART A & B MEDICARE PART A & B MEDICARE PART A & B MEDICARE PART A & B MEDICARE PART A & B MEDICARE PART A & B Member Subscriber Plan / Payer (Ef fective 2005-Present) Name:Anahi Apodaca Member ID:[id number] Relation to Subscriber:Self Name:Anahi Apodaca Subscriber ID:[id number] Payer ID:[id number] Group ID:Not on file Type:Medicare Address: [facility] [employer] [facility] [address] [place] [phone] Care Teams Marble Worker Relationship Specialty Start Date End Date Pcp, Not Required [address] [place] [id number] PCP - General 12/18/23 Additional Source Comments The information contained in this document represents components of the legal health record. It is not the complete legal health record.[facility]
[2025-03-12 22:55] VITALS: BP 176/115; PULSE 81; RESP 16; TEMP 36.9; O2SAT 98
== END 2025-03-12 22:56 | disposition home or self-care (01) ==
PROVIDERS: Physician Assistant; Emergency Provider Emergency Medicine; PCP Family Medicine
DX: R51.9 Headache, unspecified (principal); R42 Dizziness and giddiness; I10 Essential (primary) hypertension
CPT/HCPCS: 36415; 70450; 80048; 81001; 84484; 85025; 93005; 99284

== ENCOUNTER → 2025-03-12 15:57 | Outpatient (BNV) | payer MEDICARE, SELFPAY | PROVIDERS: PCP Family Medicine; Visit Provider Radiology Diagnostic Radiology | DX: R51.9 Headache, unspecified (principal); R42 Dizziness and giddiness | CPT/HCPCS: 70450 ==

== ENCOUNTER → 2025-03-12 15:58 | Outpatient (BNV) | payer MEDICARE, SELFPAY | PROVIDERS: Emergency Provider Emergency Medicine; PCP Family Medicine; Visit Provider Internal Medicine Cardiovascular Disease | DX: I44.0 Atrioventricular block, first degree (principal); I51.7 Cardiomegaly; I25.2 Old myocardial infarction | CPT/HCPCS: 93010 ==

== ENCOUNTER 2025-04-19 16:29 | Outpatient (AMB) | payer MEDICARE, SELFPAY ==
--- NOTE | 2025-04-19 16:27 | MHC.PC.OV ---
Intake Visit Reasons: f/u labs, chronic conditions /Medication review Allergies Penicillins (PENICILLINS) Allergy (Unknown, Verified 03/12/25 16:00) UNKNOWN-SICK DAYS LATER Sulfa (Sulfonamide Antibiotics) (SULFA (SULFONAMIDE ANTIBIOTICS)) Allergy (Unknown, Verified 03/12/25 16:00) UNKNOWN- SICK DAYS LATER, hives acetaminophen (ACETAMINOPHEN) Adverse Reaction (Severe, Verified 03/12/25 16:00) BAD EFFECTS Tobacco use date assessed: 11/02/23 Dental Screening Dental Screen Date: 11/02/23 [facility] Medical History Pulmonary nodule 1 cm or greater in diameter PFO (patent foramen ovale) Surgical History History of wisdom tooth extraction Family History Father No problems noted. Mother No problems noted. Social History Household Members: Family Housing: Apartment Do you presently have visiting nurse or other home services: No Alcohol intake: current Alcohol intake frequency: holidays/special occasions only Patient Tobacco Use Status: Former Tobacco user Tobacco use type: Cigarette Cigarettes Per Day: 20 Years Smoked: 13 e-Cigarette/Vaping Use: Never Used Second Hand Smoke Exposure: No Advance Directives: No Advance Directives Information Provided: Yes service: No Current occupational status: retired Current occupation: right hand dominant Sexual orientation: Straight/Heterosexual Cognitive needs: No Hearing needs: No Vision needs: No Questionnaire Thrive Questionnaire Date Thrive assessed: 02/22/24 JASMINE-7 AMB Questionnaire JASMINE-7 Date JASMINE - 7 assessed: 08/12/22 Source: Developed by Drs. Castro Healy, Crys Luna, Salas Pressley and colleagues, with an educational cleo from [employer]. Physical exam (Primary Care) Tobacco/Smoking Status: Tobacco use Status Tobacco use date assessed 11/02/23 05/20/24 10:51 Patient Tobacco Use Status Former Tobacco user 05/20/24 10:51 Tobacco use type Cigarette 05/20/24 10:51 e-Cigarette/Vaping Use Never Used 10/25/24 10:51 Thrive Assessment: Date of Thrive Assessment Date Thrive assessed 02/22/24 05/20/24 12:20 Coding
--- NOTE | 2025-04-19 16:32 | MHC.PC.OV ---
Vital Signs 04/19/25 16:36 Height 5 ft 3 in Weight 122 lb 6 oz BMI 21.7 BP 150/88 H Blood Pressure Location Rt brachial Position Sitting Respiration 15 Pulse 74 Pulse Source Pulse Oximeter Temp 97.9 F Temp Source Temporal Artery Scan Pulse Oximetry (%) 98 Oxygen Delivery Method Room Air Intake Visit Reasons: f/u labs, chronic conditions /Medication review Intake Note: Anahi presents in the office today to follow up to her labs/medication review Allergies Penicillins (PENICILLINS) Allergy (Unknown, Verified 04/19/25 16:34) UNKNOWN-SICK DAYS LATER Sulfa (Sulfonamide Antibiotics) (SULFA (SULFONAMIDE ANTIBIOTICS)) Allergy (Unknown, Verified 04/19/25 16:34) UNKNOWN- SICK DAYS LATER, hives acetaminophen (ACETAMINOPHEN) Adverse Reaction (Severe, Verified 04/19/25 16:34) BAD EFFECTS Medication List - Last Reconciled 04/19/25 by Manjit Louise MD clonidine HCl 0.3 mg PO TID dextroamphetamine-amphetamine 20 mg (Adderall) 20 mg PO DAILY 30 days hydrocortisone 1% 1 appl topical BID lorazepam 1 mg PO TID 30 days sennosides-docusate sodium 8.6-50 mg (Senna Plus) 1 tab PO BID verapamil ER 120 mg PO QAM 90 days Tobacco use date assessed: 04/19/25 Fall risk assessment: No Falls in past year Last assessed Fall Risk: 04/19/25 Dental Screening Dental Screen Date: 04/19/25 Did you have a dental visit in the last 12 months?: No Did you have a dental problem in the last 6 months where you did not have access to dental care?: No Was dental information given to patient?: Patient has dentist HPI f/u labs, chronic conditions /Medication review HPI Details 74 y/o female presents to f/u chronic conditions. Blood pressure today 150/88, 74p. She is on clonidine and hospital had recommended her to restart verapamil. PFSH Medical History Pulmonary nodule 1 cm or greater in diameter PFO (patent foramen ovale) Surgical History History of wisdom tooth extraction Family History (Updated 04/19/25 @ 16:36 by Paige Morrison CMA) Father No problems noted. Mother No problems noted. Social History (Updated 04/19/25 @ 16:36 by Paige Morrison CMA) Household Members: Family Housing: Apartment Do you presently have visiting nurse or other home services: No Alcohol intake: current Alcohol intake frequency: holidays/special occasions only Patient Tobacco Use Status: Former Tobacco user Tobacco use type: Cigarette Cigarettes Per Day: 20 Years Smoked: 13 e-Cigarette/Vaping Use: Never Used Second Hand Smoke Exposure: No service: No Current occupational status: retired Current occupation: right hand dominant Sexual orientation: Straight/Heterosexual Cognitive needs: No Hearing needs: No Vision needs: No Questionnaire Thrive Questionnaire Date Thrive assessed: 05/20/24 I am a: Patient What is your living situation today?: I do not have a steady places to live I am temporarily staying with others Within the past 12 months, did the food you bought not last and you didn't have the money to get more?: Never true Within the past 12 months, did you worry whether your food would run out before you got money to buy more?: Never true Do you have trouble paying for medicines?: No Do you have trouble getting transportation to medical appointments?: Yes Do you have trouble paying your heating and electricity bill?: No Do you have trouble taking care of your child, family member or friend?: No Do you have trouble with day-to-day activities such as bathing, preparing meals, shopping, managing finances, etc.?: Yes Are you currently unemployed and looking for a job?: No Are you interested in more education?: I choose not to answer this question THRIVE Score: 2 JASMINE-7 AMB Questionnaire JASMINE-7 Date JASMINE - 7 assessed: 08/12/22 Source: Developed by Drs. Castro Healy, Crys Luna, Salas Pressley and colleagues, with an educational cleo from [employer]. Review of Systems Const Denies chills, Denies fatigue, Denies fever(s), Denies headache(s) and Denies weakness ENT Denies dizziness and Denies headache(s) Card Denies chest pain, Denies lightheadedness, Denies dyspnea and Denies other (Palpitations) Resp Denies cough, Denies dyspnea, Denies wheezing and Denies other ( shortness of breath) Musc Denies numbness and Denies tingling Neuro Denies dizziness, Denies headache(s), Denies numbness, Denies tingling, Denies paresthesias and Denies weakness Psych Denies anxiety and Denies depression Endo Denies fatigue Aller/Immun Denies wheezing Physical exam (Primary Care) Vital Signs: Last Vital Signs Temp 97.9 F 04/19/25 16:36 Pulse 74 04/19/25 16:36 Resp 15 04/19/25 16:36 BP 150/88 H 04/19/25 16:36 Pulse Ox 98 04/19/25 16:36 Oxygen Delivery Method Room Air 04/19/25 16:36 BMI result Body Mass Index 21.7 Tobacco/Smoking Status: Tobacco use Status Tobacco use date assessed 04/19/25 04/19/25 16:42 Patient Tobacco Use Status Former Tobacco user 04/19/25 16:36 Tobacco use type Cigarette 04/19/25 16:36 e-Cigarette/Vaping Use Never Used 04/19/25 16:36 Thrive Assessment: Date of Thrive Assessment Date Thrive assessed 05/20/24 04/19/25 16:33 Const General: no acute distress and well developed Nutritional Appearance: well nourished Orientation/consciousness: patient oriented x3 HENMT Head: Yes normocephalic and Yes atraumatic Eyes General: appearance normal, both eyes and all related structures Pupils: Equal, round and reactive pupils present EOM: EOMs intact bilaterally Resp Effort & Inspection: normal respiratory effort Auscultation: clear to auscultation bilaterally Cardio Rate: regular rate Rhythm: regular rhythm Heart sounds: S1 normal heart sound present, S2 normal heart sound present, no gallops, no murmurs and no rubs Neuro General: patient oriented x3 and gait normal Cranial nerves: Yes Equal, round and reactive pupils present Psych Affect: normal affect Coding Level of Care Code Est Pt Level 4 (06158) Diagnoses Essential hypertension I10 ADHD (attention deficit hyperactivity disorder), inattentive type F90.0 Homelessness Z59.00 Assessment & Plan Assessment & Plan (1) Essential hypertension: Code(s): I10 - Essential (primary) hypertension Category: Medical Plan: Blood pressure has been much too high. Recent visit to ED with blood pressure of 215/119 and symptomatic with headaches and dizziness. CT scan was reassuring They continued her clonidine advised her to restart verapamil. She will restart this as recommended Will have her return for nurse visit in a week Follow-up with me in about 6 weeks (2) ADHD (attention deficit hyperactivity disorder), inattentive type: Code(s): F90.0 - Attention-deficit hyperactivity disorder, predominantly inattentive type Category: Medical Plan: Patient is on Adderall and requested an increase in her dose. Declined this. She can discuss with her psych med provider (3) Homelessness: Code(s): Z59.00 - Homelessness unspecified Category: Social Hx Plan Patient has housing instability and is worried that she will become homeless Will make a referral to the nurse navigator to help evaluation for any services. She return in about 6 weeks follow-up hypertension Will also reducing lab work. Orders: Orders Microalbumin, Random (w Creat) Today I10 - Essential (primary) hypertension TSH reflex Free T4 Today Z00.00 - Encounter for general adult medical examination without abnormal findings Erythrocyte Sedimentation Rate Today M25.50 - Pain in unspecified joint Comprehensive [place]. Panel Fast Today Z00.00 - Encounter for general adult medical examination without abnormal findings Complete Blood Count Auto Diff Today Z00.00 - Encounter for general adult medical examination without abnormal findings UA CC w/rflx Micro + Cult Today Z00.00 - Encounter for general adult medical examination without abnormal findings CRP High Sensitivity Today M25.50 - Pain in unspecified joint MEDINA Reflex Titer and Pattern Today M25.50 - Pain in unspecified joint Referrals Nurse Navigator Referral Z59.00 - Homelessness unspecified, Z59.819 - Housing instability, housed unspecified Medications: New verapamil ER 120 mg PO QAM 90 caps 3RF 90 days
[2025-04-19 16:36] VITALS: BP 150/88; PULSE 74; RESP 15; TEMP 36.6; O2SAT 98; BMI 21.7
--- OUTSIDE RECORDS SUMMARY | 2025-04-19 18:08 | XMS_ITS | Encounter Summary ---
Author Organization [facility] Address Formerly [facility], [facility] [address] [place] [address] Phone Care Team Providers Care Salesperson Meats Name Role Phone Pcp, Not Required Primary Care Provider Unavaila ble Encounter Details Date Type Department Care Team ([facility] Contact Info) Description 12/18/2023 Ophth Exam [facility] [place] Emergency Department [address] [place] [address] Mika Barrow MD, PhD [address] [place] [address] [email or web address]. U Social History Tobacco Use Types Packs/Day Years [...] on file Sexual Orientation Not on file documented as of this encounter Functional Status * Calculated C-SSRS Risk Score (Lifetime/Recent) Answer Date of Assessment Author No Risk Indicated 12/18/2023 12:23 AM Desi Carson RN * [place] Suicide Severity Rating Scale (Screener/Recent Self-Report) Question Answer Date of Assessment Author 1. Wish to be (Past 1 Month) No 024 12:23 AM Desi Carson, MELQUIADES 2. Non-Specific Active Suici herman Thoughts (Past 1 Month) No 12/18/2023 12:23 AM Johnny Carson RN 6. Suicidal Behavior (Lifetime) No 4 12:23 AM Desi Carson, MELQUIADES documented as of this encounter Plan of Treatment Not on file documented as of this encounter Visit Diagnoses Not on filedocumented in this encounter Care Teams Salesperson Meats Relationship Specialty Start Date End Date Pcp, Not Required [address] [place] [id number] PCP - General 12/18/23 documented as of this encounter Additional Source Comments The information contained in this document represents components of the legal health record. It is not the complete legal health record.[facility]
--- OUTSIDE RECORDS SUMMARY | 2025-04-19 18:08 | XMS_ITS | Patient Health Record ---
Author Organization [facility] Address [address] [place] [address] Care Team Providers Care Director Of Planning Name Role Phone Griselda(inactive) Riky FIELD Primary Care Provider U Castro Claudio Unavailable [phone] Allergies Allergen (clinical drug ingredient) Drug/Non Drug Allergy documented on EMR Reaction Allergy Type Onset Date Status Sulfa Unknown Drug Allergy Active lidocaine Lidocaine Unknown Drug Allergy Active Levaquin Unknown Drug Allergy Active ciprofloxacin Cipro Unknown Drug Allergy Act willam Reason For Referral No Information Medications Medication SIG (Take, Route, Frequency, Duration) Notes Start Date End Date Status LORazepam 1 MG TAKE 1 TABLET BY REGINO TH 3 TIMES A DAY Oral for 30 Active Verapamil HCl ER 240 MG TAKE 1 CAPSULE I N THE MORNING ONCE A DAY Oral for 90 Active Amphetamine-Dextroamphetamin e 10 MG TAKE (2) TABS IN AM AND (1) TAB IN PM Oral for 30 Active Cyproheptadine HCl 4 MG TAKE 1 TABLET TH REE TIMES A DAY ORALLY Oral for 30 Active Multi Vitamin/Minerals 1 1 Orally QD 12/19/2014 Active Aspir-81 81 MG 1 tablet Orally Once a day 12/19/2014 Active Levothyroxine Sodium 25 MCG 1 tablet Ora lly Once a day Active Problems Problem Type SNOMED Code ICD Code Onset Dates Problem Status W/U Status Risk Notes Problem Blood in stool (954584328) Blood in stool (578.1) Active confirmed Problem Colon cancer screening (304371831) Colon cancer screening (V76.51) Active confirmed Problem History of polyp of colon (situation) (140369450) History of colon polyps (V12.72) Active confirmed Problem 954584391 Encounter for screening for malignant neoplasm of colon (Z12.11) Active confirmed Problem Screening for malignant neoplasm of rectum (513137903) Encounter for screening for malignant neoplasm of rectum (Z12.12) Active confirmed Problem 17424180 Constipation, unspecified constipation type (K59.00) Active confirmed Plan Of Treatment Future Test Test Name Order Date COLONOSCOPY 05/06/2016 Insurance Providers Payer Name Payer Address Payer Phone Subscriber Number Group Number Insured Name Patient Relationship to Insured Coverage Start Date Coverage End Date MEDICARE OF [place] [address] [place] [address] [id number] LEONEL MCMILLAN Self - patient is the insured [place] [phone] [id number] LEONEL MCMILLAN Self - patient is the insured Medical (General) History Medical History History ICD Code HTN Denies AK,DM,CVA,Lung disease,renal dise ase 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 Francois -told of a couple of polyps Also had an EGD in [address] Francois-- not sure of the results Has some type of process wit h ? of allergic rxn involving her skin, face, lips, and tongue--- she describes painful blisters on her tongue and lips when this occurs--she has been seeing a wheel fitter for this. Shingles ADHD Hypothyroidism Surgical History Surgery Date(Month/Year) Tubal ligation All upper and most of the lower teeth wilkerson ve been removed Nasal surgery Perianal fistula in the --Dr. Martinez a
--- OUTSIDE RECORDS SUMMARY | 2025-04-19 18:08 | XMS_ITS | Clinical Summary ---
Author Organization [facility] Address [facility] [address] [address] Phone Care Team Providers Care Diesel Lube Tech Name Role Phone Pcp, Not Required Primary [...] 2001 OSTEOPOROSIS SCREENING INITI AL (ONE-TIME) 2016 INFLUENZA VACCINE (#1) 2025 COVID-19 VACCINE ( - 2023-2 5 season) 2025 RSV VACCINE (1 - 1-dose 75+ series) [...] & B MEDICARE PART A & B Care Teams Diesel Lube Tech Relationship Specialty Start Date End Date Pcp, Not Required [address] [place] [id number] PCP - General 12/18/23 Additional Source Comments The information contained in this document represents components of the legal health record. It is not the complete legal health record.[facility]
== END 2025-04-19 17:05 | disposition home or self-care (01) ==
LOC: HO.HMCFM 16:30
PROVIDERS: PCP Family Medicine; Visit Provider Family Medicine
DX: I10 Essential (primary) hypertension (principal); F90.0 Attention-deficit hyperactivity disorder, predominantly inattentive type; Z59.00 Homelessness unspecified

== ENCOUNTER → 2025-04-19 16:29 | Outpatient (BNVA) | payer MEDICARE, SELFPAY | PROVIDERS: PCP Family Medicine; Visit Provider Family Medicine | DX: I10 Essential (primary) hypertension (principal); F90.0 Attention-deficit hyperactivity disorder, predominantly inattentive type; Z59.00 Homelessness unspecified | CPT/HCPCS: 99212 ==

== ENCOUNTER 2025-06-15 10:47 | Outpatient (AMB) | payer MEDICARE, SELFPAY ==
--- NOTE | 2025-06-15 10:53 | A.OFFPC_ITS ---
Vital Signs 06/15/25 10:59 06/15/25 11:02 Height 5 ft 3 in Weight 127 lb 6 oz BMI 22.6 BP 160/80 H 170/80 H Blood Pressure Location Rt brachial Rt brachial Position Sitting Sitting Respiration 14 Pulse 76 Pulse Source Pulse Oximeter Temp 98.5 F Temp Source Oral Pulse Oximetry (%) 100 Oxygen Delivery Method Room Air Intake Visit Reasons: f/u HTN, chronic conditions Intake Note: patient is scheduled for htn and chronic conditions Gaming Cage Cashier Required: No Allergies Penicillins (PENICILLINS) Allergy (Unknown, Verified 06/15/25 10:57) UNKNOWN-SICK DAYS LATER Sulfa (Sulfonamide Antibiotics) (SULFA (SULFONAMIDE ANTIBIOTICS)) Allergy (Unknown, Verified 06/15/25 10:57) UNKNOWN- SICK DAYS LATER, hives acetaminophen (ACETAMINOPHEN) Adverse Reaction (Severe, Verified 06/15/25 10:57) BAD EFFECTS Medication List - Last Reconciled 06/15/25 by Manjit Louise MD clonidine HCl 0.3 mg PO TID dextroamphetamine-amphetamine 20 mg (Adderall) 20 mg PO DAILY 30 days lorazepam 1 mg PO TID 30 days verapamil ER 180 mg PO Q12H Tobacco use date assessed: 04/19/25 Dental Screening Dental Screen Date: 04/19/25 HPI f/u HTN, chronic conditions HPI Details 74 y/o female presents to f/u HTN, chron ic conditions. BP today 160/80, 76p. 170/80 upon recheck. She is on clonidine 0.3mg t.i.d, verapamil 180mg. She had stopped her verapamil but more recently resumed this and continues clonidine t.i.d. Pt notes some lower extremity swelling today. HPI Comments History of Present Illness Details Documentation assistance for Manjit Louise MD, was provided by Nick Perez,? Molder Feeder on 06/15/2025 at 11:55 AM EST. I, Dr. Louise, have read, observed, and verified documentation. ?? PFSH Medical History Pulmonary nodule 1 cm or greater in diameter PFO (patent foramen ovale) Surgical History History of wisdom tooth extraction Family History (Updated 04/19/25 @ 16:36 by Paige Morrison CMA) Father No problems noted. Mother No problems noted. Social History (Updated 04/19/25 @ 16:36 by Paige Morrison CMA) Household Members: Family Housing: Apartment Do you presently have visiting nurse or other home services: No Alcohol intake: current Alcohol intake frequency: holidays/special occasions only Patient Tobacco Use Status: Former Tobacco user Tobacco use type: Cigarette Cigarettes Per Day: 20 Years Smoked: 13 e-Cigarette/Vaping Use: Never Used Second Hand Smoke Exposure: No service: No Current occupational status: retired Current occupation: right hand dominant Sexual orientation: Straight/Heterosexual Cognitive needs: No Hearing needs: No Vision needs: No Questionnaire PHQ-9 Over the last 2 weeks, how often have you been bothered by any of the following problems? 1. Little interest or pleasure in doing things: several days 2. Feeling down, depressed, or hopeless: several days 3. Trouble falling or staying asleep, or sleeping too much: several days 4. Feeling tired or having little energy: several days 5. Poor appetite or overeating: not at all 6. Feeling bad about yourself - or that you are a failure or have let yourself or your family down: several days 7. Trouble concentrating on things, such as reading the newspaper or watching television: several days 8. Moving or speaking so slowly that other people could have noticed. Or the opposite - being so fidgety or restless that you have been moving around a lot more than usual: not at all 9. Thoughts that you would be better off or of hurting yourself in some way: not at all Total score: 6 Source: Developed by Drs. Castro Healy, Crys Luna, Salas Pressley and colleagues, with an educational cleo from [employer]. Thrive Questionnaire Date Thrive assessed: 06/09/25 I am a: Patient What is your living situation today?: I do not have a steady places to live I am temporarily staying with others Within the past 12 months, did the food you bought not last and you didn't have the money to get more?: Often true Within the past 12 months, did you worry whether your food would run out before you got money to buy more?: Often true Do you have trouble paying for medicines?: Yes Do you have trouble getting transportation to medical appointments?: Yes Do you have trouble paying your heating and electricity bill?: Yes Do you have trouble taking care of your child, family member or friend?: No Do you have trouble with day-to-day activities such as bathing, preparing meals, shopping, managing finances, etc.?: Yes Are you currently unemployed and looking for a job?: I choose not to answer this question Are you interested in more education?: No Please select the resources that you would like help with: Housing/Senior Care, Food, Paying for medicine, Transportation, Utilities, Care for elder or disabled and Daily support Currently or been in a relationship where the following occur: I choose not to answer THRIVE Score: 5 AUDIT C Alcohol Use Questionnaire (AUDIT-C) 1. How often do you have a drink containing alcohol?: Never 3. How often do you have six or more drinks on one occasion?: Never Total Score: 0 JASMINE-7 AMB Questionnaire JASMINE-7 Date JASMINE - 7 assessed: 08/12/22 Feeling nervous, anxious, or on edge: 3 = Nearly every day Not being able to stop or control worryin = Nearly every day Worrying too much about different things: 3 = Nearly every day Trouble relaxin = Nearly every day Being so restless that it is hard to sit still: 1 = Several days Becoming easily annoyed or irritable: 1 = Several days Feeling afraid as if something awful might happen: 1 = Several days Total JASMINE-7 score (0-4 normal; 5-9 mild; 10-14 moderate; 15-21 severe): 15 Source: Developed by Drs. Castro Healy, Crys Luna, Salas Pressley and colleagues, with an educational cleo from [employer]. Review of Systems Const Denies chills, Denies fatigue, Denies fever(s), Denies headache(s) and Denies weakness ENT Denies dizziness and Denies headache(s) Card Denies dyspnea Resp Denies cough, Denies dyspnea, Denies wheezing and Denies other (shortness of breath) Musc Denies numbness and Denies tingling Neuro Denies dizziness, Denies headache(s), Denies numbness, Denies tingling and Denies weakness Psych Denies anxiety and Denies depression Endo Denies fatigue Aller/Immun Denies wheezing Physical exam (Primary Care) Vital Signs: Last Vital Signs Temp 98.5 F 06/15/25 10:59 Pulse 76 06/15/25 10:59 Resp 14 06/15/25 10:59 BP 170/80 H 06/15/25 11:02 Pulse Ox 100 06/15/25 10:59 Oxygen Delivery Method Room Air 06/15/25 10:59 BMI result Body Mass Index 22.6 Tobacco/Smoking Status: Tobacco use Status Tobacco use date assessed 04/19/25 06/15/25 10:55 Patient Tobacco Use Status Former Tobacco user 06/15/25 10:55 Tobacco use type Cigarette 06/15/25 10:55 e-Cigarette/Vaping Use Never Used 06/15/25 10:55 PHQ-9: PHQ-9 Score PHQ-9: Total score 6 06/15/25 11:12 Thrive Assessment: Date of Thrive Assessment Date Thrive assessed 06/09/25 06/15/25 10:55 Currently or been in a relationship where the following occur: I choose not to answer Const General: well developed; No acute distress Nutritional Appearance: well nourished Orientation/consciousness: patient oriented x3 HENMT Head: Yes normocephalic and Yes atraumatic Eyes General: appearance normal, both eyes and all related structures Pupils: Equal, round and reactive pupils present EOM: EOMs intact bilaterally Resp Effort & Inspection: normal respiratory effort Neuro General: patient oriented x3 and gait normal Cranial nerves: Yes Equal, round and reactive pupils present Psych Affect: normal affect Coding Level of Care Code Est Pt Level 4 (51609) Diagnoses Essential hypertension I10 ADHD (attention deficit hyperactivity disorder), inattentive type F90.0 Swelling of lower extremity M79.89 Hypothyroidism E03.9 Assessment & Plan Assessment & Plan (1) Essential hypertension: Code(s): I10 - Essential (primary) hypertension Category: Medical Plan: Blood pressure is too high. She had stopped her verapamil but more recently resumed this and continues clonidine t.i.d. Increasing verapamil ER to 240mg daily (2) ADHD (attention deficit hyperactivity disorder), inattentive type: Code(s): F90.0 - Attention-deficit hyperactivity disorder, predominantly inattentive type Category: Medical Plan: Continue current medications (3) Swelling of lower extremity: Code(s): M79.89 - Other specified soft tissue disorders Category: Medical Plan: Ongoing lower extremity edema - likely myxedema Referring her to endocrinology for hypothyroidism Will give her a short course of furosemide Elevate Legs (4) Hypothyroidism: Code(s): E03.9 - Hypothyroidism, unspecified Category: Medical Plan: Referring her to endocrinology Orders: Referrals Sleep Medicine Referral G47.10 - Hypersomnia, unspecified Endocrinology Referral E03.9 - Hypothyroidism, unspecified Medications: New verapamil ER 240 mg PO QAM 90 caps 3RF 90 days
[2025-06-15 10:59] VITALS: BP 160/80; PULSE 76; RESP 14; TEMP 36.9; O2SAT 100; BMI 22.6
[2025-06-15 11:02] VITALS: BP 170/80
--- OUTSIDE RECORDS SUMMARY | 2025-06-15 16:17 | XMS_ITS | Encounter Summary ---
Author Organization [facility] Address [facility] [address] [place] [phone] Phone Care Team Providers Care Air Traffic Control Specialist Center Name Role Phone Pcp, Not Required Primary Care Provider Unavaila ble Encounter Details Date Type Department Care Team ([facility] Contact Info) Description 12/18/2023 Ophth Exam [facility] [facility] Emergency Department [address] [place] [address] Mika Barrow MD, PhD [address] [place] [address] [email or web address]. U Social History Tobacco Use Types Packs/Day [...] 12/18/2023 12:23 AM Desi Carson RN * [place] Suicide Severity Rating Scale (Screener/Recent Self-Report) Question [...] on filedocumented in this encounter Care Teams Air Traffic Control Specialist Center Relationship Specialty Start Date End Date Pcp, Not Required [address] [place] [id number] PCP - General 12/18/23 documented as of this encounter Additional Source Comments The information contained in this document represents components of the legal health record. It is not the complete legal health record.[facility]
--- OUTSIDE RECORDS SUMMARY | 2025-06-15 16:17 | XMS_ITS | Patient Health Record ---
Author Organization [facility] Address [address] [place] [address] Care Team Providers Care Planer Setup Operator Name Role Phone Griselda(inactive) Riky FIELD Primary Care Provider U Castro Claudio Unavailable [phone] Allergies Allergen (clinical drug ingredient) Drug/Non Drug Allergy documented on EMR Reaction Allergy Type Onset Date Status ciprofloxacin Cipro Unknown Drug Allergy Act willam Levaquin Unknown Drug Allergy Active lidocaine Lidocaine Unknown Drug Allergy Active Sulfa Unknown Drug Allergy Active Reason For Referral No Information Medications Medication SIG (Take, Route, Frequency, Duration) Notes Start Date End Date Status LORazepam 1 MG Tablet TAKE 1 TABLET BY M OUTH 3 TIMES A DAY Oral; Duration: 30 Active Verapamil HCl ER 240 MG Capsule Extended Release 24 Hour TAKE 1 CAPSULE IN THE MORNING ONCE A DAY Oral; Duration: 90 Active Amphetamine-Dextroamphetamin e 10 MG Tablet TAKE (2) TABS IN AM AND (1) TAB IN PM Oral; Duration: 30 Active Cyproheptadine HCl 4 MG Tablet TAKE 1 TABLET THREE TIMES A DAY ORALLY Oral; Duration: 30 Active Multi Vitamin/Minerals 1 Tablet 1 Orally QD 12/19/2014 Active Aspir-81 81 MG Tablet Delayed Release 1 tablet Orally Once a day 12/19/2014 Active Levothyroxine Sodium 25 MCG Tablet 1 tablet Orally Once a day Active Social History Social History Additional Details Category Social Info Options Details Miscellaneous: Marital status: Occupation: Unemployed Section Notes: Nonsmoker > 10 yrs ago; no s ig alcohol Nonsmoker > 10 yrs ago; no s ig alcohol Problems Problem Type SNOMED Code ICD Code Onset Dates Problem Status W/U Status Risk Notes Problem Blood in stool (622424714) Blood in stool (578.1) Active confirmed Problem Colon cancer screening (823221835) Colon cancer screening (V76.51) Active confirmed Problem History of polyp of colon (situation) (006942140) History of colon polyps (V12.72) Active confirmed Problem Screening for malignant neoplasm of colon (882860918) Encounter for screening for malignant neoplasm of colon (Z12.11) Active confirmed Problem Screening for malignant neoplasm of rectum (414068757) Encounter for screening for malignant neoplasm of rectum (Z12.12) Active confirmed Problem Constipation (55518018) Constipation, unspecified constipation type (K59.00) Active confirmed Plan Of Treatment Future Test Test Name Order Date COLONOSCOPY 05/06/2016 Insurance Providers Payer Name Payer Address Payer Phone Subscriber Number Group Number Insured Name Patient Relationship to Insured Coverage Start Date Coverage End Date MEDICARE OF [place] [address] [place] [address] [phone] [id number] LEONEL MCMILLAN Self - patient is the insured [place] [phone] [id number] LEONEL MCMILLAN Self - patient is the insured Medical (General) History Medical History History ICD Code HTN Denies NM,DM,CVA,Lung disease,renal dise ase 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 Shingles ADHD Hypothyroidism Surgical History Surgery Date(Month/Year) Tubal ligation All upper and most of the lower teeth wilkerson ve been removed Nasal surgery Perianal fistula in the s--Dr. Michelle james
--- OUTSIDE RECORDS SUMMARY | 2025-06-15 16:17 | XMS_ITS | Clinical Summary ---
Author Organization [facility] Address [facility] [employer] [address] [address] Phone Care Team Providers Care Latent Fingerprint Examiner Name Role Phone Pcp, Not Required Primary [...] VACCINE (#1) 2025 COVID-19 VACCINE ( - 2024-2 6 season) 2025 RSV VACCINE (1 - 1-dose 75+ series) 2026 HEPATITIS A VACCINES Aged Out No long er eligible based on patient's age to complete this topic HIB VACCINES Aged Out No longer eligi ble based on patient's age to complete this topic IPV VACCINES Aged Out No longer eligi ble [...] Payer (Ef fective 2005-Present) Name:Anahi Apodaca Member ID:[id number] Relation to Subscriber:Self Name:Abeba Apodacaen Subscriber ID:[id number] Payer ID:[id number] Group ID:Not on file Type:Medicare Address: [employer] MEDICARE PART A & B Member Subscriber Plan / Payer (Ef fective 2005-Present) Name:Anahi Apodaca Member ID:[id number] Relation to Subscriber:Self Name:Anahi Apodaca Subscriber ID:[id number] Payer ID:[id number] Group ID:Not on file Type:Medicare Address: [employer] [address] [place] [id number] Care Teams Latent Fingerprint Examiner Relationship Specialty Start Date End Date Pcp, Not Required [address] [place] [id number] PCP - General 12/18/23 Additional Source Comments The information contained in this document represents components of the legal health record. It is not the complete legal health record.[facility]
== END 2025-06-15 11:55 | disposition home or self-care (01) ==
LOC: HO.HMCFM 10:48
PROVIDERS: PCP Family Medicine; Visit Provider Family Medicine
DX: I10 Essential (primary) hypertension (principal); F90.0 Attention-deficit hyperactivity disorder, predominantly inattentive type; M79.89 Other specified soft tissue disorders; E03.9 Hypothyroidism, unspecified

== ENCOUNTER → 2025-06-15 10:47 | Outpatient (BNVA) | payer MEDICARE, SELFPAY | PROVIDERS: PCP Family Medicine; Visit Provider Family Medicine | DX: I10 Essential (primary) hypertension (principal); F90.0 Attention-deficit hyperactivity disorder, predominantly inattentive type; M79.89 Other specified soft tissue disorders; E03.9 Hypothyroidism, unspecified | CPT/HCPCS: 96127; 99212 ==